=== PATIENT | male | born 1950 | race African-American/Black ===

== ENCOUNTER 2017-04-26 11:23 | Inpatient (IN) | payer MEDICARE, MEDICAID ==
[~2017-04-26] VITALS: Ht 180.3 cm; Wt 46.3 kg
[~2017-04-26 11:23] MED LIST: AMLO10TA80 PO; CINA60 PO; CLON0.1T PO; ESOM20SU PO; FOLI-43 PO; FOLI1TAB63 PO; HYDR-523 PO; LOSA100T14 PO; MEGE40TA2; OMEPRAZOLE; ONDA4TAB5 PO; PROSTAT; SIMV20TA6 PO; TEMA30CA5 PO; TRAM50TA3 PO
[2017-04-26] MEDS ORDERED: NITROGLYCERIN OINT 1GM/INCH UDPKT TD STA (12:12)
[2017-04-26] MEDS ORDERED: MORPHINE SULFATE 4 MG/ML CPJ (NOT FOR IM USE) IV STA (12:12)
[2017-04-26] MEDS ORDERED: CLOPIDOGREL 75MG TABLET PO ONE (12:15)
[2017-04-26 12:33] LABS: BASOPHILS % 0.3 % (0.0-2.0); HEMATOCRIT. 35.3 % (42.0-52.0); HEMOGLOBIN. 11.8 g/dL (14.0-18.0); LYMPHOCYTES % 15.9 % (20.0-50.0); MEAN CORPUSCULAR VOLUME 86.6 fL (80.0-94.0); MEAN PLATELET VOLUME 7.7 fl (7.4-10.4); MONOCYTES % 8.1 % (2.0-8.0); NEUTROPHILS % 74.7 % (40.0-76.0); PLATELET 217 x1000/uL (130-400); RED BLOOD CELL COUNT 4.07 mill/uL (4.7-6.1); RED CELL DISTRIBUTION WIDTH 16.8 % (11.6-14.6)
[2017-04-26 12:47] LABS: CARBON DIOXIDE 24 mEq/L (21-32); CHLORIDE 101 mEq/L (98-107); TROPONIN I 0.03 ng/mL (0.00-0.04)
[2017-04-26] MEDS ORDERED: LORAZEPAM 2MG/ML CPJ IV ONE (14:30)
[2017-04-26] MEDS ORDERED: MORPHINE SULFATE 2 MG/ML CPJ (NOT FOR IM USE) IV ONE (14:30)
[2017-04-26] MEDS ORDERED: IPRATROPIUM/ALBUTEROL 0.5-3(2.5)MG/3ML NEB INH PRN (15:00)
[2017-04-26] MEDS ORDERED: CLONIDINE 0.1MG TABLET PO PRN (15:00)
[2017-04-26] MEDS ORDERED: DOCUSATE SODIUM 100MG CAPSULE PO PRN (15:00)
[2017-04-26] MEDS ORDERED: GUAIFENESIN 200MG/10ML SUGAR FREE UDC PO PRN (15:00)
[2017-04-26] MEDS ORDERED: ONDANSETRON HCL 4MG/2ML VIAL IV PRN (15:00)
[2017-04-26] MEDS ORDERED: REGADENOSON 0.4 MG/5 ML IV NR (16:45)
[2017-04-26 17:33] VITALS: BP 197/95
[2017-04-26] MEDS: AMLODIPINE 10MG TABLET PO SCH (17:41)
[2017-04-26 17:52] VITALS: BP 197/95
[2017-04-26] MEDS: LOSARTAN POTASSIUM 100 MG TABLET PO SCH (18:56)
[2017-04-26 20:00] VITALS: BP 162/83
[2017-04-26] MEDS: METOPROLOL TARTRATE 25MG TABLET PO SCH (21:10)
[2017-04-26] MEDS: HYDROMORPHONE HCL/PF 2MG/ML CPJ IV PRN (21:10)
[2017-04-26 23:24] LABS: TROPONIN I 0.06 ng/mL (0.00-0.04)
[2017-04-26] MEDS: DIPHENHYDRAMINE 50MG/ML VIAL IV PRN (23:45)
[2017-04-27] VITALS: BP 115/73
[2017-04-27 04:00] VITALS: BP 164/96
[2017-04-27 07:54] LABS: BASOPHILS % 0.6 % (0.0-2.0); EOSINOPHILS % 5.3 % (0.0-5.0); HEMOGLOBIN. 12.3 g/dL (14.0-18.0); LYMPHOCYTES % 20.1 % (20.0-50.0); MEAN CORPUSCULAR VOLUME 84.6 fL (80.0-94.0); MEAN PLATELET VOLUME 7.7 fl (7.4-10.4); MONOCYTES % 9.5 % (2.0-8.0); NEUTROPHILS % 64.5 % (40.0-76.0); PLATELET 220 x1000/uL (130-400); RED BLOOD CELL COUNT 4.26 mill/uL (4.7-6.1); RED CELL DISTRIBUTION WIDTH 16.9 % (11.6-14.6)
[2017-04-27 08:00] VITALS: BP 176/73
[2017-04-27 08:05] LABS: CARBON DIOXIDE 27 mEq/L (21-32); CHLORIDE 99 mEq/L (98-107); CREATINE KINASE 104 IU/L (39-308); CREATINE KINASE MB FRACTION 2.3 ng/mL (0.5-3.6); LDL CHOLESTEROL 51 mg/dL (5-100); PHOSPHORUS 3.1 mg/dL (2.5-4.9); TROPONIN I 0.04 ng/mL (0.00-0.04)
[2017-04-27 08:06] LABS: HDL CHOLESTEROL 61 mg/dL (40-59)
[2017-04-27] MEDS: LOSARTAN POTASSIUM 100 MG TABLET PO SCH (09:00)
[2017-04-27] MEDS: METOPROLOL TARTRATE 25MG TABLET PO SCH ×2 (09:00→19:35)
[2017-04-27] MEDS: AMLODIPINE 10MG TABLET PO SCH (09:00)
[2017-04-27] MEDS: FOLIC ACID/VITAMIN B COMP W-C TABLET PO SCH (09:26)
[2017-04-27] MEDS: CINACALCET HCL 60MG TABLET PO SCH (09:26)
[2017-04-27] MEDS: ASPIRIN 81MG EC TABLET PO SCH (09:26)
[2017-04-27] MEDS: ACETAMINOPHEN 325MG TABLET PO PRN ×2 (09:30→17:51)
[2017-04-27] MEDS ORDERED: REGADENOSON 0.4 MG/5 ML IV ONE (11:55)
[2017-04-27 12:00] VITALS: BP 135/75
[2017-04-27 16:00] VITALS: BP 167/73
[2017-04-27] MEDS: HYDROMORPHONE HCL/PF 2MG/ML CPJ IV PRN (19:35)
[2017-04-27 20:00] VITALS: BP 167/76
[2017-04-28] VITALS: BP 187/90
[2017-04-28 04:00] VITALS: BP_SYST 153; BP_SYST 163; BP_DIAS 78
[2017-04-28 07:39] LABS: BASOPHILS % 0.7 % (0.0-2.0); EOSINOPHILS % 5.5 % (0.0-5.0); HEMATOCRIT. 27.2 % (42.0-52.0); HEMOGLOBIN. 9.5 g/dL (14.0-18.0); LYMPHOCYTES % 24.9 % (20.0-50.0); MEAN CORPUSCULAR HEMOGLOBIN 29.4 pg (28.0-32.0); MEAN CORPUSCULAR VOLUME 83.9 fL (80.0-94.0); MONOCYTES % 10.7 % (2.0-8.0); NEUTROPHILS % 58.2 % (40.0-76.0); PLATELET 194 x1000/uL (130-400); RED BLOOD CELL COUNT 3.24 mill/uL (4.7-6.1); RED CELL DISTRIBUTION WIDTH 16.7 % (11.6-14.6)
[2017-04-28 08:00] VITALS: BP 143/68
[2017-04-28 08:48] LABS: TROPONIN I 0.03 ng/mL (0.00-0.04)
[2017-04-28] MEDS: FOLIC ACID/VITAMIN B COMP W-C TABLET PO SCH (08:48)
[2017-04-28] MEDS: METOPROLOL TARTRATE 25MG TABLET PO SCH (08:48)
[2017-04-28] MEDS: CINACALCET HCL 60MG TABLET PO SCH (08:48)
[2017-04-28] MEDS: ASPIRIN 81MG EC TABLET PO SCH (08:48)
[2017-04-28] MEDS: LOSARTAN POTASSIUM 100 MG TABLET PO SCH (08:48)
[2017-04-28] MEDS: AMLODIPINE 10MG TABLET PO SCH (08:48)
[2017-04-28] MEDS: DIPHENHYDRAMINE 50MG/ML VIAL IV PRN (08:56)
[2017-04-28] MEDS: HYDROMORPHONE HCL/PF 2MG/ML CPJ IV PRN (08:57)
[2017-04-28 12:00] VITALS: BP 155/70
[2017-04-28 16:00] VITALS: BP 148/65
[2017-04-28 16:19] VITALS: BP 148/65
[2017-06-13] MEDS ORDERED: LOSA100T3 PO (23:29)
[2017-06-13] MEDS ORDERED: SIMV20TA6 PO (23:29)
[2017-06-13] MEDS ORDERED: HYDR-4134 PO (23:29)
[2017-06-13] MEDS ORDERED: CHOL100044 PO (23:29)
== END 2017-04-28 16:45 | DRG 194 ==
LOC: ER 11:46 → 7WST 13:13 → EDBEDREQ 13:47 → ENRESERV 15:36
PROVIDERS: ADMIT Hospitalist; ATTEND Hospitalist
PROC: 5A1D00Z (ICD-10-PCS; principal; 2017-04-27)
DX: I13.2 Hypertensive heart and chronic kidney disease with heart failure and with stage 5 chronic kidney disease, or end stage renal disease (principal); N18.6 End stage renal disease; I69.354 Hemiplegia and hemiparesis following cerebral infarction affecting left non-dominant side; R07.9 Chest pain, unspecified; I50.32 Chronic diastolic (congestive) heart failure; E87.5 Hyperkalemia; F14.10 Cocaine abuse, uncomplicated; E78.5 Hyperlipidemia, unspecified; D63.8 Anemia in other chronic diseases classified elsewhere; I44.7 Left bundle-branch block, unspecified; K40.90 Unilateral inguinal hernia, without obstruction or gangrene, not specified as recurrent; J44.9 Chronic obstructive pulmonary disease, unspecified; K21.9 Gastro-esophageal reflux disease without esophagitis; R47.01 Aphasia; Z74.01 Bed confinement status; Z87.01 Personal history of pneumonia (recurrent); Z87.891 Personal history of nicotine dependence; Z99.2 Dependence on renal dialysis; Z79.899 Other long term (current) drug therapy; Z79.1 Long term (current) use of non-steroidal anti-inflammatories (NSAID); Z88.6 Allergy status to analgesic agent
CPT/HCPCS: 36415; 71010; 78452; 80048; 80053; 80061; 82550; 82553; 82962; 83690; 84100; 84484; 85025; 93005; 93017; 93306; 93970; 96374; 96375; 96376; 99285; A9500; C1893; J1170; J1200; J2060; J2270; J2785

== ENCOUNTER 2018-03-27 13:52 | Inpatient (IN) | payer MEDICARE, MEDICAID ==
[~2018-03-27] VITALS: Ht 177.8 cm; Wt 63.5 kg
[~2018-03-27 13:52] MED LIST changes: +ACET-2853 PO; +CHOL100044 PO; -FOLI-43 PO; +HYDR-4134 PO; -LOSA100T14 PO; +LOSA100T3 PO; -MEGE40TA2; -OMEPRAZOLE; -PROSTAT
[2018-03-27 17:03] LABS: HEMATOCRIT. 35.7 % (42.0-52.0); HEMOGLOBIN. 12.3 g/dL (14.0-18.0); MEAN CORPUSCULAR HEMOGLOBIN 31.4 pg (28.0-32.0); MEAN CORPUSCULAR VOLUME 91.3 fL (80.0-94.0); MEAN PLATELET VOLUME 7.6 fl (7.4-10.4); PLATELET 253 x1000/uL (130-400); RED BLOOD CELL COUNT 3.91 mill/uL (4.7-6.1); RED CELL DISTRIBUTION WIDTH 16.1 % (11.6-14.6)
[2018-03-27 17:06] LABS: CHLORIDE 95 mEq/L (98-107)
[2018-03-27 17:08] LABS: INR 1.1; PROTHROMBIN TIME 10.6 sec (9.1-11.1)
[2018-03-27 17:41] LABS: PLATELET ESTIMATE NORMAL
[2018-03-28] VITALS (10 sets, daily range): BP systolic 93–123; BP diastolic 57–77
[2018-03-28] MEDS ORDERED: ONDANSETRON 4MG ODT PO PRN (09:15)
[2018-03-28] MEDS ORDERED: CLONIDINE 0.1MG TABLET PO PRN (09:15)
[2018-03-28] MEDS ORDERED: ONDANSETRON HCL 4MG/2ML VIAL IV PRN (09:15)
[2018-03-28] MEDS: AMLODIPINE 10MG TABLET PO SCH (11:11)
[2018-03-28] MEDS: PANTOPRAZOLE SODIUM 40 MG/VIAL IV SCH (11:11)
[2018-03-28] MEDS: FOLIC ACID/VITAMIN B COMP W-C TABLET PO SCH (11:12)
[2018-03-28] MEDS: CHOLECALCIFEROL (D3) 1000 UNIT TABLET PO SCH (11:12)
[2018-03-28] MEDS ORDERED: BISACODYL 10MG SUPP PR PRN (12:00)
[2018-03-28] MEDS ORDERED: BISACODYL 10MG SUPP PR NR (12:00)
[2018-03-28] MEDS ORDERED: DILTIAZEM HCL 5MG/ML 5ML VIAL IV PRN (16:00)
[2018-03-28] MEDS: CINACALCET HCL 60MG TABLET PO SCH (18:39)
[2018-03-28] MEDS: ENOXAPARIN 30MG/0.3ML SYR SUBCUT SCH (18:41)
[2018-03-28 20:27] LABS: AMMONIA 32 uMol/L (<32)
[2018-03-28] MEDS: ATORVASTATIN CALCIUM 20MG TABLET PO SCH (21:23)
[2018-03-28] MEDS: CARVEDILOL 3.125 MG TABLET PO SCH (21:23)
[2018-03-28] MEDS: ACETAMINOPHEN 325MG TABLET PO PRN (21:48)
[2018-03-29] VITALS (16 sets, daily range): BP systolic 86–155; BP diastolic 54–73
[2018-03-29 06:16] LABS: BASOPHILS % 0.2 % (0.0-2.0); HEMATOCRIT. 35.9 % (42.0-52.0); HEMOGLOBIN. 12.2 g/dL (14.0-18.0); MEAN CORPUSCULAR HEMOGLOBIN 31.4 pg (28.0-32.0); MEAN CORPUSCULAR VOLUME 92.6 fL (80.0-94.0); MEAN PLATELET VOLUME 8.6 fl (7.4-10.4); MONOCYTES % 6.1 % (2.0-8.0); NEUTROPHILS % 83.7 % (40.0-76.0); PLATELET 219 x1000/uL (130-400); RED BLOOD CELL COUNT 3.88 mill/uL (4.7-6.1); RED CELL DISTRIBUTION WIDTH 16.4 % (11.6-14.6)
[2018-03-29] MEDS ORDERED: LIDOCAINE HCL 1% 20ML VIAL (Pyxis) INJ ONE (07:26)
[2018-03-29] MEDS: CHOLECALCIFEROL (D3) 1000 UNIT TABLET PO SCH (09:00)
[2018-03-29] MEDS: AMLODIPINE 10MG TABLET PO SCH (09:00)
[2018-03-29] MEDS: CARVEDILOL 3.125 MG TABLET PO SCH ×2 (09:00→21:19)
[2018-03-29] MEDS ORDERED: METOPROLOL TARTRATE 25MG TABLET PO SCH (10:00)
[2018-03-29] MEDS: PANTOPRAZOLE SODIUM 40 MG/VIAL IV SCH (10:07)
[2018-03-29] MEDS: FOLIC ACID/VITAMIN B COMP W-C TABLET PO SCH (10:14)
[2018-03-29] MEDS ORDERED: DILTIAZEM HCL 5MG/ML 5ML VIAL IV PRN (14:15)
[2018-03-29] MEDS ORDERED: DILTIAZEM HCL 125 MG in DEXT 5% WATER 100 ML IV PRN (17:00)
[2018-03-29] MEDS: CINACALCET HCL 60MG TABLET PO SCH ×2 (17:00→19:03)
[2018-03-29] MEDS: DILTIAZEM HCL 125 MG in DEXT 5% WATER 100 ML IV SCH (17:18)
[2018-03-29] MEDS: ENOXAPARIN 30MG/0.3ML SYR SUBCUT SCH (18:11)
[2018-03-29] MEDS: ATORVASTATIN CALCIUM 20MG TABLET PO SCH (21:19)
[2018-03-30] VITALS (12 sets, daily range): BP systolic 107–124; BP diastolic 57–75
[2018-03-30] MEDS: DILTIAZEM HCL 125 MG in DEXT 5% WATER 100 ML IV SCH ×2 (00:21→05:45)
[2018-03-30 06:16] LABS: BASOPHILS % 0.1 % (0.0-2.0); HEMATOCRIT. 36.3 % (42.0-52.0); HEMOGLOBIN. 12.5 g/dL (14.0-18.0); LYMPHOCYTES % 7.9 % (20.0-50.0); MEAN CORPUSCULAR HEMOGLOBIN 31.8 pg (28.0-32.0); MEAN CORPUSCULAR VOLUME 92.6 fL (80.0-94.0); MEAN PLATELET VOLUME 8.7 fl (7.4-10.4); MONOCYTES % 5.9 % (2.0-8.0); NEUTROPHILS % 86.1 % (40.0-76.0); PLATELET 250 x1000/uL (130-400); RED BLOOD CELL COUNT 3.92 mill/uL (4.7-6.1); RED CELL DISTRIBUTION WIDTH 16.4 % (11.6-14.6)
[2018-03-30 07:46] LABS: BG BASE EXCESS 4.4 mmol/L (-2.0-2.0); BG CARBOXYHEMOGLOBIN 0.2 % (0.5-1.5); BG DEOXYHEMOGLOBIN 6.7 % (0.0-5.0); BG HCO3 ACT 28.8 mmol/L (22.0-26.0); BG METHEMOGLOBIN 0.3 % (0.0-1.5); BG OXYGEN SATURATION 93.3 % (92.0-98.5); BG OXYHEMOGLOBIN 92.8 % (94.0-97.0); BG PCO2 42.1 mmHg (35.0-45.0); BG PH 7.453 (7.350-7.450); BG PO2 65.6 mmHg (75.0-100.0); BG SAMPLE SITE LEFT RADIAL; BG TOTAL HEMOGLOBIN 12.4 g/dL (12.0-18.0); BG VENT MODE MASK - NRB
[2018-03-30] MEDS: FAMOTIDINE 20MG/2ML VIAL IV SCH (08:37)
[2018-03-30] MEDS: FOLIC ACID/VITAMIN B COMP W-C TABLET GT SCH (08:37)
[2018-03-30] MEDS: AMLODIPINE 10MG TABLET PO SCH (08:38)
[2018-03-30] MEDS: CHOLECALCIFEROL (D3) 1000 UNIT TABLET PO SCH (08:38)
[2018-03-30] MEDS: CARVEDILOL 3.125 MG TABLET PO SCH ×2 (08:39→21:04)
[2018-03-30 09:32] LABS: PHOSPHORUS 1.9 mg/dL (2.5-4.9)
[2018-03-30 09:36] LABS: T4 FREE 1.12 ng/dL (0.76-1.46)
[2018-03-30] MEDS: PIPERACILLIN/TAZ 2.25G PREMIX 50 ML IV SCH ×2 (12:28→17:21)
[2018-03-30] MEDS ORDERED: ALBUTEROL (0.083%) 2.5MG/3ML NEB HHN PRN (14:45)
[2018-03-30 15:11] LABS: BG BASE EXCESS 2.8 mmol/L (-2.0-2.0); BG CARBOXYHEMOGLOBIN 0.5 % (0.5-1.5); BG DEOXYHEMOGLOBIN 6.5 % (0.0-5.0); BG HCO3 ACT 26.6 mmol/L (22.0-26.0); BG METHEMOGLOBIN 0.2 % (0.0-1.5); BG OXYGEN SATURATION 93.5 % (92.0-98.5); BG OXYHEMOGLOBIN 92.8 % (94.0-97.0); BG PH 7.463 (7.350-7.450); BG PO2 65.6 mmHg (75.0-100.0); BG SAMPLE SITE LEFT RADIAL; BG TOTAL HEMOGLOBIN 12.8 g/dL (12.0-18.0); BG VENT MODE MASK - NRB
[2018-03-30] MEDS ORDERED: SODIUM PHOS,M-BASIC-D-BASIC 15 MM in DEXT 5% WATER 245 ML IV NR (16:30)
[2018-03-30] MEDS: ALBUTEROL (0.083%) 2.5MG/3ML NEB HHN SCH ×2 (16:45→21:00)
[2018-03-30] MEDS: ENOXAPARIN 30MG/0.3ML SYR SUBCUT SCH (18:51)
[2018-03-30] MEDS: ATORVASTATIN CALCIUM 20MG TABLET PO SCH (21:04)
[2018-03-31] VITALS (12 sets, daily range): BP systolic 95–113; BP diastolic 49–67
[2018-03-31] MEDS: PIPERACILLIN/TAZ 2.25G PREMIX 50 ML IV SCH ×3 (01:04→18:04)
[2018-03-31] MEDS: ALBUTEROL (0.083%) 2.5MG/3ML NEB HHN SCH ×7 (01:07→23:57)
[2018-03-31 06:17] LABS: HEMATOCRIT. 35.1 % (42.0-52.0); HEMOGLOBIN. 12.3 g/dL (14.0-18.0); MEAN CORPUSCULAR HEMOGLOBIN 32.9 pg (28.0-32.0); MEAN CORPUSCULAR VOLUME 93.7 fL (80.0-94.0); MEAN PLATELET VOLUME 8.9 fl (7.4-10.4); PLATELET 234 x1000/uL (130-400); RED BLOOD CELL COUNT 3.74 mill/uL (4.7-6.1); RED CELL DISTRIBUTION WIDTH 16.7 % (11.6-14.6)
[2018-03-31 08:04] LABS: BG BASE EXCESS 0.5 mmol/L (-2.0-2.0); BG CARBOXYHEMOGLOBIN 0.3 % (0.5-1.5); BG DEOXYHEMOGLOBIN 15.6 % (0.0-5.0); BG FRACTION INSPIRED OXYGEN 32; BG HCO3 ACT 24.7 mmol/L (22.0-26.0); BG METHEMOGLOBIN 0.3 % (0.0-1.5); BG OXYGEN SATURATION 84.3 % (92.0-98.5); BG OXYHEMOGLOBIN 83.8 % (94.0-97.0); BG PO2 47.1 mmHg (75.0-100.0); BG SAMPLE SITE LEFT RADIAL; BG TOTAL HEMOGLOBIN 11.9 g/dL (12.0-18.0); BG VENT MODE NASAL CANNULA
[2018-03-31] MEDS: CARVEDILOL 3.125 MG TABLET PO SCH ×2 (09:00→21:00)
[2018-03-31] MEDS: AMLODIPINE 10MG TABLET PO SCH (09:00)
[2018-03-31] MEDS: FOLIC ACID/VITAMIN B COMP W-C TABLET GT SCH (09:59)
[2018-03-31] MEDS: FAMOTIDINE 20MG/2ML VIAL IV SCH (09:59)
[2018-03-31] MEDS: CHOLECALCIFEROL (D3) 1000 UNIT TABLET PO SCH (09:59)
[2018-03-31 10:03] LABS: BG CARBOXYHEMOGLOBIN 0.4 % (0.5-1.5); BG DEOXYHEMOGLOBIN 4.7 % (0.0-5.0); BG FRACTION INSPIRED OXYGEN 99.8; BG HCO3 ACT 24.9 mmol/L (22.0-26.0); BG METHEMOGLOBIN 0.4 % (0.0-1.5); BG OXYGEN SATURATION 95.3 % (92.0-98.5); BG OXYHEMOGLOBIN 94.5 % (94.0-97.0); BG PH 7.445 (7.350-7.450); BG SAMPLE SITE LEFT RADIAL; BG TOTAL HEMOGLOBIN 11.7 g/dL (12.0-18.0); BG VENT MODE MASK - NRB
[2018-03-31] MEDS: DILTIAZEM HCL 125 MG in DEXT 5% WATER 100 ML IV SCH ×2 (10:03→21:28)
[2018-03-31] MEDS ORDERED: SODIUM CHLORIDE 0.9% 250ML IV SOLN IV SCH (10:30)
[2018-03-31 11:02] LABS: PHOSPHORUS 2.5 mg/dL (2.5-4.9)
[2018-03-31 13:37] LABS: PLATELET ESTIMATE NORMAL
[2018-03-31] MEDS: ENOXAPARIN 30MG/0.3ML SYR SUBCUT SCH (18:04)
[2018-03-31] MEDS: ATORVASTATIN CALCIUM 20MG TABLET PO SCH (21:28)
[2018-04-01] VITALS (19 sets, daily range): BP systolic 91–148; BP diastolic 41–110
[2018-04-01] MEDS: PIPERACILLIN/TAZ 2.25G PREMIX 50 ML IV SCH ×3 (01:50→17:34)
[2018-04-01] MEDS: ALBUTEROL (0.083%) 2.5MG/3ML NEB HHN SCH ×5 (04:07→20:49)
[2018-04-01 07:22] LABS: HEMATOCRIT. 30.6 % (42.0-52.0); HEMOGLOBIN. 10.2 g/dL (14.0-18.0); MEAN CORPUSCULAR HEMOGLOBIN 31.2 pg (28.0-32.0); MEAN CORPUSCULAR VOLUME 93.2 fL (80.0-94.0); MEAN PLATELET VOLUME 8.8 fl (7.4-10.4); PLATELET 244 x1000/uL (130-400); RED BLOOD CELL COUNT 3.28 mill/uL (4.7-6.1); RED CELL DISTRIBUTION WIDTH 16.4 % (11.6-14.6)
[2018-04-01] MEDS: DILTIAZEM HCL 125 MG in DEXT 5% WATER 100 ML IV SCH (08:56)
[2018-04-01] MEDS: ENOXAPARIN 60MG/0.6ML SYR SUBCUT SCH (08:57)
[2018-04-01] MEDS: FAMOTIDINE 20MG/2ML VIAL IV SCH (08:57)
[2018-04-01] MEDS: FOLIC ACID/VITAMIN B COMP W-C TABLET GT SCH (08:57)
[2018-04-01] MEDS: CHOLECALCIFEROL (D3) 1000 UNIT TABLET PO SCH (08:57)
[2018-04-01] MEDS: CARVEDILOL 3.125 MG TABLET PO SCH (08:59)
[2018-04-01] MEDS: AMLODIPINE 10MG TABLET PO SCH (08:59)
[2018-04-01 11:27] LABS: BG BASE EXCESS -1.7 mmol/L (-2.0-2.0); BG CARBOXYHEMOGLOBIN 0.3 % (0.5-1.5); BG DEOXYHEMOGLOBIN 3.3 % (0.0-5.0); BG FRACTION INSPIRED OXYGEN 100; BG METHEMOGLOBIN 0.3 % (0.0-1.5); BG OXYGEN SATURATION 96.7 % (92.0-98.5); BG OXYHEMOGLOBIN 96.1 % (94.0-97.0); BG PCO2 38.5 mmHg (35.0-45.0); BG PH 7.394 (7.350-7.450); BG PO2 92.7 mmHg (75.0-100.0); BG SAMPLE SITE LEFT RADIAL; BG TOTAL HEMOGLOBIN 10.8 g/dL (12.0-18.0); BG VENT MODE MASK - NRB
[2018-04-01 13:57] LABS: PLATELET ESTIMATE NORMAL
[2018-04-01] MEDS: METOPROLOL TARTRATE 25MG TABLET PO SCH ×2 (14:23→20:39)
[2018-04-01] MEDS: ACETYLCYSTEINE 100MG/ML 10% VIAL 4ML INH SCH (16:28)
[2018-04-01] MEDS: BUDESONIDE 0.5MG/2ML NEB HHN SCH ×2 (16:28→20:49)
[2018-04-01] MEDS: ATORVASTATIN CALCIUM 20MG TABLET PO SCH (20:39)
[2018-04-01] MEDS: MORPHINE SULFATE 4 MG/ML CPJ (NOT FOR IM USE) IV PRN (22:44)
[2018-04-02] VITALS (19 sets, daily range): BP systolic 94–151; BP diastolic 57–75
[2018-04-02] MEDS: ACETYLCYSTEINE 100MG/ML 10% VIAL 4ML INH SCH ×3 (00:25→15:43)
[2018-04-02] MEDS: ALBUTEROL (0.083%) 2.5MG/3ML NEB HHN SCH ×6 (00:26→20:51)
[2018-04-02] MEDS: PIPERACILLIN/TAZ 2.25G PREMIX 50 ML IV SCH ×3 (01:30→18:34)
[2018-04-02] MEDS: MORPHINE SULFATE 4 MG/ML CPJ (NOT FOR IM USE) IV PRN (06:42)
[2018-04-02 07:07] LABS: HEMATOCRIT. 32.1 % (42.0-52.0); MEAN CORPUSCULAR HEMOGLOBIN 31.4 pg (28.0-32.0); MEAN CORPUSCULAR VOLUME 91.7 fL (80.0-94.0); MEAN PLATELET VOLUME 8.9 fl (7.4-10.4); PLATELET 281 x1000/uL (130-400); RED CELL DISTRIBUTION WIDTH 16.6 % (11.6-14.6)
[2018-04-02] MEDS ORDERED: DILTIAZEM HCL 60MG TABLET PO SCH (08:00)
[2018-04-02] MEDS: BUDESONIDE 0.5MG/2ML NEB HHN SCH ×2 (08:31→20:51)
[2018-04-02] MEDS: FOLIC ACID/VITAMIN B COMP W-C TABLET GT SCH (08:47)
[2018-04-02] MEDS: FAMOTIDINE 20MG/2ML VIAL IV SCH (08:47)
[2018-04-02] MEDS: CHOLECALCIFEROL (D3) 1000 UNIT TABLET PO SCH (08:48)
[2018-04-02] MEDS: ENOXAPARIN 60MG/0.6ML SYR SUBCUT SCH (08:48)
[2018-04-02] MEDS: METOPROLOL TARTRATE 50MG TABLET PO SCH ×2 (09:03→21:14)
[2018-04-02 10:48] LABS: PLATELET ESTIMATE NORMAL
[2018-04-02] MEDS: DILTIAZEM HCL 90MG TABLET PO SCH ×2 (12:41→18:00)
[2018-04-02] MEDS: SODIUM CHLORIDE 0.45% 1,000 ML IV SCH (13:20)
[2018-04-02] MEDS: DILTIAZEM HCL 125 MG in DEXT 5% WATER 100 ML IV SCH ×2 (13:46→21:00)
[2018-04-02 14:58] LABS: INR 1.1; PROTHROMBIN TIME 10.9 sec (9.1-11.1)
[2018-04-02] MEDS ORDERED: VANCOMYCIN 1250MG in DEXTROSE 5% WATER 250ML IV NR (18:00)
[2018-04-02] MEDS: METOCLOPRAMIDE HCL 10MG/2ML VIAL IV SCH (18:45)
[2018-04-02] MEDS: ATORVASTATIN CALCIUM 20MG TABLET PO SCH (21:09)
[2018-04-02] MEDS ORDERED: HYDROCODONE/ACETAMINOPHEN 5/325MG TABLET PO PRN (21:30)
[2018-04-02] MEDS: TEMAZEPAM 15MG CAPSULE PO PRN (22:01)
[2018-04-03] VITALS (18 sets, daily range): BP systolic 82–161; BP diastolic 41–72
[2018-04-03] MEDS: ACETYLCYSTEINE 100MG/ML 10% VIAL 4ML INH SCH ×3 (00:48→16:36)
[2018-04-03] MEDS: ALBUTEROL (0.083%) 2.5MG/3ML NEB HHN SCH ×6 (00:48→20:12)
[2018-04-03] MEDS: PIPERACILLIN/TAZ 2.25G PREMIX 50 ML IV SCH ×3 (01:32→18:14)
[2018-04-03] MEDS: METOCLOPRAMIDE HCL 10MG/2ML VIAL IV SCH ×4 (01:32→23:48)
[2018-04-03] MEDS: DILTIAZEM HCL 90MG TABLET PO SCH ×4 (05:19→23:49)
[2018-04-03] MEDS: DILTIAZEM HCL 125 MG in DEXT 5% WATER 100 ML IV SCH ×3 (05:21→23:19)
[2018-04-03 07:28] LABS: HEMATOCRIT. 32.6 % (42.0-52.0); HEMOGLOBIN. 10.8 g/dL (14.0-18.0); MEAN CORPUSCULAR HEMOGLOBIN 30.9 pg (28.0-32.0); MEAN CORPUSCULAR VOLUME 93.6 fL (80.0-94.0); MEAN PLATELET VOLUME 8.7 fl (7.4-10.4); PLATELET 274 x1000/uL (130-400); RED BLOOD CELL COUNT 3.48 mill/uL (4.7-6.1); RED CELL DISTRIBUTION WIDTH 16.2 % (11.6-14.6)
[2018-04-03] MEDS: BUDESONIDE 0.5MG/2ML NEB HHN SCH (07:54)
[2018-04-03] MEDS: FAMOTIDINE 20MG/2ML VIAL IV SCH (09:55)
[2018-04-03] MEDS: CHOLECALCIFEROL (D3) 1000 UNIT TABLET PO SCH (09:55)
[2018-04-03] MEDS: FOLIC ACID/VITAMIN B COMP W-C TABLET GT SCH (09:55)
[2018-04-03] MEDS: METOPROLOL TARTRATE 50MG TABLET PO SCH ×2 (09:56→20:17)
[2018-04-03] MEDS: SODIUM CHLORIDE 0.45% 1,000 ML IV SCH (11:15)
[2018-04-03] MEDS ORDERED: BACITRACIN ZINC 15GM TUBE TOP ONE (12:24)
[2018-04-03] MEDS ORDERED: BUPIVACAINE HCL/PF 0.5% (5MG/ML) 10ML ONE ×2 (12:25→13:09)
[2018-04-03] MEDS ORDERED: THROMBIN (BOVINE) 5000 UNITS/VIAL TOP ONE (12:25)
[2018-04-03] MEDS ORDERED: HEPARIN SODIUM 1,000 UNIT/1ML VIAL IV ONE (12:25)
[2018-04-03] MEDS ORDERED: LIDOCAINE HCL/PF 1% 10 MG/ML 5ML VIAL ONE ×3 (12:26→13:09)
[2018-04-03] MEDS ORDERED: GELATIN SPONGE,COMPRESSED SZ 100 ONE (12:26)
[2018-04-03] MEDS ORDERED: BACITRACIN 50,000 UNITS/VIAL ONE (12:26)
[2018-04-03] MEDS ORDERED: NORMAL SALINE 0.9% 10 ML SYR ONE (12:27)
[2018-04-03] MEDS ORDERED: FENTANYL CITRATE/PF 50MCG/ML 2ML VIAL ONE (12:56)
[2018-04-03] MEDS ORDERED: PROPOFOL 200MG/20ML VIAL IV ONE (12:56)
[2018-04-03] MEDS ORDERED: GLYCOPYRROLATE 0.2 MG/ML 2ML VIAL ONE (12:57)
[2018-04-03] MEDS ORDERED: ONDANSETRON HCL 4MG/2ML VIAL ONE (12:57)
[2018-04-03] MEDS ORDERED: MIDAZOLAM HCL 2 MG/2 ML VIAL ONE ×2 (12:57→13:05)
[2018-04-03] MEDS ORDERED: METOCLOPRAMIDE HCL 10MG/2ML VIAL ONE (12:57)
[2018-04-03] MEDS ORDERED: HEPARIN 5000 UNITS/ML VIAL ONE (13:16)
[2018-04-03] MEDS ORDERED: SODIUM CHLORIDE 0.9% 1,000 ML IV NR (13:53)
[2018-04-03] MEDS ORDERED: SKIN ADHESIVE 0.7 GM EA TOP ONE (13:59)
[2018-04-03] MEDS ORDERED: ONDANSETRON HCL 4MG/2ML VIAL IV PRN (14:00)
[2018-04-03] MEDS: HYDROMORPHONE HCL/PF 2MG/ML CPJ IV PRN ×3 (15:08→15:35)
[2018-04-03 15:16] LABS: PLATELET ESTIMATE NORMAL
[2018-04-03 18:01] LABS: AMMONIA 27 uMol/L (<32)
[2018-04-03] MEDS: ATORVASTATIN CALCIUM 20MG TABLET PO SCH (20:17)
[2018-04-03] MEDS: TEMAZEPAM 15MG CAPSULE PO PRN (20:20)
[2018-04-04] VITALS (12 sets, daily range): BP systolic 112–174; BP diastolic 54–71
[2018-04-04] MEDS: ACETYLCYSTEINE 100MG/ML 10% VIAL 4ML INH SCH ×3 (00:21→14:00)
[2018-04-04] MEDS: ALBUTEROL (0.083%) 2.5MG/3ML NEB HHN SCH ×5 (00:22→21:11)
[2018-04-04] MEDS: BUDESONIDE 0.5MG/2ML NEB HHN SCH ×2 (00:33→13:04)
[2018-04-04] MEDS: PIPERACILLIN/TAZ 2.25G PREMIX 50 ML IV SCH ×3 (00:51→17:36)
[2018-04-04] MEDS: METOCLOPRAMIDE HCL 10MG/2ML VIAL IV SCH ×3 (05:22→17:37)
[2018-04-04] MEDS: DILTIAZEM HCL 90MG TABLET PO SCH ×3 (05:22→17:38)
[2018-04-04] MEDS: SODIUM CHLORIDE 0.45% 1,000 ML IV SCH (06:31)
[2018-04-04] MEDS: DILTIAZEM HCL 125 MG in DEXT 5% WATER 100 ML IV SCH (06:31)
[2018-04-04 07:25] LABS: HEMATOCRIT. 29.2 % (42.0-52.0); HEMOGLOBIN. 9.8 g/dL (14.0-18.0); MEAN CORPUSCULAR HEMOGLOBIN 30.8 pg (28.0-32.0); MEAN CORPUSCULAR VOLUME 92.2 fL (80.0-94.0); MEAN PLATELET VOLUME 8.5 fl (7.4-10.4); PLATELET 301 x1000/uL (130-400); RED BLOOD CELL COUNT 3.16 mill/uL (4.7-6.1); RED CELL DISTRIBUTION WIDTH 16.2 % (11.6-14.6)
[2018-04-04 07:57] LABS: CHLORIDE 106 mEq/L (98-107)
[2018-04-04 08:07] LABS: PHOSPHORUS 3.9 mg/dL (2.5-4.9)
[2018-04-04] MEDS: FOLIC ACID/VITAMIN B COMP W-C TABLET GT SCH (09:00)
[2018-04-04] MEDS: CHOLECALCIFEROL (D3) 1000 UNIT TABLET PO SCH (09:00)
[2018-04-04] MEDS: METOPROLOL TARTRATE 50MG TABLET PO SCH ×2 (09:00→20:11)
[2018-04-04] MEDS: FAMOTIDINE 20MG/2ML VIAL IV SCH (09:08)
[2018-04-04 12:09] LABS: PLATELET ESTIMATE NORMAL
[2018-04-04] MEDS ORDERED: EZ-HD SUSPENSION(BARIUM SULFATE 340GM) PO ONE (14:34)
[2018-04-04] MEDS ORDERED: BARIUM SULFATE 176 GM SUSP.RECON ONE (14:35)
[2018-04-04] MEDS ORDERED: VANCOMYCIN 1 G PREMIX 200 ML IV NR (15:00)
[2018-04-04] MEDS: TEMAZEPAM 15MG CAPSULE PO PRN (20:11)
[2018-04-04] MEDS: ATORVASTATIN CALCIUM 20MG TABLET PO SCH (20:11)
[2018-04-05] VITALS (11 sets, daily range): BP systolic 110–143; BP diastolic 55–97
[2018-04-05] MEDS: ALBUTEROL (0.083%) 2.5MG/3ML NEB HHN SCH ×6 (00:16→20:26)
[2018-04-05] MEDS: ACETYLCYSTEINE 100MG/ML 10% VIAL 4ML INH SCH (00:16)
[2018-04-05] MEDS: METOCLOPRAMIDE HCL 10MG/2ML VIAL IV SCH ×4 (00:18→17:21)
[2018-04-05] MEDS: DILTIAZEM HCL 90MG TABLET PO SCH ×4 (00:19→17:21)
[2018-04-05] MEDS: PIPERACILLIN/TAZ 2.25G PREMIX 50 ML IV SCH ×3 (01:02→17:21)
[2018-04-05] MEDS: SODIUM CHLORIDE 0.45% 1,000 ML IV SCH ×2 (02:08→20:54)
[2018-04-05] MEDS: FAMOTIDINE 20MG/2ML VIAL IV SCH (09:07)
[2018-04-05] MEDS: CHOLECALCIFEROL (D3) 1000 UNIT TABLET PO SCH (09:07)
[2018-04-05] MEDS: FOLIC ACID/VITAMIN B COMP W-C TABLET GT SCH (09:07)
[2018-04-05] MEDS: METOPROLOL TARTRATE 50MG TABLET PO SCH ×2 (09:08→20:53)
[2018-04-05] MEDS ORDERED: LOPERAMIDE 2 MG/10 ML UDC PO PRN (10:30)
[2018-04-05 10:53] LABS: HEMATOCRIT. 31.7 % (42.0-52.0); HEMOGLOBIN. 10.5 g/dL (14.0-18.0); MEAN CORPUSCULAR HEMOGLOBIN 31.3 pg (28.0-32.0); MEAN CORPUSCULAR VOLUME 94.4 fL (80.0-94.0); MEAN PLATELET VOLUME 8.7 fl (7.4-10.4); PLATELET 262 x1000/uL (130-400); RED BLOOD CELL COUNT 3.36 mill/uL (4.7-6.1); RED CELL DISTRIBUTION WIDTH 16.1 % (11.6-14.6)
[2018-04-05 16:01] LABS: PLATELET ESTIMATE NORMAL
[2018-04-05] MEDS: TEMAZEPAM 15MG CAPSULE PO PRN (20:53)
[2018-04-05] MEDS: ATORVASTATIN CALCIUM 20MG TABLET PO SCH (20:53)
[2018-04-06] VITALS (12 sets, daily range): BP systolic 100–164; BP diastolic 52–95
[2018-04-06] MEDS: METOCLOPRAMIDE HCL 10MG/2ML VIAL IV SCH ×5 (00:15→23:08)
[2018-04-06] MEDS: ALBUTEROL (0.083%) 2.5MG/3ML NEB HHN SCH ×6 (00:53→20:41)
[2018-04-06] MEDS: ACETYLCYSTEINE 100MG/ML 10% VIAL 4ML INH SCH ×2 (00:53→08:26)
[2018-04-06] MEDS: PIPERACILLIN/TAZ 2.25G PREMIX 50 ML IV SCH ×3 (01:35→17:49)
[2018-04-06] MEDS: DILTIAZEM HCL 90MG TABLET PO SCH ×5 (06:03→23:28)
[2018-04-06 07:42] LABS: HEMATOCRIT. 26.7 % (42.0-52.0); MEAN CORPUSCULAR HEMOGLOBIN 31.3 pg (28.0-32.0); MEAN CORPUSCULAR VOLUME 92.7 fL (80.0-94.0); MEAN PLATELET VOLUME 8.4 fl (7.4-10.4); PLATELET 334 x1000/uL (130-400); RED BLOOD CELL COUNT 2.88 mill/uL (4.7-6.1); RED CELL DISTRIBUTION WIDTH 15.5 % (11.6-14.6)
[2018-04-06] MEDS: METOPROLOL TARTRATE 50MG TABLET PO SCH ×2 (09:00→20:17)
[2018-04-06] MEDS: CHOLECALCIFEROL (D3) 1000 UNIT TABLET PO SCH (09:36)
[2018-04-06] MEDS: FOLIC ACID/VITAMIN B COMP W-C TABLET GT SCH (09:36)
[2018-04-06] MEDS: FAMOTIDINE 20MG/2ML VIAL IV SCH (09:36)
[2018-04-06] MEDS: ACETAMINOPHEN 325MG TABLET PO PRN (10:19)
[2018-04-06 10:22] LABS: PLATELET ESTIMATE NORMAL
[2018-04-06] MEDS: SODIUM CHLORIDE 0.45% 1,000 ML IV SCH (17:19)
[2018-04-06] MEDS: ATORVASTATIN CALCIUM 20MG TABLET PO SCH (20:17)
[2018-04-06] MEDS: TEMAZEPAM 15MG CAPSULE PO PRN (23:09)
[2018-04-07] VITALS (10 sets, daily range): BP systolic 108–154; BP diastolic 49–76
[2018-04-07] MEDS: ALBUTEROL (0.083%) 2.5MG/3ML NEB HHN SCH ×6 (00:26→20:19)
[2018-04-07] MEDS: METOCLOPRAMIDE HCL 10MG/2ML VIAL IV SCH ×3 (05:31→17:40)
[2018-04-07] MEDS: DILTIAZEM HCL 90MG TABLET PO SCH ×3 (05:32→17:40)
[2018-04-07] MEDS: METOPROLOL TARTRATE 50MG TABLET PO SCH ×2 (08:54→19:25)
[2018-04-07] MEDS: FOLIC ACID/VITAMIN B COMP W-C TABLET GT SCH (08:54)
[2018-04-07] MEDS: FAMOTIDINE 20MG/2ML VIAL IV SCH (08:55)
[2018-04-07] MEDS: CHOLECALCIFEROL (D3) 1000 UNIT TABLET PO SCH (08:55)
[2018-04-07 12:33] LABS: HEMOGLOBIN. 8.5 g/dL (14.0-18.0); MEAN CORPUSCULAR HEMOGLOBIN 31.6 pg (28.0-32.0); MEAN CORPUSCULAR VOLUME 92.8 fL (80.0-94.0); MEAN PLATELET VOLUME 7.9 fl (7.4-10.4); PLATELET 355 x1000/uL (130-400); RED BLOOD CELL COUNT 2.69 mill/uL (4.7-6.1); RED CELL DISTRIBUTION WIDTH 15.7 % (11.6-14.6)
[2018-04-07 14:33] LABS: PLATELET ESTIMATE NORMAL
[2018-04-07] MEDS: TEMAZEPAM 15MG CAPSULE PO PRN (19:24)
[2018-04-07] MEDS: ATORVASTATIN CALCIUM 20MG TABLET PO SCH (19:24)
[2018-04-08] VITALS (10 sets, daily range): BP systolic 134–170; BP diastolic 57–73
[2018-04-08] MEDS: ALBUTEROL (0.083%) 2.5MG/3ML NEB HHN SCH ×4 (00:18→13:08)
[2018-04-08] MEDS: METOCLOPRAMIDE HCL 10MG/2ML VIAL IV SCH ×2 (08:36→13:30)
[2018-04-08] MEDS: METOPROLOL TARTRATE 50MG TABLET PO SCH (08:36)
[2018-04-08] MEDS: FAMOTIDINE 20MG/2ML VIAL IV SCH (08:36)
[2018-04-08] MEDS: FOLIC ACID/VITAMIN B COMP W-C TABLET GT SCH (08:37)
[2018-04-08] MEDS: DILTIAZEM HCL 90MG TABLET PO SCH ×2 (08:37→13:32)
[2018-04-08] MEDS: CHOLECALCIFEROL (D3) 1000 UNIT TABLET PO SCH (08:38)
[2018-04-08] MEDS ORDERED: PIPERACILLIN/TAZ 2.25G PREMIX 50 ML IV SCH (17:00)
== END 2018-04-08 17:00 | DRG 710 ==
LOC: ER 13:52 → 6EST 22:37 → EDBEDREQ 22:39 → EDBEDREQTM 22:39 → ENRESERV 03-28 07:45 → 5EST 03-28 13:00
PROVIDERS: ADMIT Internal Medicine; ATTEND Internal Medicine
PROC: 5A1D70Z Performance of Urinary Filtration, Intermittent, Less than 6 Hours Per Day (ICD-10-PCS; 2018-03-29)
PROC: 02HV33Z Insertion of Infusion Device into Superior Vena Cava, Percutaneous Approach (ICD-10-PCS; 2018-03-29)
PROC: B548ZZA Ultrasonography of Superior Vena Cava, Guidance (ICD-10-PCS; 2018-03-29)
PROC: 5A1D70Z Performance of Urinary Filtration, Intermittent, Less than 6 Hours Per Day (ICD-10-PCS; 2018-04-01)
PROC: 5A1D70Z Performance of Urinary Filtration, Intermittent, Less than 6 Hours Per Day (ICD-10-PCS; 2018-04-02)
PROC: 03WY0JZ Revision of Synthetic Substitute in Upper Artery, Open Approach (ICD-10-PCS; principal; 2018-04-03 12:30)
PROC: 5A1D70Z Performance of Urinary Filtration, Intermittent, Less than 6 Hours Per Day (ICD-10-PCS; 2018-04-04)
PROC: 5A1D70Z Performance of Urinary Filtration, Intermittent, Less than 6 Hours Per Day (ICD-10-PCS; 2018-04-06)
DX: A41.9 Sepsis, unspecified organism (principal); J96.01 Acute respiratory failure with hypoxia; J69.0 Pneumonitis due to inhalation of food and vomit; E43 Unspecified severe protein-calorie malnutrition; G93.41 Metabolic encephalopathy; I50.23 Acute on chronic systolic (congestive) heart failure; J84.9 Interstitial pulmonary disease, unspecified; I31.3 Pericardial effusion (noninflammatory); N17.9 Acute kidney failure, unspecified; N18.6 End stage renal disease; I47.1 Supraventricular tachycardia; E87.8 Other disorders of electrolyte and fluid balance, not elsewhere classified; I13.2 Hypertensive heart and chronic kidney disease with heart failure and with stage 5 chronic kidney disease, or end stage renal disease; K59.00 Constipation, unspecified; D63.1 Anemia in chronic kidney disease; E05.90 Thyrotoxicosis, unspecified without thyrotoxic crisis or storm; E26.9 Hyperaldosteronism, unspecified; E78.5 Hyperlipidemia, unspecified; E83.39 Other disorders of phosphorus metabolism; I42.9 Cardiomyopathy, unspecified; I48.92 Unspecified atrial flutter; I69.354 Hemiplegia and hemiparesis following cerebral infarction affecting left non-dominant side; K31.84 Gastroparesis; K44.9 Diaphragmatic hernia without obstruction or gangrene; N25.81 Secondary hyperparathyroidism of renal origin; R13.10 Dysphagia, unspecified; T82.898A Other specified complication of vascular prosthetic devices, implants and grafts, initial encounter; Y83.2 Surgical operation with anastomosis, bypass or graft as the cause of abnormal reaction of the patient, or of later complication, without mention of misadventure at the time of the procedure; K21.9 Gastro-esophageal reflux disease without esophagitis; L30.8 Other specified dermatitis; J44.9 Chronic obstructive pulmonary disease, unspecified; F41.9 Anxiety disorder, unspecified; I69.391 Dysphagia following cerebral infarction; Z93.1 Gastrostomy status; Z87.01 Personal history of pneumonia (recurrent); Z87.891 Personal history of nicotine dependence; Z99.2 Dependence on renal dialysis; Z79.899 Other long term (current) drug therapy; Z88.6 Allergy status to analgesic agent; Y92.89 Other specified places as the place of occurrence of the external cause
CPT/HCPCS: 36415; 36569; 36600; 70450; 70551; 71045; 74018; 74176; 74220; 76937; 78582; 80048; 80053; 80202; 82140; 82375; 82805; 82962; 83605; 83690; 83735; 83880; 84100; 84134; 84145; 84439; 84443; 84481; 84484; 85025; 85379; 85610; 87015; 87040; 87045; 87070; 87427; 87449; 87493; 89055; 92610; 93005; 93306; 93970; 94640; 94667; 97162; 97166; 97530; 99285; A4216; A6261; A9558; C1725; C1768; C9113; J1170; J1644; J1650; J2250; J2270; J2405; J2543; J2704; J2765; J3010; J3370; J3490; J7030; J7050; J7060; J7608; J7611; J7626

== ENCOUNTER 2018-05-11 11:30 | Inpatient (IN) | payer MEDICARE, MEDICAID ==
[~2018-05-11] VITALS: Ht 179.1 cm; Wt 60.9 kg
[2018-05-11] MEDS ORDERED: SODIUM CHLORIDE 0.9% 500 ML IV ONE (11:54)
[2018-05-11 12:44] LABS: BASOPHILS % 0.2 % (0.0-2.0); EOSINOPHILS % 1.3 % (0.0-5.0); HEMATOCRIT. 39.7 % (42.0-52.0); LYMPHOCYTES % 9.9 % (20.0-50.0); MEAN CORPUSCULAR HEMOGLOBIN 30.8 pg (28.0-32.0); MEAN CORPUSCULAR VOLUME 93.7 fL (80.0-94.0); MEAN PLATELET VOLUME 8.6 fl (7.4-10.4); MONOCYTES % 7.1 % (2.0-8.0); NEUTROPHILS % 81.5 % (40.0-76.0); PLATELET 286 x1000/uL (130-400); RED BLOOD CELL COUNT 4.24 mill/uL (4.7-6.1); RED CELL DISTRIBUTION WIDTH 17.4 % (11.6-14.6)
[2018-05-11 12:50] LABS: CHLORIDE 97 mEq/L (98-107); PROTHROMBIN TIME 10.5 sec (9.1-11.1)
[2018-05-11] MEDS ORDERED: VANCOMYCIN 1 G PREMIX 200 ML IV ONE (16:00)
[2018-05-11] MEDS ORDERED: PIPERACILLIN/TAZ 3.375G PREMIX 50 ML IV ONE (16:00)
[2018-05-11] MEDS ORDERED: DIPHENHYDRAMINE 50MG/ML VIAL IV ONE (16:15)
[2018-05-11] MEDS ORDERED: OXYCODONE HCL/ACETAMINOPHEN 5/325MG TABLET PO ONE (17:00)
[2018-05-11 22:00] VITALS: BP 153/74
[2018-05-11] MEDS ORDERED: ONDANSETRON HCL 4MG/2ML INJ IV PRN (22:15)
[2018-05-11] MEDS ORDERED: IPRATROPIUM/ALBUTEROL 0.5-3(2.5)MG/3ML NEB INH PRN (22:15)
[2018-05-11] MEDS ORDERED: ACETAMINOPHEN 650MG/20.3ML UDC GT PRN (22:15)
[2018-05-11] MEDS ORDERED: MAGNESIUM/ALUMINUM HYDROXIDE/SIMETHICONE 30ML UDC PO PRN (22:15)
[2018-05-11] MEDS ORDERED: DEXT 5%/0.45% NACL 1000ML 500 ML IV SCH (22:30)
[2018-05-11] MEDS: TEMAZEPAM 15MG CAPSULE PO PRN (23:27)
[2018-05-11] MEDS: HYDROCODONE/ACETAMINOPHEN 5/325MG TABLET PO PRN (23:31)
[2018-05-12] VITALS: BP 149/77
[2018-05-12 04:00] VITALS: BP 144/71
[2018-05-12] MEDS: SODIUM CHLORIDE 0.9% INJ 3ML FLUSH IVF SCH ×3 (05:24→21:35)
[2018-05-12 06:46] LABS: HEMATOCRIT. 35.9 % (42.0-52.0); HEMOGLOBIN. 11.6 g/dL (14.0-18.0); MEAN CORPUSCULAR HEMOGLOBIN 30.9 pg (28.0-32.0); MEAN CORPUSCULAR VOLUME 96.1 fL (80.0-94.0); RED BLOOD CELL COUNT 3.74 mill/uL (4.7-6.1); RED CELL DISTRIBUTION WIDTH 18.1 % (11.6-14.6)
[2018-05-12 08:00] VITALS: BP 154/79
[2018-05-12 08:03] LABS: PLATELET ESTIMATE NORMAL
[2018-05-12 08:04] LABS: PLATELET 217 x1000/uL (130-400)
[2018-05-12] MEDS: LOSARTAN POTASSIUM 100 MG TABLET PO SCH (08:48)
[2018-05-12] MEDS: CARVEDILOL 6.25 MG TABLET PO SCH ×2 (08:48→21:34)
[2018-05-12] MEDS: FAMOTIDINE 20MG TABLET GT SCH (08:48)
[2018-05-12] MEDS: HYDROCODONE/ACETAMINOPHEN 5/325MG TABLET PO PRN ×2 (08:57→16:25)
[2018-05-12] MEDS: DIPHENHYDRAMINE 50MG/ML VIAL IV PRN ×3 (08:59→21:33)
[2018-05-12 12:00] VITALS: BP 117/60
[2018-05-12 16:28] VITALS: BP 130/69
[2018-05-12 20:00] VITALS: BP 146/72
[2018-05-12] MEDS: ATORVASTATIN CALCIUM 10MG TABLET PO SCH (21:33)
[2018-05-12] MEDS: TEMAZEPAM 15MG CAPSULE PO PRN (21:34)
[2018-05-13] VITALS: BP 138/80
[2018-05-13 04:00] VITALS: BP 138/60
[2018-05-13] MEDS: SODIUM CHLORIDE 0.9% INJ 3ML FLUSH IVF SCH ×3 (05:24→22:12)
[2018-05-13 07:13] LABS: BASOPHILS % 0.7 % (0.0-2.0); EOSINOPHILS % 4.3 % (0.0-5.0); HEMATOCRIT. 33.2 % (42.0-52.0); HEMOGLOBIN. 11.1 g/dL (14.0-18.0); LYMPHOCYTES % 21.4 % (20.0-50.0); MEAN CORPUSCULAR VOLUME 93.1 fL (80.0-94.0); MEAN PLATELET VOLUME 8.7 fl (7.4-10.4); NEUTROPHILS % 65.6 % (40.0-76.0); PLATELET 244 x1000/uL (130-400); RED BLOOD CELL COUNT 3.56 mill/uL (4.7-6.1)
[2018-05-13 07:21] LABS: CHLORIDE 99 mEq/L (98-107)
[2018-05-13 07:53] VITALS: BP 150/68
[2018-05-13] MEDS: CARVEDILOL 6.25 MG TABLET PO SCH ×2 (08:04→22:10)
[2018-05-13] MEDS: LOSARTAN POTASSIUM 100 MG TABLET PO SCH (08:05)
[2018-05-13] MEDS: DIPHENHYDRAMINE 50MG/ML VIAL IV PRN ×2 (08:06→16:46)
[2018-05-13] MEDS: FAMOTIDINE 20MG TABLET GT SCH (08:06)
[2018-05-13] MEDS: HYDROCODONE/ACETAMINOPHEN 5/325MG TABLET PO PRN (08:06)
[2018-05-13 12:00] VITALS: BP 150/70
[2018-05-13] MEDS: CINACALCET HCL 90MG TABLET PO SCH (19:00)
[2018-05-13 20:00] VITALS: BP 149/64
[2018-05-13] MEDS: TEMAZEPAM 15MG CAPSULE PO PRN (22:10)
[2018-05-13] MEDS: ATORVASTATIN CALCIUM 10MG TABLET PO SCH (22:10)
[2018-05-14] VITALS: BP 128/62
[2018-05-14 04:00] VITALS: BP 123/70
[2018-05-14] MEDS: DIPHENHYDRAMINE 50MG/ML VIAL IV PRN (04:29)
[2018-05-14] MEDS: SODIUM CHLORIDE 0.9% INJ 3ML FLUSH IVF SCH ×2 (06:00→09:21)
[2018-05-14 08:00] VITALS: BP 145/69
[2018-05-14] MEDS ORDERED: CHOLECALCIFEROL (D3) 1000 UNIT TABLET PO SCH (09:00)
[2018-05-14] MEDS ORDERED: FOLIC ACID/VITAMIN B COMP W-C TABLET GT SCH (09:00)
[2018-05-14] MEDS: LOSARTAN POTASSIUM 100 MG TABLET PO SCH (09:20)
[2018-05-14] MEDS: CINACALCET HCL 90MG TABLET PO SCH (09:20)
[2018-05-14] MEDS: FAMOTIDINE 20MG TABLET GT SCH (09:20)
[2018-05-14] MEDS: CARVEDILOL 6.25 MG TABLET PO SCH (09:20)
[2018-05-14 12:00] VITALS: BP 143/72
[2018-05-14] MEDS ORDERED: BARIUM SULFATE 176 GM SUSP.RECON ONE (13:44)
[2018-05-14 16:00] VITALS: BP 142/66
[2018-05-14 16:28] VITALS: BP_DIAS 142
== END 2018-05-14 20:00 | DRG 207 ==
LOC: ER 11:34 → EDBEDREQSVC 17:02 → EDBEDREQ 17:02 → EDBEDREQTM 17:02 → 8WST 19:53 → ENRESERV 19:55
PROVIDERS: ADMIT Internal Medicine; ATTEND Internal Medicine
PROC: 0D20XUZ Change Feeding Device in Upper Intestinal Tract, External Approach (ICD-10-PCS; principal; 2018-05-13)
PROC: 5A1D70Z Performance of Urinary Filtration, Intermittent, Less than 6 Hours Per Day (ICD-10-PCS; 2018-05-13)
DX: I95.89 Other hypotension (principal); I13.2 Hypertensive heart and chronic kidney disease with heart failure and with stage 5 chronic kidney disease, or end stage renal disease; E46 Unspecified protein-calorie malnutrition; I42.9 Cardiomyopathy, unspecified; N18.6 End stage renal disease; I48.92 Unspecified atrial flutter; K94.23 Gastrostomy malfunction; N25.81 Secondary hyperparathyroidism of renal origin; R13.10 Dysphagia, unspecified; J44.9 Chronic obstructive pulmonary disease, unspecified; I50.32 Chronic diastolic (congestive) heart failure; E78.5 Hyperlipidemia, unspecified; N39.0 Urinary tract infection, site not specified; G47.00 Insomnia, unspecified; K30 Functional dyspepsia; F41.9 Anxiety disorder, unspecified; R74.8 Abnormal levels of other serum enzymes; E86.9 Volume depletion, unspecified; Y83.8 Other surgical procedures as the cause of abnormal reaction of the patient, or of later complication, without mention of misadventure at the time of the procedure; Y82.8 Other medical devices associated with adverse incidents; D63.8 Anemia in other chronic diseases classified elsewhere; K21.9 Gastro-esophageal reflux disease without esophagitis; Z79.899 Other long term (current) drug therapy; Z86.73 Personal history of transient ischemic attack (TIA), and cerebral infarction without residual deficits; Z99.2 Dependence on renal dialysis; Z88.6 Allergy status to analgesic agent; Y92.89 Other specified places as the place of occurrence of the external cause; Z68.1 Body mass index [BMI] 19.9 or less, adult
CPT/HCPCS: 36415; 71045; 74220; 76705; 80048; 80053; 83605; 83690; 84484; 85025; 85610; 87040; 92610; 93005; 96361; 96365; 96366; 96368; 99285; J1200; J2405; J2543; J3370; J7030; J7040

== ENCOUNTER 2018-05-25 12:53 | Emergency (ER) | payer MEDICARE, MEDICAID ==
[~2018-05-25] VITALS: Ht 180.3 cm; Wt 55.0 kg
[2018-05-25 14:34] LABS: BASOPHILS % 0.6 % (0.0-2.0); EOSINOPHILS % 2.9 % (0.0-5.0); HEMATOCRIT. 49.2 % (42.0-52.0); MEAN CORPUSCULAR HEMOGLOBIN 30.4 pg (28.0-32.0); MEAN CORPUSCULAR VOLUME 93.4 fL (80.0-94.0); MEAN PLATELET VOLUME 9.6 fl (7.4-10.4); MONOCYTES % 8.5 % (2.0-8.0); PLATELET 250 x1000/uL (130-400); RED BLOOD CELL COUNT 5.27 mill/uL (4.7-6.1); RED CELL DISTRIBUTION WIDTH 17.4 % (11.6-14.6)
[2018-05-25 15:50] LABS: INR 1.1; PARTIAL THROMBOPLASTIN TIME 28.2 sec (23.4-31.0); PROTHROMBIN TIME 10.9 sec (9.1-11.1)
[2018-05-25 16:04] LABS: CHLORIDE 95 mEq/L (98-107)
[2018-05-25] MEDS ORDERED: DIPHENHYDRAMINE 50MG/ML VIAL IV ONE (16:45)
[2018-05-25 19:38] VITALS: BP 132/75
== END 2018-05-25 19:50 ==
LOC: ER 12:56
DX: T82.49XA Other complication of vascular dialysis catheter, initial encounter (principal); N18.6 End stage renal disease; R03.0 Elevated blood-pressure reading, without diagnosis of hypertension; Y82.8 Other medical devices associated with adverse incidents; Y92.89 Other specified places as the place of occurrence of the external cause; Z99.2 Dependence on renal dialysis
CPT/HCPCS: 36415; 71045; 80053; 83605; 83690; 83880; 84484; 85025; 85610; 85730; 93005; 96374; 99285; J1200

== ENCOUNTER 2018-06-15 10:51 | Emergency (ER) | payer MEDICARE, MEDICAID ==
[~2018-06-15] VITALS: Ht 167.6 cm; Wt 55.0 kg
[2018-06-15 12:11] LABS: BASOPHILS % 1.1 % (0.0-2.0); EOSINOPHILS % 4.9 % (0.0-5.0); HEMATOCRIT. 50.9 % (42.0-52.0); HEMOGLOBIN. 16.5 g/dL (14.0-18.0); LYMPHOCYTES % 17.1 % (20.0-50.0); MEAN CORPUSCULAR HEMOGLOBIN 29.3 pg (28.0-32.0); MEAN CORPUSCULAR VOLUME 90.2 fL (80.0-94.0); MEAN PLATELET VOLUME 8.5 fl (7.4-10.4); MONOCYTES % 7.6 % (2.0-8.0); NEUTROPHILS % 69.3 % (40.0-76.0); PLATELET 218 x1000/uL (130-400); RED BLOOD CELL COUNT 5.64 mill/uL (4.7-6.1); RED CELL DISTRIBUTION WIDTH 16.7 % (11.6-14.6)
[2018-06-15 12:15] LABS: CHLORIDE 93 mEq/L (98-107)
[2018-06-15 15:03] VITALS: BP 104/62
== END 2018-06-15 15:04 | disposition home or self-care (01) ==
LOC: ER 12:01
DX: T82.868A Thrombosis due to vascular prosthetic devices, implants and grafts, initial encounter (principal); Y82.8 Other medical devices associated with adverse incidents; Y92.89 Other specified places as the place of occurrence of the external cause; I12.0 Hypertensive chronic kidney disease with stage 5 chronic kidney disease or end stage renal disease; N18.6 End stage renal disease; Z99.2 Dependence on renal dialysis
CPT/HCPCS: 36415; 71045; 93005; 99285

== ENCOUNTER → 2018-08-09 | Day surgery (SDC) | payer MEDICARE, MEDICAID ==
[~2018-08-09] VITALS: Ht 154.9 cm; Wt 48.5 kg
[~2018-08-09] MED LIST changes: +SODIUM CHLORIDE 0.9% 500 ML IV ONE
== END | disposition home or self-care (01) ==
LOC: OR 08:36
PROVIDERS: ATTEND Surgery Vascular Surgery
DX: N18.6 End stage renal disease (principal); I44.7 Left bundle-branch block, unspecified; Z53.8 Procedure and treatment not carried out for other reasons
CPT/HCPCS: 93005

== ENCOUNTER 2018-08-16 05:16 | Day surgery (SDC) | payer MEDICARE, MEDICAID ==
[~2018-08-16] VITALS: Ht 154.9 cm; Wt 48.5 kg
[~2018-08-16 05:16] MED LIST changes: -SODIUM CHLORIDE 0.9% 500 ML IV ONE
[2018-08-16 06:53] LABS: BASOPHILS % 0.4 % (0.0-2.0); HEMATOCRIT. 48.5 % (42.0-52.0); HEMOGLOBIN. 15.9 g/dL (14.0-18.0); LYMPHOCYTES % 12.8 % (20.0-50.0); MEAN CORPUSCULAR HEMOGLOBIN 27.8 pg (28.0-32.0); MEAN CORPUSCULAR VOLUME 85.1 fL (80.0-94.0); MEAN PLATELET VOLUME 9.8 fl (7.4-10.4); MONOCYTES % 8.7 % (2.0-8.0); NEUTROPHILS % 74.1 % (40.0-76.0); PLATELET 180 x1000/uL (130-400); RED CELL DISTRIBUTION WIDTH 17.6 % (11.6-14.6)
[2018-08-16] MEDS ORDERED: HYDROMORPHONE HCL/PF 2MG/ML CPJ IV PRN (10:15)
[2018-08-16] MEDS ORDERED: SODIUM CHLORIDE 0.9% INJ 3ML FLUSH IVF ONE (10:15)
[2018-08-16] MEDS ORDERED: HYDROCODONE/ACETAMINOPHEN 5/325MG TABLET PO PRN ×2 (10:15)
[2018-08-16] MEDS ORDERED: ONDANSETRON HCL 4MG/2ML INJ IV PRN (10:15)
[2018-08-16] MEDS ORDERED: HYDRALAZINE 20MG/ML VIAL IV PRN (10:15)
[2018-08-16] MEDS ORDERED: HEPARIN SODIUM 1,000 UNIT/1ML VIAL IV ONE ×2 (10:15→12:22)
[2018-08-16 11:02] VITALS: BP 98/59
[2018-08-16] MEDS ORDERED: HEPARIN SODIUM 1,000 UNIT/1ML VIAL IV NR (11:08)
[2018-08-16] MEDS ORDERED: BACITRACIN 15GM TUBE TOP ONE (12:22)
[2018-08-16] MEDS ORDERED: THROMBIN (BOVINE) 5000 UNITS/VIAL TOP ONE (12:22)
[2018-08-16] MEDS ORDERED: LIDOCAINE HCL 1% 20ML VIAL (Pyxis) INJ ONE (12:22)
[2018-08-16] MEDS ORDERED: PROPOFOL 200MG/20ML VIAL IV ONE (12:22)
[2018-08-16] MEDS ORDERED: BUPIVACAINE HCL/PF 0.25% (2.5MG/ML) 10ML ONE (12:22)
[2018-08-16] MEDS ORDERED: HEPARIN 5000 UNITS/ML VIAL ONE (12:22)
[2018-08-16] MEDS ORDERED: NORMAL SALINE 0.9% 10 ML SYR ONE (12:22)
[2018-08-16] MEDS ORDERED: GELATIN SPONGE,ABSORBABLE 12-7MM SPONGE ONE (12:22)
[2018-08-16] MEDS ORDERED: BACITRACIN 50,000 UNITS/VIAL ONE (12:22)
[2018-08-16] MEDS ORDERED: FENTANYL CITRATE/PF 50MCG/ML 2ML VIAL ONE (12:22)
[2018-08-16] MEDS ORDERED: HYDROMORPHONE HCL/PF 2MG/ML CPJ ONE (13:34)
== END 2018-08-16 11:30 | disposition home or self-care (01) ==
LOC: OR 05:16
PROVIDERS: ATTEND Surgery Vascular Surgery
DX: I13.2 Hypertensive heart and chronic kidney disease with heart failure and with stage 5 chronic kidney disease, or end stage renal disease (principal); N18.6 End stage renal disease; I50.9 Heart failure, unspecified; Z99.2 Dependence on renal dialysis; D64.9 Anemia, unspecified; Z86.73 Personal history of transient ischemic attack (TIA), and cerebral infarction without residual deficits; Z98.890 Other specified postprocedural states; Z93.1 Gastrostomy status
CPT/HCPCS: 36415; 36825; 80048; 85025; A4216; C1768; J1170; J1644; J3010; J3490; J2704; J7040; J7042

== ENCOUNTER 2019-03-26 15:46 | Inpatient (IN) | payer MEDICARE, MEDICAID ==
[~2019-03-26] VITALS: Ht 177.8 cm; Wt 45.4 kg
[2019-03-26] MEDS ORDERED: ALBUTEROL (0.5%) 2.5MG/0.5ML NEB HHN ONE (16:15)
[2019-03-26] MEDS ORDERED: IPRATROPIUM BROMIDE (0.02%) 0.5MG/2.5ML NEB HHN ONE (16:15)
[2019-03-26] MEDS ORDERED: METHYLPREDNISOLONE SOD SUCC 125 MG/2 ML VIAL IV ONE (16:15)
[2019-03-26 16:33] LABS: BASOPHILS % 0.2 % (0.0-2.0); EOSINOPHILS % 0.4 % (0.0-5.0); HEMATOCRIT. 41.1 % (42.0-52.0); HEMOGLOBIN. 13.6 g/dL (14.0-18.0); LYMPHOCYTES % 12.8 % (20.0-50.0); MEAN CORPUSCULAR HEMOGLOBIN 28.8 pg (28.0-32.0); MEAN CORPUSCULAR VOLUME 87.3 fL (80.0-94.0); MEAN PLATELET VOLUME 10.2 fl (7.4-10.4); MONOCYTES % 8.2 % (2.0-8.0); NEUTROPHILS % 78.4 % (40.0-76.0); PLATELET 224 x1000/uL (130-400); RED BLOOD CELL COUNT 4.71 mill/uL (4.7-6.1); RED CELL DISTRIBUTION WIDTH 18.2 % (11.6-14.6)
[2019-03-26 16:38] LABS: CHLORIDE 96 mEq/L (98-107)
[2019-03-26 17:28] LABS: BG BASE EXCESS 4.7 mmol/L (-2.0-2.0); BG BILEVEL POS AIRWAY PRESSURE 15/5; BG CARBOXYHEMOGLOBIN 0.3 % (0.5-1.5); BG DEOXYHEMOGLOBIN 0.5 % (0.0-5.0); BG FRACTION INSPIRED OXYGEN 50; BG HCO3 ACT 28.2 mmol/L (22.0-26.0); BG METHEMOGLOBIN 0.2 % (0.0-1.5); BG OXYGEN SATURATION 99.5 % (92.0-98.5); BG PH 7.488 (7.350-7.450); BG PO2 262.7 mmHg (75.0-100.0); BG SAMPLE SITE LEFT BRACHIAL; BG TOTAL HEMOGLOBIN 13.4 g/dL (12.0-18.0); BG VENT MODE MASK - BIPAP; BG VENT RATE 14 set
[2019-03-26] MEDS ORDERED: MORPHINE SULFATE 4 MG/ML CPJ (NOT FOR IM USE) IV ONE (18:00)
[2019-03-26] MEDS ORDERED: CLONIDINE 0.1MG TABLET PO PRN (18:15)
[2019-03-26] MEDS ORDERED: NITROGLYCERIN 0.4MG TABLET SL SL PRN (18:15)
[2019-03-26] MEDS ORDERED: LEVOFLOXACIN 500MG PREMIX 100 ML IV SCH (18:15)
[2019-03-26] MEDS ORDERED: DOCUSATE SODIUM 100MG CAPSULE PO PRN (18:15)
[2019-03-26] MEDS ORDERED: DIPHENHYDRAMINE 50MG/ML VIAL IV PRN (18:15)
[2019-03-26] MEDS ORDERED: ACETAMINOPHEN 325MG TABLET PO PRN (18:15)
[2019-03-26] MEDS ORDERED: IPRATROPIUM/ALBUTEROL 0.5-3(2.5)MG/3ML NEB INH PRN (18:15)
[2019-03-26] MEDS ORDERED: GUAIFENESIN 200MG/10ML SUGAR FREE UDC PO PRN (18:15)
[2019-03-26] MEDS ORDERED: MAGNESIUM/ALUMINUM HYDROXIDE/SIMETHICONE 30ML UDC PO PRN (18:15)
[2019-03-26] MEDS ORDERED: LORAZEPAM 0.5MG TABLET PO PRN (18:15)
[2019-03-26] MEDS: TRAMADOL 50MG TABLET PO PRN (20:30)
[2019-03-26] MEDS ORDERED: IOHEXOL-350 100 ML BOTTLE ONE (22:03)
[2019-03-26 23:10] LABS: CREATINE KINASE 96 IU/L (39-308)
[2019-03-26 23:12] LABS: CREATINE KINASE MB FRACTION < 1.0 ng/mL (0.5-3.6)
[2019-03-26] MEDS ORDERED: LEVOFLOXACIN 500MG PREMIX 100 ML IV NR (23:15)
[2019-03-27] VITALS (12 sets, daily range): BP systolic 104–126; BP diastolic 58–72
[2019-03-27] MEDS: ZOLPIDEM TARTRATE 5MG TABLET PO PRN ×2 (01:46→21:38)
[2019-03-27] MEDS: TRAMADOL 50MG TABLET PO PRN ×2 (01:46→14:19)
[2019-03-27] MEDS: METHYLPREDNISOLONE SOD SUCC 125 MG/2 ML VIAL IV SCH ×3 (02:17→17:27)
[2019-03-27] MEDS: DILTIAZEM HCL 60MG TABLET PO SCH ×4 (02:18→20:08)
[2019-03-27] MEDS: IPRATROPIUM/ALBUTEROL 0.5-3(2.5)MG/3ML NEB HHN SCH ×5 (04:30→20:13)
[2019-03-27] MEDS: HYDRALAZINE HCL 50MG TABLET PO SCH ×3 (06:00→21:39)
[2019-03-27] MEDS: ENOXAPARIN 30MG/0.3ML SYR SUBCUT SCH (08:14)
[2019-03-27] MEDS: GUAIFENESIN/DM 600MG/30MG ER TAB 12HR PO SCH ×2 (08:15→20:08)
[2019-03-27] MEDS: FOLIC ACID/VITAMIN B COMP W-C TABLET PO SCH (08:15)
[2019-03-27] MEDS: FAMOTIDINE 20MG TABLET PO SCH (08:15)
[2019-03-27] MEDS: SEVELAMER CARBONATE 800 MG TABLET PO SCH ×2 (08:16→13:26)
[2019-03-27] MEDS ORDERED: ASPIRIN 325MG EC TABLET PO SCH (09:00)
[2019-03-27] MEDS: ONDANSETRON HCL 4MG/2ML INJ IV PRN (09:14)
[2019-03-27 09:57] LABS: HEMOGLOBIN. 13.4 g/dL (14.0-18.0); MEAN CORPUSCULAR HEMOGLOBIN 29.1 pg (28.0-32.0); MEAN CORPUSCULAR VOLUME 87.2 fL (80.0-94.0); PLATELET 160 x1000/uL (130-400); RED BLOOD CELL COUNT 4.59 mill/uL (4.7-6.1); RED CELL DISTRIBUTION WIDTH 17.4 % (11.6-14.6)
[2019-03-27 10:14] LABS: CHLORIDE 93 mEq/L (98-107)
[2019-03-27 10:19] LABS: PHOSPHORUS 2.8 mg/dL (2.5-4.9)
[2019-03-27 10:22] LABS: CREATINE KINASE 99 IU/L (39-308)
[2019-03-27 10:24] LABS: CREATINE KINASE MB FRACTION < 1.0 ng/mL (0.5-3.6)
[2019-03-27 10:40] LABS: PLATELET ESTIMATE NORMAL
[2019-03-27] MEDS: POLYVINYL ALCOHOL OPHTH DROPS 15ML BOTHEYE SCH ×2 (13:26→17:05)
[2019-03-27] MEDS ORDERED: TERBUTALINE SULFATE 1MG/ML VIAL SUBCUT NR (15:30)
[2019-03-28] VITALS (13 sets, daily range): BP systolic 87–116; BP diastolic 48–62
[2019-03-28] MEDS: IPRATROPIUM/ALBUTEROL 0.5-3(2.5)MG/3ML NEB HHN SCH ×5 (00:42→20:47)
[2019-03-28] MEDS: METHYLPREDNISOLONE SOD SUCC 125 MG/2 ML VIAL IV SCH ×2 (02:12→10:50)
[2019-03-28] MEDS: DILTIAZEM HCL 60MG TABLET PO SCH ×4 (02:13→20:59)
[2019-03-28] MEDS: HYDRALAZINE HCL 50MG TABLET PO SCH ×3 (06:00→21:06)
[2019-03-28] MEDS: FOLIC ACID/VITAMIN B COMP W-C TABLET PO SCH (09:18)
[2019-03-28] MEDS: ONDANSETRON HCL 4MG/2ML INJ IV PRN (09:18)
[2019-03-28] MEDS: FAMOTIDINE 20MG TABLET PO SCH (09:18)
[2019-03-28] MEDS: ENOXAPARIN 30MG/0.3ML SYR SUBCUT SCH (09:18)
[2019-03-28] MEDS: GUAIFENESIN/DM 600MG/30MG ER TAB 12HR PO SCH ×2 (09:18→20:58)
[2019-03-28] MEDS: POLYVINYL ALCOHOL OPHTH DROPS 15ML BOTHEYE SCH ×3 (10:53→17:33)
[2019-03-28] MEDS: TRAMADOL 50MG TABLET PO PRN ×2 (10:58→21:00)
[2019-03-28 12:30] LABS: HEMATOCRIT. 36.4 % (42.0-52.0); HEMOGLOBIN. 12.3 g/dL (14.0-18.0); MEAN CORPUSCULAR HEMOGLOBIN 29.1 pg (28.0-32.0); MEAN CORPUSCULAR VOLUME 86.3 fL (80.0-94.0); MEAN PLATELET VOLUME 8.9 fl (7.4-10.4); PLATELET 158 x1000/uL (130-400); RED BLOOD CELL COUNT 4.22 mill/uL (4.7-6.1); RED CELL DISTRIBUTION WIDTH 17.7 % (11.6-14.6)
[2019-03-28 13:19] LABS: PLATELET ESTIMATE NORMAL
[2019-03-28] MEDS ORDERED: LEVOFLOXACIN 250MG PREMIX 50 ML IV SCH ×2 (14:00→23:00)
[2019-03-28] MEDS: METHYLPREDNISOLONE SOD SUCC 40 MG/ML VIAL IV SCH (17:33)
[2019-03-28] MEDS: ZOLPIDEM TARTRATE 5MG TABLET PO PRN (21:34)
[2019-03-29] VITALS (13 sets, daily range): BP systolic 90–131; BP diastolic 44–66
[2019-03-29] MEDS: IPRATROPIUM/ALBUTEROL 0.5-3(2.5)MG/3ML NEB HHN SCH ×6 (00:41→20:49)
[2019-03-29] MEDS: METHYLPREDNISOLONE SOD SUCC 40 MG/ML VIAL IV SCH ×3 (02:50→17:39)
[2019-03-29] MEDS: DILTIAZEM HCL 60MG TABLET PO SCH ×4 (02:50→23:59)
[2019-03-29] MEDS: HYDRALAZINE HCL 50MG TABLET PO SCH ×3 (06:00→22:00)
[2019-03-29] MEDS: ONDANSETRON HCL 4MG/2ML INJ IV PRN ×2 (08:38→20:18)
[2019-03-29] MEDS: FOLIC ACID/VITAMIN B COMP W-C TABLET PO SCH (08:41)
[2019-03-29] MEDS: TRAMADOL 50MG TABLET PO PRN ×2 (08:41→15:59)
[2019-03-29] MEDS: FAMOTIDINE 20MG TABLET PO SCH (08:41)
[2019-03-29] MEDS: GUAIFENESIN/DM 600MG/30MG ER TAB 12HR PO SCH ×2 (08:41→20:18)
[2019-03-29] MEDS: ENOXAPARIN 30MG/0.3ML SYR SUBCUT SCH (08:42)
[2019-03-29] MEDS: POLYVINYL ALCOHOL OPHTH DROPS 15ML BOTHEYE SCH ×3 (08:43→17:39)
[2019-03-29] MEDS: METOCLOPRAMIDE HCL 10MG/2ML VIAL IV SCH ×3 (12:06→23:59)
[2019-03-29] MEDS: SUCRALFATE 1G TABLET GT SCH ×3 (12:07→20:18)
[2019-03-29] MEDS: ZOLPIDEM TARTRATE 5MG TABLET PO PRN (20:18)
[2019-03-30] VITALS (14 sets, daily range): BP systolic 97–133; BP diastolic 55–86
[2019-03-30] MEDS: IPRATROPIUM/ALBUTEROL 0.5-3(2.5)MG/3ML NEB HHN SCH ×5 (00:41→16:43)
[2019-03-30] MEDS: DILTIAZEM HCL 60MG TABLET PO SCH ×3 (02:06→15:39)
[2019-03-30] MEDS: METHYLPREDNISOLONE SOD SUCC 40 MG/ML VIAL IV SCH ×3 (02:06→16:57)
[2019-03-30] MEDS: HYDRALAZINE HCL 50MG TABLET PO SCH ×2 (05:27→13:56)
[2019-03-30] MEDS: METOCLOPRAMIDE HCL 10MG/2ML VIAL IV SCH ×3 (05:27→16:57)
[2019-03-30] MEDS: TRAMADOL 50MG TABLET PO PRN (07:49)
[2019-03-30] MEDS: FOLIC ACID/VITAMIN B COMP W-C TABLET PO SCH (08:42)
[2019-03-30] MEDS: SUCRALFATE 1G TABLET GT SCH ×3 (08:42→16:57)
[2019-03-30] MEDS: GUAIFENESIN/DM 600MG/30MG ER TAB 12HR PO SCH (08:42)
[2019-03-30] MEDS: FAMOTIDINE 20MG TABLET PO SCH (08:42)
[2019-03-30] MEDS: ENOXAPARIN 30MG/0.3ML SYR SUBCUT SCH (08:43)
[2019-03-30] MEDS: POLYVINYL ALCOHOL OPHTH DROPS 15ML BOTHEYE SCH ×3 (08:46→16:57)
[2019-03-30] MEDS: ONDANSETRON HCL 4MG/2ML INJ IV PRN (13:18)
[2019-03-30] MEDS ORDERED: LEVOFLOXACIN 250MG TABLET PO SCH (14:00)
== END 2019-03-30 17:42 | DRG 133 ==
LOC: ER 15:46 → 5EST 17:44 → EDBEDREQ 17:54 → EDBEDREQTM 17:54 → ENRESERV 20:30 → CANRESERV 20:30 → EDBEDREQSVC 20:49 → ENRESERV 23:38
PROVIDERS: ADMIT Internal Medicine; ATTEND Internal Medicine
PROC: 5A09457 Assistance with Respiratory Ventilation, 24-96 Consecutive Hours, Continuous Positive Airway Pressure (ICD-10-PCS; 2019-03-26)
PROC: 5A1D70Z Performance of Urinary Filtration, Intermittent, Less than 6 Hours Per Day (ICD-10-PCS; principal; 2019-03-27)
PROC: 5A1D70Z Performance of Urinary Filtration, Intermittent, Less than 6 Hours Per Day (ICD-10-PCS; 2019-03-28)
PROC: 0DH63UZ Insertion of Feeding Device into Stomach, Percutaneous Approach (ICD-10-PCS; 2019-03-29)
PROC: 0DP6XUZ Removal of Feeding Device from Stomach, External Approach (ICD-10-PCS; 2019-03-29)
DX: J96.21 Acute and chronic respiratory failure with hypoxia (principal); I13.2 Hypertensive heart and chronic kidney disease with heart failure and with stage 5 chronic kidney disease, or end stage renal disease; E11.22 Type 2 diabetes mellitus with diabetic chronic kidney disease; I31.3 Pericardial effusion (noninflammatory); I69.354 Hemiplegia and hemiparesis following cerebral infarction affecting left non-dominant side; R13.10 Dysphagia, unspecified; E87.1 Hypo-osmolality and hyponatremia; I42.9 Cardiomyopathy, unspecified; K94.23 Gastrostomy malfunction; J44.1 Chronic obstructive pulmonary disease with (acute) exacerbation; N18.6 End stage renal disease; I50.42 Chronic combined systolic (congestive) and diastolic (congestive) heart failure; D63.8 Anemia in other chronic diseases classified elsewhere; E78.5 Hyperlipidemia, unspecified; K21.9 Gastro-esophageal reflux disease without esophagitis; F14.10 Cocaine abuse, uncomplicated; M85.80 Other specified disorders of bone density and structure, unspecified site; N25.81 Secondary hyperparathyroidism of renal origin; Z87.01 Personal history of pneumonia (recurrent); Z99.2 Dependence on renal dialysis; Z88.6 Allergy status to analgesic agent; Z79.899 Other long term (current) drug therapy; Z79.82 Long term (current) use of aspirin; Z87.81 Personal history of (healed) traumatic fracture
CPT/HCPCS: 36415; 36600; 70490; 71045; 71275; 80048; 80061; 82375; 82550; 82553; 82805; 82962; 83036; 83880; 84100; 84484; 93005; 93306; 93970; 94640; 94660; 96365; 96372; 96375; 99291; J1650; J1956; J2270; J2405; J2765; J2920; J2930; J3105; J7611; J7620; Q9967

== ENCOUNTER 2019-04-07 07:42 | Emergency (ER) | payer MEDICARE, MEDICAID ==
[~2019-04-07] VITALS: Ht 177.8 cm; Wt 59.0 kg
[2019-04-07] MEDS ORDERED: TRANEXAMIC ACID 1,000 MG/10 ML IV ONE (09:00)
[2019-04-07 09:42] LABS: HEMATOCRIT. 32.3 % (42.0-52.0); HEMOGLOBIN. 10.8 g/dL (14.0-18.0); MEAN CORPUSCULAR HEMOGLOBIN 28.4 pg (28.0-32.0); MEAN CORPUSCULAR VOLUME 85.2 fL (80.0-94.0); MEAN PLATELET VOLUME 8.8 fl (7.4-10.4); PLATELET 147 x1000/uL (130-400); RED BLOOD CELL COUNT 3.79 mill/uL (4.7-6.1); RED CELL DISTRIBUTION WIDTH 17.3 % (11.6-14.6)
[2019-04-07 09:44] LABS: CHLORIDE 101 mEq/L (98-107)
[2019-04-07 09:45] LABS: PROTHROMBIN TIME 10.7 sec (9.6-11.0)
[2019-04-07 10:41] LABS: PLATELET ESTIMATE NORMAL
[2019-04-07] MEDS ORDERED: HYDROCODONE/ACETAMINOPHEN 5/325MG TABLET PO ONE (12:00)
[2019-04-07 14:57] VITALS: BP 114/59
== END 2019-04-07 15:03 | disposition home or self-care (01) ==
LOC: ER 07:42
DX: T82.838A Hemorrhage due to vascular prosthetic devices, implants and grafts, initial encounter (principal); I13.11 Hypertensive heart and chronic kidney disease without heart failure, with stage 5 chronic kidney disease, or end stage renal disease; E11.22 Type 2 diabetes mellitus with diabetic chronic kidney disease; N18.6 End stage renal disease; I25.10 Atherosclerotic heart disease of native coronary artery without angina pectoris; I50.9 Heart failure, unspecified; K21.9 Gastro-esophageal reflux disease without esophagitis; E78.00 Pure hypercholesterolemia, unspecified; Z93.1 Gastrostomy status; Z98.890 Other specified postprocedural states; F03.90 Unspecified dementia, unspecified severity, without behavioral disturbance, psychotic disturbance, mood disturbance, and anxiety; Z99.2 Dependence on renal dialysis; Z88.6 Allergy status to analgesic agent; Z79.899 Other long term (current) drug therapy; Y82.8 Other medical devices associated with adverse incidents; Y92.89 Other specified places as the place of occurrence of the external cause
CPT/HCPCS: 36415; 71045; 96374; 99284

== ENCOUNTER 2019-04-12 10:02 | Emergency (ER) | payer MEDICARE, MEDICAID ==
[~2019-04-12] VITALS: Ht 180.3 cm; Wt 48.0 kg
[2019-04-12] MEDS ORDERED: ACETAMINOPHEN 650MG/20.3ML UDC GT ONE (11:00)
[2019-04-12 13:00] VITALS: BP 122/68
== END 2019-04-12 13:08 | disposition home or self-care (01) ==
LOC: ER 10:09
DX: T82.838A Hemorrhage due to vascular prosthetic devices, implants and grafts, initial encounter (principal); Y82.8 Other medical devices associated with adverse incidents; Y92.89 Other specified places as the place of occurrence of the external cause; I13.2 Hypertensive heart and chronic kidney disease with heart failure and with stage 5 chronic kidney disease, or end stage renal disease; E11.22 Type 2 diabetes mellitus with diabetic chronic kidney disease; N18.6 End stage renal disease; I50.9 Heart failure, unspecified; Z99.2 Dependence on renal dialysis; Z79.4 Long term (current) use of insulin; Z79.84 Long term (current) use of oral hypoglycemic drugs
CPT/HCPCS: 99283

== ENCOUNTER 2019-05-08 10:40 | Emergency (ER) | payer MEDICARE, MEDICAID ==
[~2019-05-08] VITALS: Ht 172.7 cm; Wt 61.0 kg
[2019-05-08] MEDS ORDERED: MORPHINE SULFATE 4 MG/ML CPJ (NOT FOR IM USE) IV ONE (11:30)
[2019-05-08 12:04] LABS: HEMATOCRIT. 26.1 % (42.0-52.0); HEMOGLOBIN. 8.5 g/dL (14.0-18.0); MEAN CORPUSCULAR HEMOGLOBIN 26.9 pg (28.0-32.0); MEAN CORPUSCULAR VOLUME 82.5 fL (80.0-94.0); MEAN PLATELET VOLUME 8.2 fl (7.4-10.4); PLATELET 467 x1000/uL (130-400); RED BLOOD CELL COUNT 3.17 mill/uL (4.7-6.1); RED CELL DISTRIBUTION WIDTH 16.2 % (11.6-14.6)
[2019-05-08 12:11] LABS: CHLORIDE 96 mEq/L (98-107)
[2019-05-08 12:49] LABS: PLATELET ESTIMATE INCREASED
[2019-05-08] MEDS ORDERED: ACETAMINOPHEN WITH CODEINE 300/30MG TABLET PO ONE ×2 (13:30→20:00)
[2019-05-08] MEDS ORDERED: ACETAMINOPHEN WITH CODEINE 120-12MG/5ML UDC GT ONE (20:15)
[2019-05-08 20:45] VITALS: BP 140/74
== END 2019-05-08 20:53 | disposition home or self-care (01) ==
LOC: ER 10:40
DX: M25.512 Pain in left shoulder (principal); M25.511 Pain in right shoulder; I12.0 Hypertensive chronic kidney disease with stage 5 chronic kidney disease or end stage renal disease; N18.6 End stage renal disease; Z99.2 Dependence on renal dialysis
CPT/HCPCS: 36415; 71045; 80053; 85025; 96374; 99284; J2270

== ENCOUNTER 2019-05-20 10:17 | Inpatient (IN) | payer MEDICARE, MEDICAID ==
[~2019-05-20] VITALS: Ht 180.3 cm; Wt 60.3 kg
[2019-05-20 11:34] LABS: HEMATOCRIT. 23.8 % (42.0-52.0); HEMOGLOBIN. 7.7 g/dL (14.0-18.0); MEAN CORPUSCULAR VOLUME 83.3 fL (80.0-94.0); MEAN PLATELET VOLUME 8.5 fl (7.4-10.4); PLATELET 380 x1000/uL (130-400); RED BLOOD CELL COUNT 2.85 mill/uL (4.7-6.1); RED CELL DISTRIBUTION WIDTH 18.2 % (11.6-14.6)
[2019-05-20 11:43] LABS: INR 1.1; PROTHROMBIN TIME 11.2 sec (9.6-11.0)
[2019-05-20 11:44] LABS: CHLORIDE 94 mEq/L (98-107)
[2019-05-20 12:13] LABS: PLATELET ESTIMATE NORMAL
[2019-05-20] MEDS ORDERED: CLINDAMYCIN 600 MG in DEXTROSE 5% WATER 50 ML IV ONE (13:00)
[2019-05-20] MEDS ORDERED: CLINDAMYCIN 600MG PREMIX 50 ML IV NR (13:15)
[2019-05-20 16:00] VITALS: BP 129/59
[2019-05-20] MEDS ORDERED: DOCUSATE SODIUM 100MG CAPSULE PO PRN (16:30)
[2019-05-20] MEDS ORDERED: MAGNESIUM/ALUMINUM HYDROXIDE/SIMETHICONE 30ML UDC PO PRN (16:30)
[2019-05-20] MEDS ORDERED: CLONIDINE 0.1MG TABLET PO PRN (16:30)
[2019-05-20] MEDS ORDERED: IPRATROPIUM/ALBUTEROL 0.5-3(2.5)MG/3ML NEB NEB PRN (16:30)
[2019-05-20] MEDS ORDERED: GUAIFENESIN 200MG/10ML SUGAR FREE UDC PO PRN (16:30)
[2019-05-20] MEDS ORDERED: ONDANSETRON HCL 4MG/2ML INJ IV PRN (16:30)
[2019-05-20] MEDS: AMLODIPINE 10MG TABLET PO SCH (17:30)
[2019-05-20 20:00] VITALS: BP 135/66
[2019-05-20] MEDS: EPOETIN ALFA 10000UNITS/ML VIAL SUBCUT SCH (22:15)
[2019-05-21] VITALS (12 sets, daily range): BP systolic 104–130; BP diastolic 53–70
[2019-05-21 07:30] LABS: CHLORIDE 107 mEq/L (98-107)
[2019-05-21 08:58] LABS: MEAN CORPUSCULAR HEMOGLOBIN 27.1 pg (28.0-32.0); MEAN CORPUSCULAR VOLUME 84.6 fL (80.0-94.0); MEAN PLATELET VOLUME 8.4 fl (7.4-10.4); PLATELET 282 x1000/uL (130-400); RED CELL DISTRIBUTION WIDTH 18.6 % (11.6-14.6)
[2019-05-21] MEDS: AMLODIPINE 10MG TABLET PO SCH (09:17)
[2019-05-21] MEDS: ACETAMINOPHEN 325MG TABLET PO PRN (09:18)
[2019-05-21 09:21] LABS: HEMATOCRIT. 20.3 % (42.0-52.0); HEMOGLOBIN. 6.5 g/dL (14.0-18.0)
[2019-05-21 12:41] LABS: PLATELET ESTIMATE NORMAL
[2019-05-21] MEDS: MORPHINE SULFATE 2 MG/ML CPJ (NOT FOR IM USE) IV PRN (20:43)
[2019-05-21] MEDS: DIPHENHYDRAMINE 50MG/ML VIAL IV PRN (20:56)
[2019-05-22] VITALS (10 sets, daily range): BP systolic 63–135; BP diastolic 52–74
[2019-05-22] MEDS: DIPHENHYDRAMINE 50MG/ML VIAL IV PRN ×2 (00:38→21:52)
[2019-05-22 06:26] LABS: HEMATOCRIT. 26.5 % (42.0-52.0); HEMOGLOBIN. 8.6 g/dL (14.0-18.0); MEAN CORPUSCULAR HEMOGLOBIN 27.1 pg (28.0-32.0); MEAN CORPUSCULAR VOLUME 83.2 fL (80.0-94.0); MEAN PLATELET VOLUME 8.3 fl (7.4-10.4); PLATELET 308 x1000/uL (130-400); RED BLOOD CELL COUNT 3.18 mill/uL (4.7-6.1); RED CELL DISTRIBUTION WIDTH 18.6 % (11.6-14.6)
[2019-05-22 06:32] LABS: CHLORIDE 109 mEq/L (98-107)
[2019-05-22] MEDS: AMLODIPINE 10MG TABLET PO SCH (09:00)
[2019-05-22 09:11] LABS: HEMATOCRIT. 21.7 % (42.0-52.0); HEMOGLOBIN. 7.1 g/dL (14.0-18.0); MEAN CORPUSCULAR HEMOGLOBIN 27.1 pg (28.0-32.0); MEAN CORPUSCULAR VOLUME 82.9 fL (80.0-94.0); MEAN PLATELET VOLUME 8.2 fl (7.4-10.4); PLATELET 273 x1000/uL (130-400); RED BLOOD CELL COUNT 2.62 mill/uL (4.7-6.1); RED CELL DISTRIBUTION WIDTH 18.4 % (11.6-14.6)
[2019-05-22 12:24] LABS: PLATELET ESTIMATE NORMAL
[2019-05-22 13:01] LABS: PLATELET ESTIMATE NORMAL
[2019-05-22 15:09] LABS: INR 1.2; PARTIAL THROMBOPLASTIN TIME 29.7 sec (23.4-31.0); PROTHROMBIN TIME 12.2 sec (9.6-11.0)
[2019-05-22] MEDS: EPOETIN ALFA 10000UNITS/ML VIAL SUBCUT SCH (21:44)
[2019-05-23] VITALS (25 sets, daily range): BP systolic 75–152; BP diastolic 51–97
[2019-05-23 06:32] LABS: BASOPHILS % 0.3 % (0.0-2.0); EOSINOPHILS % 0.6 % (0.0-5.0); HEMATOCRIT. 22.9 % (42.0-52.0); HEMOGLOBIN. 7.5 g/dL (14.0-18.0); LYMPHOCYTES % 7.3 % (20.0-50.0); MEAN CORPUSCULAR VOLUME 82.5 fL (80.0-94.0); MEAN PLATELET VOLUME 8.3 fl (7.4-10.4); MONOCYTES % 12.2 % (2.0-8.0); NEUTROPHILS % 79.6 % (40.0-76.0); PLATELET 233 x1000/uL (130-400); RED BLOOD CELL COUNT 2.77 mill/uL (4.7-6.1); RED CELL DISTRIBUTION WIDTH 17.6 % (11.6-14.6)
[2019-05-23 07:05] LABS: CHLORIDE 111 mEq/L (98-107)
[2019-05-23] MEDS: AMLODIPINE 10MG TABLET PO SCH (09:11)
[2019-05-23] MEDS ORDERED: SODIUM CHLORIDE 0.9% 500 ML IV ONE ×2 (12:20→12:30)
[2019-05-23] MEDS ORDERED: HEPARIN SODIUM 1,000 UNIT/1ML VIAL IV ONE (14:59)
[2019-05-23] MEDS ORDERED: LIDOCAINE HCL 1% 20ML VIAL (Pyxis) INJ ONE (14:59)
[2019-05-23] MEDS ORDERED: BUPIVACAINE HCL/PF 0.5% (5MG/ML) 10ML ONE (14:59)
[2019-05-23] MEDS ORDERED: BACITRACIN 50,000 UNITS/VIAL ONE (15:00)
[2019-05-23] MEDS ORDERED: NORMAL SALINE 0.9% 10 ML SYR ONE (15:00)
[2019-05-23] MEDS ORDERED: THROMBIN (BOVINE) 5000 UNITS/VIAL TOP ONE (15:00)
[2019-05-23] MEDS ORDERED: PROPOFOL 200MG/20ML VIAL IV ONE (15:36)
[2019-05-23] MEDS ORDERED: ROCURONIUM BROMIDE 10MG/ML VIAL 5ML IV ONE (15:36)
[2019-05-23] MEDS ORDERED: FENTANYL CITRATE/PF 50MCG/ML 2ML VIAL ONE (15:36)
[2019-05-23] MEDS ORDERED: NEOSTIGMINE METHYLSULFATE 1MG/ML 10 ML VIAL ONE (15:36)
[2019-05-23] MEDS ORDERED: PHENYLEPHRINE HCL 10 MG/ML 1ML (IV VIAL) IV ONE (15:37)
[2019-05-23] MEDS ORDERED: GLYCOPYRROLATE 0.2 MG/ML 2ML VIAL ONE (15:37)
[2019-05-23] MEDS ORDERED: MIDAZOLAM HCL 2 MG/2 ML VIAL ONE ×2 (15:37→15:41)
[2019-05-23] MEDS ORDERED: CEFAZOLIN SODIUM 1000MG/VIAL ONE (15:37)
[2019-05-23] MEDS ORDERED: SODIUM CHLORIDE 0.9% 10ML VIAL ONE (15:37)
[2019-05-23] MEDS ORDERED: SUCCINYLCHOLINE CHLORIDE 200MG/10ML IV ONE (15:37)
[2019-05-23] MEDS ORDERED: ONDANSETRON HCL 4MG/2ML INJ ONE (15:37)
[2019-05-23] MEDS ORDERED: EPHEDRINE SULFATE 50MG/ML VIAL ONE (15:37)
[2019-05-23] MEDS ORDERED: LIDOCAINE HCL/PF 1% 10 MG/ML 5ML VIAL ONE (15:37)
[2019-05-23] MEDS ORDERED: METOCLOPRAMIDE HCL 10MG/2ML VIAL ONE (15:37)
[2019-05-23] MEDS ORDERED: ETOMIDATE 2MG/ML 10ML VIAL IV ONE (15:42)
[2019-05-23] MEDS ORDERED: HYDROMORPHONE HCL/PF 2MG/ML CPJ IV PRN (17:00)
[2019-05-23] MEDS ORDERED: MORPHINE SULFATE 2 MG/ML CPJ (NOT FOR IM USE) IV PRN (17:00)
[2019-05-23] MEDS ORDERED: MEPERIDINE HCL/PF 25MG/ML CPJ IV PRN (17:00)
[2019-05-23] MEDS ORDERED: SODIUM CHLORIDE 0.9% 1,000 ML IV ONE (17:00)
[2019-05-23] MEDS ORDERED: ONDANSETRON HCL 4MG/2ML INJ IV PRN (17:00)
[2019-05-23 18:08] LABS: BG BASE EXCESS 3.8 mmol/L (-2.0-2.0); BG DEOXYHEMOGLOBIN 0.9 % (0.0-5.0); BG FRACTION INSPIRED OXYGEN 50; BG METHEMOGLOBIN 0.2 % (0.0-1.5); BG OXYGEN SATURATION 99.1 % (92.0-98.5); BG OXYHEMOGLOBIN 98.9 % (94.0-97.0); BG PCO2 27.2 mmHg (35.0-45.0); BG PH 7.582 (7.350-7.450); BG PO2 227.1 mmHg (75.0-100.0); BG SAMPLE SITE RIGHT FEMORAL; BG TIDAL VOLUME(mL) 500 mL; BG VENT MODE VENT - A/C; BG VENT RATE 12 set
[2019-05-23] MEDS ORDERED: IPRATROPIUM/ALBUTEROL 0.5-3(2.5)MG/3ML NEB HHN PRN (19:00)
[2019-05-23] MEDS ORDERED: DILTIAZEM HCL 5MG/ML 5ML VIAL IV PRN (19:00)
[2019-05-23] MEDS: PROPOFOL 10MG/ML 100ML 100 ML IV PRN (19:23)
[2019-05-23] MEDS: DEXTROSE 5% WATER 1,000 ML IV SCH (19:26)
[2019-05-23 21:39] LABS: HEMATOCRIT. 31.4 % (42.0-52.0); HEMOGLOBIN. 10.3 g/dL (14.0-18.0); MEAN CORPUSCULAR HEMOGLOBIN 28.9 pg (28.0-32.0); MEAN CORPUSCULAR VOLUME 88.1 fL (80.0-94.0); MEAN PLATELET VOLUME 8.8 fl (7.4-10.4); PLATELET 98 x1000/uL (130-400); RED BLOOD CELL COUNT 3.57 mill/uL (4.7-6.1); RED CELL DISTRIBUTION WIDTH 16.1 % (11.6-14.6)
[2019-05-23 21:43] LABS: CHLORIDE 110 mEq/L (98-107)
[2019-05-23 22:26] LABS: PLATELET ESTIMATE DECREASED
[2019-05-23] MEDS: MORPHINE SULFATE 2 MG/ML CPJ (NOT FOR IM USE) IV PRN (23:41)
[2019-05-24] VITALS (89 sets, daily range): BP systolic 78–219; BP diastolic 44–172
[2019-05-24] MEDS: IPRATROPIUM/ALBUTEROL 0.5-3(2.5)MG/3ML NEB HHN SCH ×4 (02:00→20:13)
[2019-05-24] MEDS: PROPOFOL 10MG/ML 100ML 100 ML IV PRN (05:44)
[2019-05-24 08:01] LABS: BG BASE EXCESS 1.6 mmol/L (-2.0-2.0); BG CARBOXYHEMOGLOBIN 0.7 % (0.5-1.5); BG HCO3 ACT 23.3 mmol/L (22.0-26.0); BG METHEMOGLOBIN 0.3 % (0.0-1.5); BG PCO2 26.8 mmHg (35.0-45.0); BG PH 7.558 (7.350-7.450); BG PO2 160.7 mmHg (75.0-100.0); BG SAMPLE SITE LEFT BRACHIAL; BG TIDAL VOLUME(mL) 500 mL; BG TOTAL HEMOGLOBIN 9.3 g/dL (12.0-18.0); BG VENT MODE VENT - A/C; BG VENT RATE 12 set
[2019-05-24] MEDS: AMLODIPINE 10MG TABLET PO SCH (09:04)
[2019-05-24] MEDS: MORPHINE SULFATE 2 MG/ML CPJ (NOT FOR IM USE) IV PRN ×2 (09:05→20:49)
[2019-05-24] MEDS ORDERED: DEXTROSE 50% WATER 50ML SYRINGE IV NR ×2 (10:30)
[2019-05-24] MEDS ORDERED: DEXTROSE 50% WATER 50ML SYRINGE IV ONE (10:38)
[2019-05-24] MEDS ORDERED: DEXTROSE 50% WATER 50ML SYRINGE IV PRN ×2 (10:45)
[2019-05-24] MEDS ORDERED: LIDOCAINE HCL 1% 20ML VIAL (Pyxis) INJ ONE (11:15)
[2019-05-24] MEDS: BLOOD SUGAR DIAGNOSTIC STRIP TEST SCH ×2 (11:18→18:00)
[2019-05-24] MEDS: DEXTROSE 5% WATER 1,000 ML IV SCH (15:59)
[2019-05-25] VITALS (58 sets, daily range): BP systolic 99–148; BP diastolic 46–86
[2019-05-25] MEDS: DIPHENHYDRAMINE 50MG/ML VIAL IV PRN ×2 (00:27→22:17)
[2019-05-25] MEDS: BLOOD SUGAR DIAGNOSTIC STRIP TEST SCH ×4 (00:40→17:22)
[2019-05-25] MEDS: IPRATROPIUM/ALBUTEROL 0.5-3(2.5)MG/3ML NEB HHN SCH ×4 (02:01→20:27)
[2019-05-25] MEDS: DEXTROSE 5% WATER 1,000 ML IV SCH (08:23)
[2019-05-25] MEDS: AMLODIPINE 10MG TABLET PO SCH (08:23)
[2019-05-25] MEDS: ACETYLCYSTEINE 100MG/ML 10% VIAL 4ML INH SCH (13:29)
[2019-05-25 14:51] LABS: BASOPHILS % 0.3 % (0.0-2.0); EOSINOPHILS % 0.7 % (0.0-5.0); HEMATOCRIT. 22.7 % (42.0-52.0); HEMOGLOBIN. 7.6 g/dL (14.0-18.0); LYMPHOCYTES % 8.8 % (20.0-50.0); MEAN CORPUSCULAR HEMOGLOBIN 28.7 pg (28.0-32.0); MEAN PLATELET VOLUME 8.4 fl (7.4-10.4); MONOCYTES % 8.1 % (2.0-8.0); NEUTROPHILS % 82.1 % (40.0-76.0); PLATELET 156 x1000/uL (130-400); RED BLOOD CELL COUNT 2.64 mill/uL (4.7-6.1); RED CELL DISTRIBUTION WIDTH 16.7 % (11.6-14.6)
[2019-05-25] MEDS: MORPHINE SULFATE 2 MG/ML CPJ (NOT FOR IM USE) IV PRN (20:21)
[2019-05-25] MEDS: ACETAMINOPHEN 325MG TABLET PO PRN (20:23)
[2019-05-26] VITALS: BP 124/32
[2019-05-26] MEDS: BLOOD SUGAR DIAGNOSTIC STRIP TEST SCH ×3 (00:51→12:51)
[2019-05-26] MEDS: IPRATROPIUM/ALBUTEROL 0.5-3(2.5)MG/3ML NEB HHN SCH ×2 (00:59→07:28)
[2019-05-26] MEDS: ACETYLCYSTEINE 100MG/ML 10% VIAL 4ML INH SCH ×2 (00:59→07:27)
[2019-05-26 04:00] VITALS: BP 103/56
[2019-05-26] MEDS: DEXTROSE 5% WATER 1,000 ML IV SCH (06:11)
[2019-05-26 07:12] LABS: HEMATOCRIT. 26.1 % (42.0-52.0); HEMOGLOBIN. 8.7 g/dL (14.0-18.0); MEAN CORPUSCULAR HEMOGLOBIN 29.1 pg (28.0-32.0); MEAN CORPUSCULAR VOLUME 87.3 fL (80.0-94.0); PLATELET 166 x1000/uL (130-400); RED BLOOD CELL COUNT 2.99 mill/uL (4.7-6.1); RED CELL DISTRIBUTION WIDTH 17.3 % (11.6-14.6)
[2019-05-26 07:54] LABS: PHOSPHORUS 2.7 mg/dL (2.5-4.9)
[2019-05-26 08:00] VITALS: BP 119/54
[2019-05-26] MEDS: AMLODIPINE 10MG TABLET PO SCH (10:12)
[2019-05-26 11:19] VITALS: BP 119/54
[2019-05-26 12:00] VITALS: BP 128/61
[2019-05-26 13:17] LABS: PLATELET ESTIMATE NORMAL
== END 2019-05-26 13:31 | DRG 182 ==
LOC: ER 10:17 → 7WST 12:49 → ENRESERV 15:47 → 7WST 05-23 08:23 → 5EST 05-23 13:44 → MICUSO 05-23 18:20 → 7WST 05-25 15:53
PROVIDERS: ADMIT Hospitalist; ATTEND Hospitalist
PROC: 5A1D70Z Performance of Urinary Filtration, Intermittent, Less than 6 Hours Per Day (ICD-10-PCS; 2019-05-20)
PROC: 5A1D70Z Performance of Urinary Filtration, Intermittent, Less than 6 Hours Per Day (ICD-10-PCS; 2019-05-21)
PROC: 30233N1 Transfusion of Nonautologous Red Blood Cells into Peripheral Vein, Percutaneous Approach (ICD-10-PCS; 2019-05-21)
PROC: 05LY0ZZ Occlusion of Upper Vein, Open Approach (ICD-10-PCS; principal; 2019-05-23)
PROC: 5A1935Z Respiratory Ventilation, Less than 24 Consecutive Hours (ICD-10-PCS; 2019-05-23)
PROC: 05PY0DZ Removal of Intraluminal Device from Upper Vein, Open Approach (ICD-10-PCS; 2019-05-23)
PROC: 0BH17EZ Insertion of Endotracheal Airway into Trachea, Via Natural or Artificial Opening (ICD-10-PCS; 2019-05-23)
PROC: 06HM33Z Insertion of Infusion Device into Right Femoral Vein, Percutaneous Approach (ICD-10-PCS; 2019-05-24)
PROC: B54BZZA Ultrasonography of Right Lower Extremity Veins, Guidance (ICD-10-PCS; 2019-05-24)
PROC: 5A1D70Z Performance of Urinary Filtration, Intermittent, Less than 6 Hours Per Day (ICD-10-PCS; 2019-05-24)
DX: T82.838A Hemorrhage due to vascular prosthetic devices, implants and grafts, initial encounter (principal); J95.821 Acute postprocedural respiratory failure; I13.2 Hypertensive heart and chronic kidney disease with heart failure and with stage 5 chronic kidney disease, or end stage renal disease; L89.153 Pressure ulcer of sacral region, stage 3; E46 Unspecified protein-calorie malnutrition; I48.92 Unspecified atrial flutter; I69.351 Hemiplegia and hemiparesis following cerebral infarction affecting right dominant side; D62 Acute posthemorrhagic anemia; N18.6 End stage renal disease; I50.9 Heart failure, unspecified; R13.10 Dysphagia, unspecified; J44.9 Chronic obstructive pulmonary disease, unspecified; B19.20 Unspecified viral hepatitis C without hepatic coma; R47.1 Dysarthria and anarthria; K31.89 Other diseases of stomach and duodenum; Y84.1 Kidney dialysis as the cause of abnormal reaction of the patient, or of later complication, without mention of misadventure at the time of the procedure; E16.2 Hypoglycemia, unspecified; R91.8 Other nonspecific abnormal finding of lung field; E78.5 Hyperlipidemia, unspecified; G89.4 Chronic pain syndrome; Z87.81 Personal history of (healed) traumatic fracture; Z99.2 Dependence on renal dialysis; Z68.1 Body mass index [BMI] 19.9 or less, adult; Z93.1 Gastrostomy status; Z99.3 Dependence on wheelchair; Z79.899 Other long term (current) drug therapy; Z88.6 Allergy status to analgesic agent; Z82.49 Family history of ischemic heart disease and other diseases of the circulatory system; Z78.1 Physical restraint status; Y92.89 Other specified places as the place of occurrence of the external cause
CPT/HCPCS: 36415; 36556; 36600; 71045; 76937; 80048; 82375; 82805; 82962; 83735; 84100; 84134; 84478; 86850; 86900; 86920; 88300; 93005; 94002; 94640; 99285; C1752; J0330; J0690; J0885; J1200; J1644; J2250; J2270; J2370; J2405; J2704; J2710; J2765; J3010; J3490; J7040; J7042; J7060; J7070; J7608; J7620; P9016; P9021

== ENCOUNTER 2021-01-18 12:42 | Inpatient (IN) | payer MEDICARE, MEDICAID ==
[~2021-01-18] VITALS: Ht 180.3 cm; Wt 80.3 kg
[~2021-01-18 12:42] MED LIST changes: -ACET-2853 PO; +ACET650T37 PO; +SIMV-43 PO; -SIMV20TA6 PO
[2021-01-18] MEDS ORDERED: ONDANSETRON HCL 4MG/2ML INJ IV STA (14:16)
[2021-01-18] MEDS ORDERED: MORPHINE SULFATE 4 MG/ML CPJ (NOT FOR IM USE) IV STA (14:16)
[2021-01-18 15:16] LABS: BASOPHILS % 0.6 % (0.0-2.0); EOSINOPHILS % 1.6 % (0.0-5.0); HEMATOCRIT. 43.6 % (42.0-52.0); HEMOGLOBIN. 14.7 g/dL (14.0-18.0); LYMPHOCYTES % 12.6 % (20.0-50.0); MEAN PLATELET VOLUME 8.4 fl (7.4-10.4); MONOCYTES % 10.9 % (2.0-8.0); NEUTROPHILS % 74.3 % (40.0-76.0); PLATELET 217 x1000/uL (130-400); RED BLOOD CELL COUNT 5.07 mill/uL (4.7-6.1); RED CELL DISTRIBUTION WIDTH 16.7 % (11.6-14.6)
[2021-01-18 15:21] LABS: CHLORIDE 94 mEq/L (98-107)
[2021-01-18 15:26] LABS: PROTHROMBIN TIME 11.2 sec (9.6-11.0)
[2021-01-18] MEDS ORDERED: GUAIFENESIN 200MG/10ML SUGAR FREE UDC PO PRN (17:15)
[2021-01-18] MEDS ORDERED: IPRATROPIUM/ALBUTEROL 0.5-3(2.5)MG/3ML NEB NEB PRN (17:15)
[2021-01-18] MEDS ORDERED: DIPHENHYDRAMINE 50MG/ML VIAL IV PRN (17:15)
[2021-01-18] MEDS ORDERED: NITROGLYCERIN 0.4MG TABLET SL SL PRN (17:15)
[2021-01-18] MEDS ORDERED: CLONIDINE 0.1MG TABLET PO PRN (17:15)
[2021-01-18] MEDS ORDERED: ACETAMINOPHEN 325MG TABLET PO PRN ×2 (17:15)
[2021-01-18] MEDS ORDERED: DOCUSATE SODIUM 100MG CAPSULE PO PRN (17:15)
[2021-01-18] MEDS ORDERED: MAGNESIUM/ALUMINUM HYDROXIDE/SIMETHICONE 30ML UDC PO PRN (17:15)
[2021-01-18] MEDS ORDERED: POTASSIUM CHLORIDE 20MEQ TABLET SR PO NR (17:30)
[2021-01-18] MEDS: ENOXAPARIN 30MG/0.3ML SYR SUBCUT SCH (18:55)
[2021-01-18 20:42] VITALS: BP 137/79
[2021-01-18 21:00] VITALS: BP 137/79
[2021-01-18] MEDS: LACTULOSE 20G/30ML UDC PO SCH (21:48)
[2021-01-18] MEDS: ASCORBIC ACID 500 MG TABLET PO SCH (21:48)
[2021-01-18] MEDS: FAMOTIDINE 20MG TABLET PO SCH (21:48)
[2021-01-18] MEDS: TRAMADOL 50MG TABLET PO PRN (21:49)
[2021-01-19 00:51] VITALS: BP 110/79
[2021-01-19] MEDS: ONDANSETRON HCL 4MG/2ML INJ IV PRN ×2 (01:34→07:32)
[2021-01-19 02:56] LABS: HEPATITIS B SURFACE ANTIGEN NEGATIVE
[2021-01-19 03:24] LABS: HEPATITIS A AB IGM NEGATIVE (NEGATIVE)
[2021-01-19 05:17] VITALS: BP 120/73
[2021-01-19] MEDS: LACTULOSE 20G/30ML UDC PO SCH ×4 (05:34→21:36)
[2021-01-19 08:00] VITALS: BP 121/75
[2021-01-19] MEDS: ASCORBIC ACID 500 MG TABLET PO SCH ×2 (09:01→21:16)
[2021-01-19] MEDS: CHOLECALCIFEROL (D3) 1000 UNIT TABLET PO SCH (09:02)
[2021-01-19] MEDS: AMLODIPINE 10MG TABLET PO SCH (09:02)
[2021-01-19] MEDS: FAMOTIDINE 20MG TABLET PO SCH ×2 (09:02→21:16)
[2021-01-19] MEDS: ZINC SULFATE 220 MG ( 50 ) CAPSULE PO SCH (09:02)
[2021-01-19 12:00] VITALS: BP 109/53
[2021-01-19 16:00] VITALS: BP 105/59
[2021-01-19] MEDS ORDERED: HEPARIN SODIUM 1,000 UNIT/1ML VIAL IV NR (16:43)
[2021-01-19] MEDS: ENOXAPARIN 30MG/0.3ML SYR SUBCUT SCH (18:39)
[2021-01-19 20:00] VITALS: BP 133/72
[2021-01-19] MEDS: ZOLPIDEM TARTRATE 5MG TABLET PO PRN (21:16)
[2021-01-19] MEDS: TRAMADOL 50MG TABLET PO PRN (21:29)
[2021-01-20] VITALS: BP 88/50
[2021-01-20 04:00] VITALS: BP 90/47
[2021-01-20 06:21] LABS: HEMATOCRIT. 41.6 % (42.0-52.0); HEMOGLOBIN. 13.9 g/dL (14.0-18.0); MEAN CORPUSCULAR HEMOGLOBIN 29.1 pg (28.0-32.0); MEAN PLATELET VOLUME 8.6 fl (7.4-10.4); PLATELET 203 x1000/uL (130-400); RED BLOOD CELL COUNT 4.78 mill/uL (4.7-6.1)
[2021-01-20 06:24] LABS: CHLORIDE 102 mEq/L (98-107)
[2021-01-20 06:31] LABS: AMYLASE 135 IU/L (25-115)
[2021-01-20 06:34] LABS: PHOSPHORUS 4.2 mg/dL (2.5-4.9)
[2021-01-20 08:00] VITALS: BP 109/59
[2021-01-20] MEDS: CHOLECALCIFEROL (D3) 1000 UNIT TABLET PO SCH (08:58)
[2021-01-20] MEDS: FAMOTIDINE 20MG TABLET PO SCH ×2 (08:58→20:31)
[2021-01-20] MEDS: ZINC SULFATE 220 MG ( 50 ) CAPSULE PO SCH (08:58)
[2021-01-20] MEDS: TRAMADOL 50MG TABLET PO PRN ×3 (08:59→20:31)
[2021-01-20] MEDS: ASCORBIC ACID 500 MG TABLET PO SCH ×2 (08:59→20:31)
[2021-01-20] MEDS: AMLODIPINE 10MG TABLET PO SCH (09:00)
[2021-01-20 12:00] VITALS: BP 113/60
[2021-01-20 12:03] LABS: PLATELET ESTIMATE NORMAL
[2021-01-20] MEDS: LACTULOSE 20G/30ML UDC PO SCH ×2 (13:59→20:32)
[2021-01-20 16:00] VITALS: BP 133/73
[2021-01-20] MEDS: ENOXAPARIN 30MG/0.3ML SYR SUBCUT SCH (17:21)
[2021-01-20 20:00] VITALS: BP 131/75
[2021-01-20] MEDS: ZOLPIDEM TARTRATE 5MG TABLET PO PRN (20:31)
[2021-01-21] VITALS: BP 133/74
[2021-01-21 04:00] VITALS: BP 105/66
[2021-01-21] MEDS: LACTULOSE 20G/30ML UDC PO SCH ×3 (06:00→21:11)
[2021-01-21 08:00] VITALS: BP 128/79
[2021-01-21] MEDS ORDERED: METOCLOPRAMIDE 10MG/10 ML UDC PO PRN (09:45)
[2021-01-21] MEDS: FAMOTIDINE 20MG TABLET PO SCH ×2 (10:11→20:26)
[2021-01-21] MEDS: ASCORBIC ACID 500 MG TABLET PO SCH ×2 (10:11→20:26)
[2021-01-21] MEDS: ZINC SULFATE 220 MG ( 50 ) CAPSULE PO SCH (10:12)
[2021-01-21] MEDS: AMLODIPINE 10MG TABLET PO SCH (10:12)
[2021-01-21] MEDS: CHOLECALCIFEROL (D3) 1000 UNIT TABLET PO SCH (10:14)
[2021-01-21] MEDS: TRAMADOL 50MG TABLET PO PRN ×2 (11:22→20:29)
[2021-01-21 12:00] VITALS: BP 116/68
[2021-01-21 16:00] VITALS: BP 125/69
[2021-01-21] MEDS: ENOXAPARIN 30MG/0.3ML SYR SUBCUT SCH (18:08)
[2021-01-21 20:00] VITALS: BP 117/66
[2021-01-21] MEDS: ZOLPIDEM TARTRATE 5MG TABLET PO PRN (20:29)
[2021-01-22] VITALS: BP 120/71
[2021-01-22] MEDS: ONDANSETRON HCL 4MG/2ML INJ IV PRN ×2 (00:14→08:26)
[2021-01-22 04:00] VITALS: BP 136/82
[2021-01-22] MEDS: LACTULOSE 20G/30ML UDC PO SCH ×3 (06:00→21:57)
[2021-01-22 08:00] VITALS: BP 130/72
[2021-01-22] MEDS: ZINC SULFATE 220 MG ( 50 ) CAPSULE PO SCH (08:25)
[2021-01-22] MEDS: CHOLECALCIFEROL (D3) 1000 UNIT TABLET PO SCH (08:26)
[2021-01-22] MEDS: AMLODIPINE 10MG TABLET PO SCH (08:26)
[2021-01-22] MEDS: FAMOTIDINE 20MG TABLET PO SCH ×2 (08:26→21:05)
[2021-01-22] MEDS: ASCORBIC ACID 500 MG TABLET PO SCH ×2 (08:26→21:05)
[2021-01-22 12:00] VITALS: BP 109/68
[2021-01-22] MEDS: TRAMADOL 50MG TABLET PO PRN (15:02)
[2021-01-22 16:00] VITALS: BP 125/68
[2021-01-22] MEDS: ENOXAPARIN 30MG/0.3ML SYR SUBCUT SCH (18:09)
[2021-01-22 19:03] LABS: HEPATITIS B SURFACE ANTIGEN NEGATIVE
[2021-01-22 19:33] LABS: HEPATITIS A AB IGM NEGATIVE (NEGATIVE)
[2021-01-22 20:00] VITALS: BP 142/79
[2021-01-22] MEDS: ZOLPIDEM TARTRATE 5MG TABLET PO PRN (21:05)
[2021-01-23] VITALS: BP 115/62
[2021-01-23 04:00] VITALS: BP 126/73
[2021-01-23] MEDS: LACTULOSE 20G/30ML UDC PO SCH ×2 (06:07→18:13)
[2021-01-23] MEDS: ONDANSETRON HCL 4MG/2ML INJ IV PRN (06:59)
[2021-01-23 08:00] VITALS: BP_SYST 122; BP_SYST 132; BP_DIAS 69; BP_DIAS 75
[2021-01-23] MEDS: FAMOTIDINE 20MG TABLET PO SCH (09:10)
[2021-01-23] MEDS: AMLODIPINE 10MG TABLET PO SCH (09:10)
[2021-01-23] MEDS: ASCORBIC ACID 500 MG TABLET PO SCH (09:10)
[2021-01-23] MEDS: CHOLECALCIFEROL (D3) 1000 UNIT TABLET PO SCH (09:11)
[2021-01-23] MEDS: ZINC SULFATE 220 MG ( 50 ) CAPSULE PO SCH (09:11)
[2021-01-23] MEDS: TRAMADOL 50MG TABLET PO PRN (09:17)
[2021-01-23 12:00] VITALS: BP 129/78
[2021-01-23 15:42] VITALS: BP 111/62
[2021-01-23 17:16] VITALS: BP 116/64
[2021-01-23] MEDS: ENOXAPARIN 30MG/0.3ML SYR SUBCUT SCH (18:13)
== END 2021-01-23 19:52 | DRG 282 ==
LOC: ER 12:50 → 8WST 16:57 → ENRESERV 19:51
PROVIDERS: ADMIT Internal Medicine; ATTEND Internal Medicine
PROC: 5A1D70Z Performance of Urinary Filtration, Intermittent, Less than 6 Hours Per Day (ICD-10-PCS; principal; 2021-01-19)
PROC: 5A1D70Z Performance of Urinary Filtration, Intermittent, Less than 6 Hours Per Day (ICD-10-PCS; 2021-01-23)
DX: K85.90 Acute pancreatitis without necrosis or infection, unspecified (principal); E46 Unspecified protein-calorie malnutrition; I12.0 Hypertensive chronic kidney disease with stage 5 chronic kidney disease or end stage renal disease; N18.6 End stage renal disease; I48.92 Unspecified atrial flutter; Z93.1 Gastrostomy status; D64.9 Anemia, unspecified; F03.90 Unspecified dementia, unspecified severity, without behavioral disturbance, psychotic disturbance, mood disturbance, and anxiety; E87.1 Hypo-osmolality and hyponatremia; E87.6 Hypokalemia; B19.20 Unspecified viral hepatitis C without hepatic coma; K21.9 Gastro-esophageal reflux disease without esophagitis; F10.139 Alcohol abuse with withdrawal, unspecified; Y90.9 Presence of alcohol in blood, level not specified; J44.9 Chronic obstructive pulmonary disease, unspecified; E78.5 Hyperlipidemia, unspecified; G89.4 Chronic pain syndrome; Z86.73 Personal history of transient ischemic attack (TIA), and cerebral infarction without residual deficits; Z99.2 Dependence on renal dialysis; Z88.6 Allergy status to analgesic agent; Z79.1 Long term (current) use of non-steroidal anti-inflammatories (NSAID); Z79.891 Long term (current) use of opiate analgesic; Z79.899 Other long term (current) drug therapy; Z68.24 Body mass index [BMI] 24.0-24.9, adult
CPT/HCPCS: 36415; 71045; 74176; 76705; 80053; 80061; 82150; 83036; 83735; 84100; 84484; 85025; 86705; 86709; 86803; 87340; 93005; 93970; 99285; C1893; J1200; J1644; J1650; J2270; J2405; J8597

== ENCOUNTER 2021-05-07 12:34 | Emergency (ER) | payer MEDICARE, MEDICAID ==
[~2021-05-07] VITALS: Ht 172.7 cm; Wt 73.0 kg
[2021-05-07] MEDS ORDERED: SODIUM CHLORIDE 0.9% 500 ML IV ONE (13:30)
[2021-05-07] MEDS ORDERED: MORPHINE SULFATE 2 MG/ML CPJ (NOT FOR IM USE) IV ONE ×2 (14:00→19:45)
[2021-05-07 14:46] LABS: BASOPHILS % 0.4 % (0.0-2.0); EOSINOPHILS % 2.4 % (0.0-5.0); HEMATOCRIT. 43.8 % (42.0-52.0); HEMOGLOBIN. 14.5 g/dL (14.0-18.0); LYMPHOCYTES % 7.7 % (20.0-50.0); MEAN CORPUSCULAR HEMOGLOBIN 30.8 pg (28.0-32.0); MEAN CORPUSCULAR VOLUME 93.3 fL (80.0-94.0); NEUTROPHILS % 81.5 % (40.0-76.0); PLATELET 227 x1000/uL (130-400); RED CELL DISTRIBUTION WIDTH 17.3 % (11.6-14.6)
[2021-05-07 15:56] LABS: CHLORIDE 107 mEq/L (98-107)
[2021-05-07] MEDS ORDERED: SIMETHICONE 80MG TABLET CHEW PO NR (17:00)
[2021-05-07] MEDS ORDERED: DIPHENHYDRAMINE 25MG CAPSULE PO ONE (17:45)
[2021-05-07 19:35] VITALS: BP 151/61
== END 2021-05-07 20:30 | disposition home or self-care (01) ==
LOC: ER 12:34
DX: R10.32 Left lower quadrant pain (principal); I13.2 Hypertensive heart and chronic kidney disease with heart failure and with stage 5 chronic kidney disease, or end stage renal disease; I50.9 Heart failure, unspecified; E78.00 Pure hypercholesterolemia, unspecified; N18.6 End stage renal disease; J44.9 Chronic obstructive pulmonary disease, unspecified; Z99.2 Dependence on renal dialysis; Z86.73 Personal history of transient ischemic attack (TIA), and cerebral infarction without residual deficits; Z86.19 Personal history of other infectious and parasitic diseases
CPT/HCPCS: 36415; 74176; 80053; 83690; 84484; 85025; 93005; 96374; 96376; 99285; J2270; J7030; Q0163

== ENCOUNTER 2021-06-25 11:43 | Inpatient (IN) | payer MEDICARE, MEDICAID ==
[~2021-06-25] VITALS: Ht 167.6 cm; Wt 64.4 kg
[2021-06-25 13:11] LABS: BASOPHILS % 0.4 % (0.0-2.0); EOSINOPHILS % 2.1 % (0.0-5.0); HEMATOCRIT. 42.6 % (42.0-52.0); HEMOGLOBIN. 13.9 g/dL (14.0-18.0); LYMPHOCYTES % 9.5 % (20.0-50.0); MEAN CORPUSCULAR HEMOGLOBIN 30.9 pg (28.0-32.0); MEAN CORPUSCULAR VOLUME 94.6 fL (80.0-94.0); MEAN PLATELET VOLUME 9.1 fl (7.4-10.4); MONOCYTES % 11.8 % (2.0-8.0); NEUTROPHILS % 76.2 % (40.0-76.0); PLATELET 276 x1000/uL (130-400); RED CELL DISTRIBUTION WIDTH 17.2 % (11.6-14.6)
[2021-06-25 13:18] LABS: CHLORIDE 96 mEq/L (98-107)
[2021-06-25] MEDS ORDERED: DEXTROSE 50% WATER 50ML SYRINGE IV ONE (15:15)
[2021-06-25] MEDS ORDERED: IPRATROPIUM/ALBUTEROL 0.5-3(2.5)MG/3ML NEB NEB PRN (18:00)
[2021-06-25] MEDS ORDERED: DOCUSATE SODIUM 100MG CAPSULE PO PRN (18:00)
[2021-06-25] MEDS ORDERED: ONDANSETRON HCL 4MG/2ML INJ IV PRN (18:00)
[2021-06-25] MEDS ORDERED: GUAIFENESIN 200MG/10ML SUGAR FREE UDC PO PRN (18:00)
[2021-06-25] MEDS ORDERED: CLONIDINE 0.1MG TABLET PO PRN (18:00)
[2021-06-25] MEDS ORDERED: NALOXONE HCL 0.4MG/ML VIAL IV PRN (18:15)
[2021-06-25] MEDS: MORPHINE SULFATE 2 MG/ML CPJ (NOT FOR IM USE) IV PRN (18:28)
[2021-06-25] MEDS: HEPARIN 5000 UNITS/ML VIAL SUBCUT SCH (21:00)
[2021-06-26] VITALS (9 sets, daily range): BP systolic 82–149; BP diastolic 46–89
[2021-06-26 00:33] LABS: CREATINE KINASE MB FRACTION 4.9 ng/mL (0.5-3.6)
[2021-06-26 07:44] LABS: HEMATOCRIT. 38.9 % (42.0-52.0); HEMOGLOBIN. 13.1 g/dL (14.0-18.0); MEAN CORPUSCULAR HEMOGLOBIN 31.5 pg (28.0-32.0); MEAN CORPUSCULAR VOLUME 93.4 fL (80.0-94.0); MEAN PLATELET VOLUME 8.8 fl (7.4-10.4); PLATELET 273 x1000/uL (130-400); RED BLOOD CELL COUNT 4.17 mill/uL (4.7-6.1); RED CELL DISTRIBUTION WIDTH 16.8 % (11.6-14.6)
[2021-06-26 08:14] LABS: CREATINE KINASE MB FRACTION 4.1 ng/mL (0.5-3.6)
[2021-06-26] MEDS ORDERED: SODIUM CHLORIDE 0.9% 1000ML BAG (SEPSIS BOLUS) IV ONE (08:15)
[2021-06-26] MEDS ORDERED: SODIUM CHLORIDE 0.9% 250 ML IV NR (09:00)
[2021-06-26] MEDS ORDERED: SODIUM CHLORIDE 0.9% 1000ML BAG (SEPSIS BOLUS) IV NR (09:00)
[2021-06-26] MEDS ORDERED: BISACODYL 10MG SUPP PR PRN (13:15)
[2021-06-26 13:26] LABS: PLATELET ESTIMATE NORMAL
[2021-06-26] MEDS ORDERED: IOHEXOL-350 100 ML BOTTLE ONE (15:22)
[2021-06-26] MEDS: HEPARIN 5000 UNITS/ML VIAL SUBCUT SCH ×2 (16:12→22:06)
[2021-06-26] MEDS: HYDROCODONE/ACETAMINOPHEN 5/325MG TABLET PO PRN (16:14)
[2021-06-26] MEDS: ATORVASTATIN CALCIUM 20MG TABLET PO SCH (22:06)
[2021-06-27] VITALS: BP 101/66
[2021-06-27 04:00] VITALS: BP 103/59
[2021-06-27 06:22] LABS: BASOPHILS % 0.3 % (0.0-2.0); EOSINOPHILS % 2.8 % (0.0-5.0); HEMATOCRIT. 35.4 % (42.0-52.0); HEMOGLOBIN. 11.4 g/dL (14.0-18.0); LYMPHOCYTES % 8.7 % (20.0-50.0); MEAN CORPUSCULAR HEMOGLOBIN 30.1 pg (28.0-32.0); MEAN CORPUSCULAR VOLUME 93.2 fL (80.0-94.0); MEAN PLATELET VOLUME 9.1 fl (7.4-10.4); MONOCYTES % 9.6 % (2.0-8.0); NEUTROPHILS % 78.6 % (40.0-76.0); PLATELET 257 x1000/uL (130-400); RED CELL DISTRIBUTION WIDTH 17.4 % (11.6-14.6)
[2021-06-27 08:00] VITALS: BP 105/48
[2021-06-27] MEDS: FOLIC ACID/VITAMIN B COMP W-C TABLET PO SCH (09:18)
[2021-06-27] MEDS: CHOLECALCIFEROL (D3) 1000 UNIT TABLET PO SCH (09:18)
[2021-06-27] MEDS: CINACALCET HCL 60MG TABLET PO SCH (09:18)
[2021-06-27] MEDS: HEPARIN 5000 UNITS/ML VIAL SUBCUT SCH ×2 (09:19→22:02)
[2021-06-27] MEDS: HYDROCODONE/ACETAMINOPHEN 5/325MG TABLET PO PRN ×2 (09:34→18:18)
[2021-06-27 12:00] VITALS: BP 117/68
[2021-06-27 16:00] VITALS: BP 114/57
[2021-06-27] MEDS: ONDANSETRON HCL 4MG/2ML INJ IV PRN (18:18)
[2021-06-27 19:41] LABS: HEPATITIS B SURFACE ANTIGEN NEGATIVE
[2021-06-27 20:00] VITALS: BP 111/66
[2021-06-27] MEDS: CARVEDILOL 3.125 MG TABLET PO SCH (21:00)
[2021-06-27] MEDS: ATORVASTATIN CALCIUM 20MG TABLET PO SCH (22:01)
[2021-06-27] MEDS: MORPHINE SULFATE 2 MG/ML CPJ (NOT FOR IM USE) IV PRN (22:23)
[2021-06-28] VITALS: BP 94/50
[2021-06-28 04:00] VITALS: BP 101/65
[2021-06-28 07:51] LABS: BASOPHILS % 0.3 % (0.0-2.0); EOSINOPHILS % 3.5 % (0.0-5.0); HEMATOCRIT. 35.5 % (42.0-52.0); HEMOGLOBIN. 11.6 g/dL (14.0-18.0); LYMPHOCYTES % 10.1 % (20.0-50.0); MEAN CORPUSCULAR HEMOGLOBIN 30.7 pg (28.0-32.0); MEAN CORPUSCULAR VOLUME 93.7 fL (80.0-94.0); MEAN PLATELET VOLUME 8.6 fl (7.4-10.4); MONOCYTES % 9.1 % (2.0-8.0); PLATELET 262 x1000/uL (130-400); RED BLOOD CELL COUNT 3.79 mill/uL (4.7-6.1); RED CELL DISTRIBUTION WIDTH 17.5 % (11.6-14.6)
[2021-06-28 08:00] VITALS: BP 90/52
[2021-06-28] MEDS: CARVEDILOL 3.125 MG TABLET PO SCH ×2 (09:00→21:00)
[2021-06-28] MEDS: FOLIC ACID/VITAMIN B COMP W-C TABLET PO SCH (09:20)
[2021-06-28] MEDS: ACETAMINOPHEN 325MG TABLET PO PRN (09:20)
[2021-06-28] MEDS: CHOLECALCIFEROL (D3) 1000 UNIT TABLET PO SCH (09:21)
[2021-06-28] MEDS: CINACALCET HCL 60MG TABLET PO SCH (09:21)
[2021-06-28] MEDS: HEPARIN 5000 UNITS/ML VIAL SUBCUT SCH ×2 (09:24→21:18)
[2021-06-28 12:00] VITALS: BP 117/65
[2021-06-28] MEDS: POLYETHYLENE GLYCOL 3350 (17GM) 1 DOSE PACK GT SCH (12:42)
[2021-06-28] MEDS: DOCUSATE SODIUM SUGAR FREE 100MG/10ML UDC GT SCH ×2 (12:45→16:21)
[2021-06-28] MEDS: ONDANSETRON HCL 4MG/2ML INJ IV PRN ×2 (14:54→23:53)
[2021-06-28 16:00] VITALS: BP 115/77
[2021-06-28] MEDS ORDERED: COR3 PO (16:42)
[2021-06-28] MEDS: MORPHINE SULFATE 2 MG/ML CPJ (NOT FOR IM USE) IV PRN ×2 (16:43→23:23)
[2021-06-28 20:00] VITALS: BP 103/36
[2021-06-28] MEDS: ATORVASTATIN CALCIUM 20MG TABLET PO SCH (21:18)
[2021-06-29] VITALS: BP 126/37
[2021-06-29 04:00] VITALS: BP 102/53
[2021-06-29 08:00] VITALS: BP 91/58
[2021-06-29] MEDS: DOCUSATE SODIUM SUGAR FREE 100MG/10ML UDC GT SCH ×2 (08:46→18:01)
[2021-06-29] MEDS: FOLIC ACID/VITAMIN B COMP W-C TABLET PO SCH (08:46)
[2021-06-29] MEDS: HEPARIN 5000 UNITS/ML VIAL SUBCUT SCH ×2 (08:47→20:51)
[2021-06-29] MEDS: CARVEDILOL 3.125 MG TABLET PO SCH ×3 (08:47→20:51)
[2021-06-29] MEDS: CHOLECALCIFEROL (D3) 1000 UNIT TABLET PO SCH (08:47)
[2021-06-29] MEDS: ONDANSETRON HCL 4MG/2ML INJ IV PRN ×2 (08:48→20:51)
[2021-06-29] MEDS: CINACALCET HCL 60MG TABLET PO SCH (08:48)
[2021-06-29] MEDS: POLYETHYLENE GLYCOL 3350 (17GM) 1 DOSE PACK GT SCH (08:50)
[2021-06-29 08:59] LABS: BASOPHILS % 0.4 % (0.0-2.0); EOSINOPHILS % 2.1 % (0.0-5.0); HEMATOCRIT. 37.7 % (42.0-52.0); HEMOGLOBIN. 12.4 g/dL (14.0-18.0); LYMPHOCYTES % 15.9 % (20.0-50.0); MEAN CORPUSCULAR HEMOGLOBIN 30.7 pg (28.0-32.0); MEAN CORPUSCULAR VOLUME 93.5 fL (80.0-94.0); MEAN PLATELET VOLUME 8.6 fl (7.4-10.4); MONOCYTES % 12.9 % (2.0-8.0); NEUTROPHILS % 68.7 % (40.0-76.0); PLATELET 279 x1000/uL (130-400); RED BLOOD CELL COUNT 4.03 mill/uL (4.7-6.1); RED CELL DISTRIBUTION WIDTH 17.1 % (11.6-14.6)
[2021-06-29] MEDS ORDERED: FENTANYL CITRATE/PF 50MCG/ML 2ML VIAL ONE (10:49)
[2021-06-29 12:00] VITALS: BP 90/52
[2021-06-29] MEDS ORDERED: LACTULOSE 20G/30ML UDC PO SCH (12:45)
[2021-06-29] MEDS: ACETAMINOPHEN 325MG TABLET PO PRN (14:45)
[2021-06-29 16:00] VITALS: BP 101/49
[2021-06-29 20:00] VITALS: BP 154/60
[2021-06-29] MEDS: TEMAZEPAM 15MG CAPSULE PO PRN (20:50)
[2021-06-29] MEDS: ATORVASTATIN CALCIUM 20MG TABLET PO SCH (20:51)
[2021-06-30] VITALS: BP 117/57
[2021-06-30] MEDS: MORPHINE SULFATE 2 MG/ML CPJ (NOT FOR IM USE) IV PRN ×2 (00:02→08:32)
[2021-06-30] MEDS: HYDROCODONE/ACETAMINOPHEN 5/325MG TABLET PO PRN (02:26)
[2021-06-30 04:00] VITALS: BP 132/64
[2021-06-30 07:38] LABS: BASOPHILS % 0.6 % (0.0-2.0); EOSINOPHILS % 1.4 % (0.0-5.0); HEMATOCRIT. 35.3 % (42.0-52.0); HEMOGLOBIN. 11.8 g/dL (14.0-18.0); LYMPHOCYTES % 9.5 % (20.0-50.0); MEAN PLATELET VOLUME 8.8 fl (7.4-10.4); MONOCYTES % 13.3 % (2.0-8.0); NEUTROPHILS % 75.2 % (40.0-76.0); PLATELET 271 x1000/uL (130-400); RED BLOOD CELL COUNT 3.79 mill/uL (4.7-6.1); RED CELL DISTRIBUTION WIDTH 16.5 % (11.6-14.6)
[2021-06-30 08:00] VITALS: BP 105/23
[2021-06-30] MEDS: ONDANSETRON HCL 4MG/2ML INJ IV PRN ×2 (08:18→14:33)
[2021-06-30] MEDS: DOCUSATE SODIUM SUGAR FREE 100MG/10ML UDC GT SCH ×2 (08:20→17:13)
[2021-06-30] MEDS: FOLIC ACID/VITAMIN B COMP W-C TABLET PO SCH (08:21)
[2021-06-30] MEDS: HEPARIN 5000 UNITS/ML VIAL SUBCUT SCH ×2 (08:21→22:03)
[2021-06-30] MEDS: CINACALCET HCL 60MG TABLET PO SCH (08:21)
[2021-06-30] MEDS: CHOLECALCIFEROL (D3) 1000 UNIT TABLET PO SCH (08:21)
[2021-06-30] MEDS: CARVEDILOL 3.125 MG TABLET PO SCH ×2 (09:00→22:02)
[2021-06-30] MEDS: POLYETHYLENE GLYCOL 3350 (17GM) 1 DOSE PACK GT SCH (09:34)
[2021-06-30 12:00] VITALS: BP 115/66
[2021-06-30] MEDS: PANTOPRAZOLE SODIUM 40 MG/VIAL IV SCH ×2 (14:40→22:03)
[2021-06-30 16:00] VITALS: BP 108/63
[2021-06-30] MEDS ORDERED: DIATR MEGLU/DIATRIZOATE SOLN 30ML ONE (16:19)
[2021-06-30 20:00] VITALS: BP 106/50
[2021-06-30] MEDS: ACETAMINOPHEN 325MG TABLET PO PRN (22:01)
[2021-06-30] MEDS: ATORVASTATIN CALCIUM 20MG TABLET PO SCH (22:01)
[2021-06-30] MEDS: TEMAZEPAM 15MG CAPSULE PO PRN (22:22)
[2021-07-01] VITALS: BP 115/70
[2021-07-01] MEDS: ACETAMINOPHEN 325MG TABLET PO PRN (02:58)
[2021-07-01 04:00] VITALS: BP 140/66
[2021-07-01 08:00] VITALS: BP 104/66
[2021-07-01] MEDS ORDERED: NALOXONE HCL 0.4 MG/ML 1ML VIAL IV PRN (09:45)
[2021-07-01] MEDS: HEPARIN 5000 UNITS/ML VIAL SUBCUT SCH ×2 (09:52→21:32)
[2021-07-01] MEDS: PANTOPRAZOLE SODIUM 40 MG/VIAL IV SCH ×2 (09:52→21:32)
[2021-07-01] MEDS: FOLIC ACID/VITAMIN B COMP W-C TABLET PO SCH (09:52)
[2021-07-01] MEDS: CHOLECALCIFEROL (D3) 1000 UNIT TABLET PO SCH (09:52)
[2021-07-01] MEDS: POLYETHYLENE GLYCOL 3350 (17GM) 1 DOSE PACK GT SCH (09:52)
[2021-07-01] MEDS: HYDROCODONE/ACETAMINOPHEN 5/325MG TABLET PO PRN (09:56)
[2021-07-01] MEDS: CINACALCET HCL 60MG TABLET PO SCH (09:56)
[2021-07-01] MEDS: CARVEDILOL 3.125 MG TABLET PO SCH ×2 (10:01→21:00)
[2021-07-01] MEDS: DOCUSATE SODIUM SUGAR FREE 100MG/10ML UDC GT SCH ×2 (10:01→16:51)
[2021-07-01 12:00] VITALS: BP 108/51
[2021-07-01] MEDS ORDERED: ONDANSETRON HCL 4MG/2ML INJ IM NR (14:00)
[2021-07-01 16:00] VITALS: BP 93/52
[2021-07-01 20:00] VITALS: BP 81/40
[2021-07-01] MEDS: ATORVASTATIN CALCIUM 20MG TABLET PO SCH (21:32)
[2021-07-01 21:41] LABS: BASOPHILS % 0.3 % (0.0-2.0); EOSINOPHILS % 0.9 % (0.0-5.0); HEMATOCRIT. 36.8 % (42.0-52.0); HEMOGLOBIN. 12.1 g/dL (14.0-18.0); LYMPHOCYTES % 11.9 % (20.0-50.0); MEAN CORPUSCULAR HEMOGLOBIN 30.5 pg (28.0-32.0); MEAN CORPUSCULAR VOLUME 92.8 fL (80.0-94.0); MEAN PLATELET VOLUME 8.7 fl (7.4-10.4); MONOCYTES % 13.7 % (2.0-8.0); NEUTROPHILS % 73.2 % (40.0-76.0); PLATELET 277 x1000/uL (130-400); RED BLOOD CELL COUNT 3.97 mill/uL (4.7-6.1); RED CELL DISTRIBUTION WIDTH 17.1 % (11.6-14.6)
[2021-07-01 21:51] LABS: INR 1.1; PROTHROMBIN TIME 11.4 sec (9.6-11.0)
[2021-07-02] VITALS: BP 97/33
[2021-07-02] MEDS: ACETAMINOPHEN 325MG TABLET PO PRN (03:23)
[2021-07-02 04:00] VITALS: BP 94/48
[2021-07-02] MEDS: MORPHINE SULFATE 2 MG/ML CPJ (NOT FOR IM USE) IV PRN ×2 (04:26→16:57)
[2021-07-02 06:48] LABS: HEPATITIS B SURFACE ANTIGEN NEGATIVE
[2021-07-02 06:51] LABS: BASOPHILS % 0.4 % (0.0-2.0); EOSINOPHILS % 1.3 % (0.0-5.0); HEMATOCRIT. 33.2 % (42.0-52.0); HEMOGLOBIN. 11.3 g/dL (14.0-18.0); LYMPHOCYTES % 8.8 % (20.0-50.0); MEAN CORPUSCULAR HEMOGLOBIN 31.6 pg (28.0-32.0); MEAN CORPUSCULAR VOLUME 93.3 fL (80.0-94.0); MEAN PLATELET VOLUME 9.3 fl (7.4-10.4); MONOCYTES % 13.1 % (2.0-8.0); NEUTROPHILS % 76.4 % (40.0-76.0); PLATELET 251 x1000/uL (130-400); RED BLOOD CELL COUNT 3.56 mill/uL (4.7-6.1)
[2021-07-02 08:00] VITALS: BP 92/49
[2021-07-02] MEDS: CHOLECALCIFEROL (D3) 1000 UNIT TABLET PO SCH (08:55)
[2021-07-02] MEDS: HEPARIN 5000 UNITS/ML VIAL SUBCUT SCH ×2 (08:56→21:05)
[2021-07-02] MEDS: DOCUSATE SODIUM SUGAR FREE 100MG/10ML UDC GT SCH ×2 (08:56→16:57)
[2021-07-02] MEDS: FOLIC ACID/VITAMIN B COMP W-C TABLET PO SCH (08:56)
[2021-07-02] MEDS: CINACALCET HCL 60MG TABLET PO SCH (08:56)
[2021-07-02] MEDS: CARVEDILOL 3.125 MG TABLET PO SCH ×2 (08:56→21:06)
[2021-07-02] MEDS: PANTOPRAZOLE SODIUM 40 MG/VIAL IV SCH ×2 (08:56→21:05)
[2021-07-02] MEDS: POLYETHYLENE GLYCOL 3350 (17GM) 1 DOSE PACK GT SCH (08:57)
[2021-07-02 12:07] VITALS: BP 112/57
[2021-07-02] MEDS: ONDANSETRON HCL 4MG/2ML INJ IV PRN (15:55)
[2021-07-02 16:03] VITALS: BP 147/73
[2021-07-02] MEDS ORDERED: DEXT 5%/0.45% NACL 500ML 500 ML IV ONE (19:00)
[2021-07-02 20:00] VITALS: BP 127/47
[2021-07-02] MEDS: ATORVASTATIN CALCIUM 20MG TABLET PO SCH (21:05)
[2021-07-03] VITALS: BP 92/42
[2021-07-03] MEDS: ONDANSETRON HCL 4MG/2ML INJ IV PRN ×3 (02:57→22:45)
[2021-07-03 04:00] VITALS: BP 123/75
[2021-07-03 07:21] LABS: HEMATOCRIT. 36.5 % (42.0-52.0); HEMOGLOBIN. 11.8 g/dL (14.0-18.0); MEAN PLATELET VOLUME 8.9 fl (7.4-10.4); PLATELET 318 x1000/uL (130-400); RED BLOOD CELL COUNT 3.93 mill/uL (4.7-6.1); RED CELL DISTRIBUTION WIDTH 16.9 % (11.6-14.6)
[2021-07-03 07:56] VITALS: BP 94/44
[2021-07-03] MEDS: CARVEDILOL 3.125 MG TABLET PO SCH ×2 (09:00→20:22)
[2021-07-03] MEDS: DOCUSATE SODIUM SUGAR FREE 100MG/10ML UDC GT SCH ×2 (09:15→16:25)
[2021-07-03] MEDS: CHOLECALCIFEROL (D3) 1000 UNIT TABLET PO SCH (09:15)
[2021-07-03] MEDS: CINACALCET HCL 60MG TABLET PO SCH (09:15)
[2021-07-03] MEDS: ACETAMINOPHEN 325MG TABLET PO PRN (09:15)
[2021-07-03] MEDS: HEPARIN 5000 UNITS/ML VIAL SUBCUT SCH ×2 (09:15→20:21)
[2021-07-03] MEDS: FOLIC ACID/VITAMIN B COMP W-C TABLET PO SCH (09:15)
[2021-07-03] MEDS: POLYETHYLENE GLYCOL 3350 (17GM) 1 DOSE PACK GT SCH (09:16)
[2021-07-03] MEDS: PANTOPRAZOLE SODIUM 40 MG/VIAL IV SCH ×2 (10:46→20:21)
[2021-07-03 10:55] LABS: PLATELET ESTIMATE NORMAL
[2021-07-03 11:51] VITALS: BP 98/37
[2021-07-03] MEDS ORDERED: SORBITOL 70% SOLN 30ML PEG NR (13:45)
[2021-07-03 16:12] VITALS: BP 93/56
[2021-07-03] MEDS: DEXT 5%/0.45% NACL 1000ML 1,000 ML IV SCH (17:45)
[2021-07-03 20:00] VITALS: BP 109/59
[2021-07-03] MEDS: ATORVASTATIN CALCIUM 20MG TABLET PO SCH (20:22)
[2021-07-04] VITALS: BP 104/52
[2021-07-04 04:00] VITALS: BP 104/54
[2021-07-04 06:31] LABS: HEMATOCRIT. 34.5 % (42.0-52.0); MEAN CORPUSCULAR HEMOGLOBIN 29.7 pg (28.0-32.0); MEAN CORPUSCULAR VOLUME 92.9 fL (80.0-94.0); PLATELET 341 x1000/uL (130-400); RED BLOOD CELL COUNT 3.71 mill/uL (4.7-6.1); RED CELL DISTRIBUTION WIDTH 17.1 % (11.6-14.6)
[2021-07-04] MEDS: POLYETHYLENE GLYCOL 3350 (17GM) 1 DOSE PACK GT SCH (09:00)
[2021-07-04] MEDS: CARVEDILOL 3.125 MG TABLET PO SCH ×2 (09:00→20:49)
[2021-07-04] MEDS: PANTOPRAZOLE SODIUM 40 MG/VIAL IV SCH ×2 (09:47→20:48)
[2021-07-04] MEDS: DOCUSATE SODIUM SUGAR FREE 100MG/10ML UDC GT SCH ×2 (09:47→17:00)
[2021-07-04] MEDS: FOLIC ACID/VITAMIN B COMP W-C TABLET PO SCH (09:47)
[2021-07-04] MEDS: CHOLECALCIFEROL (D3) 1000 UNIT TABLET PO SCH (09:47)
[2021-07-04] MEDS: HEPARIN 5000 UNITS/ML VIAL SUBCUT SCH ×2 (09:51→20:48)
[2021-07-04] MEDS: CINACALCET HCL 60MG TABLET PO SCH (10:03)
[2021-07-04 14:33] LABS: NUCLEATED RED BLOOD CELLS 1 /100 WBC
[2021-07-04 14:34] LABS: PLATELET ESTIMATE NORMAL
[2021-07-04] MEDS: DEXT 5%/0.45% NACL 1000ML 1,000 ML IV SCH (15:05)
[2021-07-04 15:09] VITALS: BP 92/53
[2021-07-04] MEDS ORDERED: VANCOMYCIN 1250MG in DEXTROSE 5% WATER 250ML IV NR (15:30)
[2021-07-04 16:00] VITALS: BP 101/59
[2021-07-04 20:00] VITALS: BP 124/89
[2021-07-04] MEDS: ATORVASTATIN CALCIUM 20MG TABLET PO SCH (20:48)
[2021-07-05] VITALS: BP 130/80
[2021-07-05 04:00] VITALS: BP 110/66
[2021-07-05 07:05] LABS: HEMATOCRIT. 31.9 % (42.0-52.0); HEMOGLOBIN. 10.5 g/dL (14.0-18.0); MEAN CORPUSCULAR HEMOGLOBIN 30.6 pg (28.0-32.0); MEAN CORPUSCULAR VOLUME 92.7 fL (80.0-94.0); MEAN PLATELET VOLUME 9.5 fl (7.4-10.4); PLATELET 299 x1000/uL (130-400); RED BLOOD CELL COUNT 3.44 mill/uL (4.7-6.1)
[2021-07-05 08:00] VITALS: BP 95/45
[2021-07-05] MEDS: DOCUSATE SODIUM SUGAR FREE 100MG/10ML UDC GT SCH ×2 (09:00→17:00)
[2021-07-05] MEDS: CARVEDILOL 3.125 MG TABLET PO SCH ×2 (09:00→21:00)
[2021-07-05] MEDS: CHOLECALCIFEROL (D3) 1000 UNIT TABLET PO SCH (10:39)
[2021-07-05] MEDS: PANTOPRAZOLE SODIUM 40 MG/VIAL IV SCH ×2 (10:39→10:46)
[2021-07-05] MEDS: FOLIC ACID/VITAMIN B COMP W-C TABLET PO SCH (10:39)
[2021-07-05] MEDS: HEPARIN 5000 UNITS/ML VIAL SUBCUT SCH ×2 (10:39→20:02)
[2021-07-05] MEDS: CINACALCET HCL 60MG TABLET PO SCH (10:39)
[2021-07-05] MEDS: POLYETHYLENE GLYCOL 3350 (17GM) 1 DOSE PACK GT SCH (10:48)
[2021-07-05] MEDS: DEXT 5%/0.45% NACL 1000ML 1,000 ML IV SCH (10:52)
[2021-07-05 12:00] VITALS: BP 92/49
[2021-07-05 14:01] LABS: PLATELET ESTIMATE NORMAL
[2021-07-05 16:00] VITALS: BP 105/27
[2021-07-05] MEDS ORDERED: VANCOMYCIN 500 MG PREMIX 100 ML IV NR ×3 (17:00→21:00)
[2021-07-05] MEDS ORDERED: HEPARIN SODIUM 1,000 UNIT/1ML VIAL IV NR (19:00)
[2021-07-05 20:00] VITALS: BP 108/40
[2021-07-05] MEDS: ATORVASTATIN CALCIUM 20MG TABLET PO SCH (21:08)
[2021-07-05] MEDS: ACETAMINOPHEN 325MG TABLET PO PRN (21:09)
[2021-07-06] VITALS (15 sets, daily range): BP systolic 90–124; BP diastolic 39–72
[2021-07-06] MEDS: HYDROCODONE/ACETAMINOPHEN 5/325MG TABLET PO PRN (02:15)
[2021-07-06] MEDS: DEXT 5%/0.45% NACL 1000ML 1,000 ML IV SCH (06:43)
[2021-07-06 07:13] LABS: HEMATOCRIT. 27.6 % (42.0-52.0); HEMOGLOBIN. 9.1 g/dL (14.0-18.0); MEAN CORPUSCULAR HEMOGLOBIN 30.6 pg (28.0-32.0); MEAN CORPUSCULAR VOLUME 92.7 fL (80.0-94.0); MEAN PLATELET VOLUME 8.7 fl (7.4-10.4); PLATELET 266 x1000/uL (130-400); RED BLOOD CELL COUNT 2.98 mill/uL (4.7-6.1); RED CELL DISTRIBUTION WIDTH 17.1 % (11.6-14.6)
[2021-07-06] MEDS: CARVEDILOL 3.125 MG TABLET PO SCH ×2 (09:00→20:28)
[2021-07-06] MEDS: PANTOPRAZOLE SODIUM 40 MG/VIAL IV SCH ×2 (10:04→20:28)
[2021-07-06] MEDS: DOCUSATE SODIUM SUGAR FREE 100MG/10ML UDC GT SCH ×2 (10:05→17:00)
[2021-07-06] MEDS: POLYETHYLENE GLYCOL 3350 (17GM) 1 DOSE PACK GT SCH (10:05)
[2021-07-06] MEDS: HEPARIN 5000 UNITS/ML VIAL SUBCUT SCH ×2 (10:06→21:00)
[2021-07-06] MEDS: FOLIC ACID/VITAMIN B COMP W-C TABLET PO SCH (10:07)
[2021-07-06] MEDS: CHOLECALCIFEROL (D3) 1000 UNIT TABLET PO SCH (10:07)
[2021-07-06] MEDS: CINACALCET HCL 60MG TABLET PO SCH (10:07)
[2021-07-06] MEDS ORDERED: LIDOCAINE HCL 1% 20ML VIAL (Pyxis) INJ ONE (14:55)
[2021-07-06 16:01] LABS: PLATELET ESTIMATE NORMAL
[2021-07-06] MEDS: TRAMADOL 50MG TABLET PO PRN (20:27)
[2021-07-06] MEDS: ATORVASTATIN CALCIUM 20MG TABLET PO SCH (20:28)
[2021-07-07] VITALS: BP 98/36
[2021-07-07] MEDS: DEXT 5%/0.45% NACL 1000ML 1,000 ML IV SCH (01:04)
[2021-07-07 04:00] VITALS: BP 92/36
[2021-07-07 07:08] LABS: HEMATOCRIT. 30.8 % (42.0-52.0); MEAN CORPUSCULAR HEMOGLOBIN 30.1 pg (28.0-32.0); MEAN CORPUSCULAR VOLUME 92.6 fL (80.0-94.0); MEAN PLATELET VOLUME 8.5 fl (7.4-10.4); PLATELET 287 x1000/uL (130-400); RED BLOOD CELL COUNT 3.33 mill/uL (4.7-6.1); RED CELL DISTRIBUTION WIDTH 17.3 % (11.6-14.6)
[2021-07-07 07:20] LABS: PROTHROMBIN TIME 10.9 sec (9.6-11.0)
[2021-07-07 08:00] VITALS: BP 115/54
[2021-07-07] MEDS: POLYETHYLENE GLYCOL 3350 (17GM) 1 DOSE PACK GT SCH (08:34)
[2021-07-07] MEDS: DOCUSATE SODIUM SUGAR FREE 100MG/10ML UDC GT SCH ×2 (08:34→17:11)
[2021-07-07] MEDS: CINACALCET HCL 60MG TABLET PO SCH (08:35)
[2021-07-07] MEDS: FOLIC ACID/VITAMIN B COMP W-C TABLET PO SCH (08:35)
[2021-07-07] MEDS: CARVEDILOL 3.125 MG TABLET PO SCH ×2 (08:35→20:25)
[2021-07-07] MEDS: HEPARIN 5000 UNITS/ML VIAL SUBCUT SCH ×2 (08:35→20:25)
[2021-07-07] MEDS: CHOLECALCIFEROL (D3) 1000 UNIT TABLET PO SCH (08:35)
[2021-07-07] MEDS: PANTOPRAZOLE SODIUM 40 MG/VIAL IV SCH ×2 (08:35→20:23)
[2021-07-07] MEDS ORDERED: MORPHINE SULFATE 2 MG/ML CPJ (NOT FOR IM USE) IV NR (11:00)
[2021-07-07 11:16] LABS: PLATELET ESTIMATE NORMAL
[2021-07-07 12:00] VITALS: BP 123/64
[2021-07-07] MEDS ORDERED: SIMETHICONE 40 MG/0.6 ML 30ML ONE (13:33)
[2021-07-07] MEDS ORDERED: MIDAZOLAM HCL 5 MG/5 ML VIAL IV PRN (13:49)
[2021-07-07] MEDS ORDERED: FENTANYL CITRATE/PF 50MCG/ML 2ML VIAL ONE (13:52)
[2021-07-07] MEDS ORDERED: MIDAZOLAM HCL 5 MG/5 ML VIAL ONE (13:52)
[2021-07-07] MEDS: TRAMADOL 50MG TABLET PO PRN (15:55)
[2021-07-07 16:00] VITALS: BP 123/63
[2021-07-07 20:00] VITALS: BP 116/59
[2021-07-07] MEDS: ACETAMINOPHEN 325MG TABLET PO PRN (20:25)
[2021-07-07] MEDS: ATORVASTATIN CALCIUM 20MG TABLET PO SCH (20:25)
[2021-07-07] MEDS ORDERED: VANCOMYCIN 500 MG PREMIX 100 ML IV SCH (21:00)
[2021-07-08] VITALS: BP 101/35
[2021-07-08] MEDS: DEXT 5%/0.45% NACL 1000ML 1,000 ML IV SCH ×2 (00:23→18:57)
[2021-07-08 04:00] VITALS: BP 92/42
[2021-07-08] MEDS: ACETAMINOPHEN 325MG TABLET PO PRN (04:27)
[2021-07-08 08:00] VITALS: BP 99/63
[2021-07-08 08:08] LABS: HEMATOCRIT. 29.7 % (42.0-52.0); HEMOGLOBIN. 9.7 g/dL (14.0-18.0); MEAN CORPUSCULAR HEMOGLOBIN 30.6 pg (28.0-32.0); MEAN PLATELET VOLUME 8.5 fl (7.4-10.4); PLATELET 247 x1000/uL (130-400); RED BLOOD CELL COUNT 3.16 mill/uL (4.7-6.1); RED CELL DISTRIBUTION WIDTH 16.5 % (11.6-14.6)
[2021-07-08] MEDS: HEPARIN 5000 UNITS/ML VIAL SUBCUT SCH (09:00)
[2021-07-08] MEDS: DOCUSATE SODIUM SUGAR FREE 100MG/10ML UDC GT SCH ×2 (09:00→17:00)
[2021-07-08] MEDS: CARVEDILOL 3.125 MG TABLET PO SCH ×2 (09:00→21:00)
[2021-07-08] MEDS: CHOLECALCIFEROL (D3) 1000 UNIT TABLET PO SCH (09:00)
[2021-07-08 10:38] LABS: PLATELET ESTIMATE NORMAL
[2021-07-08] MEDS: CINACALCET HCL 60MG TABLET PO SCH (10:57)
[2021-07-08] MEDS: POLYETHYLENE GLYCOL 3350 (17GM) 1 DOSE PACK GT SCH (10:57)
[2021-07-08] MEDS: PANTOPRAZOLE SODIUM 40 MG/VIAL IV SCH (10:57)
[2021-07-08] MEDS: FOLIC ACID/VITAMIN B COMP W-C TABLET PO SCH (10:57)
[2021-07-08 12:00] VITALS: BP 106/63
[2021-07-08] MEDS: TRAMADOL 50MG TABLET PO PRN (13:13)
[2021-07-08 16:00] VITALS: BP 115/57
[2021-07-08 20:00] VITALS: BP 149/66
[2021-07-08 21:29] LABS: HEPATITIS B SURFACE ANTIGEN NEGATIVE
[2021-07-09] VITALS (7 sets, daily range): BP systolic 102–142; BP diastolic 36–92
[2021-07-09] MEDS: HEPARIN 5000 UNITS/ML VIAL SUBCUT SCH ×2 (00:32→09:00)
[2021-07-09] MEDS: ATORVASTATIN CALCIUM 20MG TABLET PO SCH (00:32)
[2021-07-09] MEDS: PANTOPRAZOLE SODIUM 40 MG/VIAL IV SCH ×2 (00:32→09:36)
[2021-07-09] MEDS: TRAMADOL 50MG TABLET PO PRN ×3 (00:42→16:05)
[2021-07-09 07:19] LABS: HEMATOCRIT. 26.4 % (42.0-52.0); HEMOGLOBIN. 8.8 g/dL (14.0-18.0); MEAN CORPUSCULAR HEMOGLOBIN 30.4 pg (28.0-32.0); MEAN CORPUSCULAR VOLUME 91.5 fL (80.0-94.0); MEAN PLATELET VOLUME 8.2 fl (7.4-10.4); PLATELET 255 x1000/uL (130-400); RED BLOOD CELL COUNT 2.89 mill/uL (4.7-6.1); RED CELL DISTRIBUTION WIDTH 16.5 % (11.6-14.6)
[2021-07-09] MEDS: CARVEDILOL 3.125 MG TABLET PO SCH (09:00)
[2021-07-09] MEDS: POLYETHYLENE GLYCOL 3350 (17GM) 1 DOSE PACK GT SCH (09:35)
[2021-07-09] MEDS: CHOLECALCIFEROL (D3) 1000 UNIT TABLET PO SCH (09:38)
[2021-07-09] MEDS: FOLIC ACID/VITAMIN B COMP W-C TABLET PO SCH (09:38)
[2021-07-09] MEDS: CINACALCET HCL 60MG TABLET PO SCH (09:38)
[2021-07-09] MEDS: DOCUSATE SODIUM SUGAR FREE 100MG/10ML UDC GT SCH ×2 (09:40→17:12)
[2021-07-09] MEDS: DEXT 5%/0.45% NACL 1000ML 1,000 ML IV SCH (13:12)
[2021-07-09 15:53] LABS: PLATELET ESTIMATE NORMAL
[2021-07-09] MEDS ORDERED: VANCOMYCIN 500 MG PREMIX 100 ML IV NR (18:00)
== END 2021-07-09 20:53 | DRG 207 ==
LOC: ER 11:49 → 8WST 13:28 → ENRESERV 19:54
PROVIDERS: ADMIT Internal Medicine; ATTEND Internal Medicine
PROC: 02HV33Z Insertion of Infusion Device into Superior Vena Cava, Percutaneous Approach (ICD-10-PCS; 2021-06-26)
PROC: B548ZZA Ultrasonography of Superior Vena Cava, Guidance (ICD-10-PCS; 2021-06-26)
PROC: B5181ZA Fluoroscopy of Superior Vena Cava using Low Osmolar Contrast, Guidance (ICD-10-PCS; 2021-06-26)
PROC: 5A1D70Z Performance of Urinary Filtration, Intermittent, Less than 6 Hours Per Day (ICD-10-PCS; 2021-06-28)
PROC: 5A1D70Z Performance of Urinary Filtration, Intermittent, Less than 6 Hours Per Day (ICD-10-PCS; 2021-06-30)
PROC: 5A1D70Z Performance of Urinary Filtration, Intermittent, Less than 6 Hours Per Day (ICD-10-PCS; 2021-07-02)
PROC: 5A1D70Z Performance of Urinary Filtration, Intermittent, Less than 6 Hours Per Day (ICD-10-PCS; 2021-07-04)
PROC: 5A1D70Z Performance of Urinary Filtration, Intermittent, Less than 6 Hours Per Day (ICD-10-PCS; 2021-07-05)
PROC: 02PYX3Z Removal of Infusion Device from Great Vessel, External Approach (ICD-10-PCS; 2021-07-06)
PROC: 0JH63XZ Insertion of Tunneled Vascular Access Device into Chest Subcutaneous Tissue and Fascia, Percutaneous Approach (ICD-10-PCS; 2021-07-06)
PROC: 06H033Z Insertion of Infusion Device into Inferior Vena Cava, Percutaneous Approach (ICD-10-PCS; 2021-07-06)
PROC: B5191ZA Fluoroscopy of Inferior Vena Cava using Low Osmolar Contrast, Guidance (ICD-10-PCS; 2021-07-06)
PROC: 0DH63UZ Insertion of Feeding Device into Stomach, Percutaneous Approach (ICD-10-PCS; principal; 2021-07-07)
PROC: 0DB68ZX Excision of Stomach, Via Natural or Artificial Opening Endoscopic, Diagnostic (ICD-10-PCS; 2021-07-07)
PROC: 5A1D70Z Performance of Urinary Filtration, Intermittent, Less than 6 Hours Per Day (ICD-10-PCS; 2021-07-07)
PROC: 5A1D70Z Performance of Urinary Filtration, Intermittent, Less than 6 Hours Per Day (ICD-10-PCS; 2021-07-09)
DX: I95.9 Hypotension, unspecified (principal); A41.1 Sepsis due to other specified staphylococcus; I13.2 Hypertensive heart and chronic kidney disease with heart failure and with stage 5 chronic kidney disease, or end stage renal disease; K29.71 Gastritis, unspecified, with bleeding; I69.354 Hemiplegia and hemiparesis following cerebral infarction affecting left non-dominant side; I42.9 Cardiomyopathy, unspecified; D63.8 Anemia in other chronic diseases classified elsewhere; I48.92 Unspecified atrial flutter; I47.1 Supraventricular tachycardia; T80.211A Bloodstream infection due to central venous catheter, initial encounter; N18.6 End stage renal disease; K56.7 Ileus, unspecified; K94.23 Gastrostomy malfunction; D64.9 Anemia, unspecified; D72.821 Monocytosis (symptomatic); E78.5 Hyperlipidemia, unspecified; G89.4 Chronic pain syndrome; J44.9 Chronic obstructive pulmonary disease, unspecified; B19.20 Unspecified viral hepatitis C without hepatic coma; E78.00 Pure hypercholesterolemia, unspecified; G47.00 Insomnia, unspecified; K44.9 Diaphragmatic hernia without obstruction or gangrene; R13.12 Dysphagia, oropharyngeal phase; R32 Unspecified urinary incontinence; E83.52 Hypercalcemia; I44.0 Atrioventricular block, first degree; K57.30 Diverticulosis of large intestine without perforation or abscess without bleeding; B18.2 Chronic viral hepatitis C; Y83.8 Other surgical procedures as the cause of abnormal reaction of the patient, or of later complication, without mention of misadventure at the time of the procedure; Y92.238 Other place in hospital as the place of occurrence of the external cause; R53.1 Weakness; R51.9 Headache, unspecified; I44.7 Left bundle-branch block, unspecified; K21.00 Gastro-esophageal reflux disease with esophagitis, without bleeding; R07.89 Other chest pain; R74.8 Abnormal levels of other serum enzymes; I50.9 Heart failure, unspecified; Z20.822 Contact with and (suspected) exposure to COVID-19; Z92.3 Personal history of irradiation; Z93.1 Gastrostomy status; Z99.2 Dependence on renal dialysis; Z88.6 Allergy status to analgesic agent; Z87.891 Personal history of nicotine dependence; Z79.899 Other long term (current) drug therapy; I69.391 Dysphagia following cerebral infarction; I69.322 Dysarthria following cerebral infarction; Z87.81 Personal history of (healed) traumatic fracture
CPT/HCPCS: 36415; 36558; 36573; 70551; 71045; 71275; 74018; 76700; 77001; 80048; 80053; 80076; 80202; 82140; 82270; 82550; 82553; 82962; 83735; 84145; 84443; 84484; 85025; 86705; 86709; 86803; 87077; 87186; 87340; 87426; 88305; 88312; 88313; 93005; 93306; 97162; 99285; C1725; C1750; C1769; C1893; C9113; J1642; J1644; J2250; J2270; J2405; J3010; J3370; J3490; J7040; J7060; J7070; L8514; Q9963; Q9967

== ENCOUNTER 2021-07-12 17:10 | Inpatient (IN) | payer MEDICARE, MEDICAID ==
[~2021-07-12] VITALS: Ht 180.3 cm; Wt 59.9 kg
[~2021-07-12 17:10] MED LIST changes: -AMLO10TA80 PO; -CLON0.1T PO; +COR3 PO; -HYDR-4134 PO; -LOSA100T3 PO
[2021-07-12 22:14] LABS: BASOPHILS % 0.5 % (0.0-2.0); EOSINOPHILS % 1.2 % (0.0-5.0); HEMATOCRIT. 25.2 % (42.0-52.0); HEMOGLOBIN. 8.1 g/dL (14.0-18.0); LYMPHOCYTES % 7.4 % (20.0-50.0); MEAN CORPUSCULAR HEMOGLOBIN 30.1 pg (28.0-32.0); MEAN CORPUSCULAR VOLUME 93.5 fL (80.0-94.0); MONOCYTES % 9.7 % (2.0-8.0); NEUTROPHILS % 81.2 % (40.0-76.0); RED CELL DISTRIBUTION WIDTH 16.7 % (11.6-14.6)
[2021-07-12 22:16] LABS: CHLORIDE 103 mEq/L (98-107)
[2021-07-12 22:44] LABS: MEAN PLATELET VOLUME 8.3 fl (7.4-10.4); PLATELET 274 x1000/uL (130-400)
[2021-07-12] MEDS ORDERED: NACL IV SCH (23:30)
[2021-07-12] MEDS ORDERED: CALCIUM GLUCONATE 1GM PREMIX 50 ML IV SCH (23:30)
[2021-07-12] MEDS ORDERED: CALCIUM GLUCONATE IV SCH (23:30)
[2021-07-12] MEDS ORDERED: ACETAMINOPHEN 325MG TABLET PO PRN (23:45)
[2021-07-12] MEDS ORDERED: ONDANSETRON HCL 4MG/2ML INJ IV PRN (23:45)
[2021-07-13] VITALS (15 sets, daily range): BP systolic 93–140; BP diastolic 49–82
[2021-07-13] MEDS ORDERED: NALOXONE HCL 0.4 MG/ML 1ML VIAL IV PRN (00:30)
[2021-07-13] MEDS: HYDROCODONE/ACETAMINOPHEN 5/325MG TABLET PO PRN ×2 (03:05→22:02)
[2021-07-13 13:19] LABS: BASOPHILS % 0.9 % (0.0-2.0); EOSINOPHILS % 1.9 % (0.0-5.0); HEMATOCRIT. 28.8 % (42.0-52.0); HEMOGLOBIN. 8.5 g/dL (14.0-18.0); LYMPHOCYTES % 8.8 % (20.0-50.0); MEAN CORPUSCULAR HEMOGLOBIN 29.6 pg (28.0-32.0); MEAN CORPUSCULAR VOLUME 99.8 fL (80.0-94.0); MEAN PLATELET VOLUME 8.4 fl (7.4-10.4); MONOCYTES % 8.4 % (2.0-8.0); PLATELET 211 x1000/uL (130-400); RED BLOOD CELL COUNT 2.88 mill/uL (4.7-6.1); RED CELL DISTRIBUTION WIDTH 17.4 % (11.6-14.6)
[2021-07-13 13:52] LABS: HEPATITIS B SURFACE ANTIGEN NEGATIVE
[2021-07-13] MEDS: HEPARIN 5000 UNITS/ML VIAL SUBCUT SCH ×2 (14:00→22:00)
[2021-07-13] MEDS ORDERED: SODIUM BICARBONATE 8.4% 1 MEQ/ML 50ML SYR IV NR (14:15)
[2021-07-13] MEDS ORDERED: DEXTROSE 50% WATER 50ML SYRINGE IV PRN (14:15)
[2021-07-13] MEDS ORDERED: ALBUTEROL (0.083%) 2.5MG/3ML NEB HHN NR (14:15)
[2021-07-13 14:34] LABS: PROTHROMBIN TIME 11.1 sec (9.6-11.0)
[2021-07-13] MEDS ORDERED: HEPARIN 1000 UNITS/ML 10ML ONE (14:43)
[2021-07-13] MEDS ORDERED: LIDOCAINE HCL 1% 20ML VIAL (Pyxis) INJ ONE (14:43)
[2021-07-13] MEDS ORDERED: FENTANYL CITRATE/PF 50MCG/ML 2ML VIAL IV NR (16:00)
[2021-07-13] MEDS ORDERED: SODIUM POLYSTYRENE SULFONATE 15 G/60 ML BOT PO NR (16:00)
[2021-07-13] MEDS ORDERED: CEFAZOLIN 1000MG PREMIX 50 ML IV NR (17:00)
[2021-07-13] MEDS: BLOOD SUGAR DIAGNOSTIC STRIP TEST SCH ×2 (17:42→21:00)
[2021-07-13] MEDS ORDERED: TEMAZEPAM 15MG CAPSULE PO PRN (18:00)
[2021-07-13] MEDS: CARVEDILOL 3.125 MG TABLET PO SCH (21:00)
[2021-07-13] MEDS ORDERED: EPOETIN ALFA-EPBX 10,000 UNIT/ML VIAL SUBCUT SCH (21:00)
[2021-07-13] MEDS: ATORVASTATIN CALCIUM 10MG TABLET PO SCH (22:03)
[2021-07-14] VITALS: BP 100/52
[2021-07-14 04:00] VITALS: BP 90/46
[2021-07-14] MEDS: HEPARIN 5000 UNITS/ML VIAL SUBCUT SCH (06:00)
[2021-07-14] MEDS: BLOOD SUGAR DIAGNOSTIC STRIP TEST SCH ×4 (06:44→21:47)
[2021-07-14 07:08] LABS: HEMATOCRIT. 24.4 % (42.0-52.0); HEMOGLOBIN. 8.1 g/dL (14.0-18.0); MEAN CORPUSCULAR HEMOGLOBIN 30.5 pg (28.0-32.0); MEAN CORPUSCULAR VOLUME 91.4 fL (80.0-94.0); MEAN PLATELET VOLUME 8.2 fl (7.4-10.4); PLATELET 328 x1000/uL (130-400); RED BLOOD CELL COUNT 2.67 mill/uL (4.7-6.1); RED CELL DISTRIBUTION WIDTH 16.5 % (11.6-14.6)
[2021-07-14 08:00] VITALS: BP 104/59
[2021-07-14] MEDS: CARVEDILOL 3.125 MG TABLET PO SCH ×2 (09:00→21:00)
[2021-07-14 12:00] VITALS: BP 112/81
[2021-07-14] MEDS: HYDROCODONE/ACETAMINOPHEN 5/325MG TABLET PO PRN ×2 (14:18→20:27)
[2021-07-14 14:22] LABS: PLATELET ESTIMATE NORMAL
[2021-07-14 16:07] VITALS: BP 99/53
[2021-07-14 20:00] VITALS: BP 105/58
[2021-07-14] MEDS: ATORVASTATIN CALCIUM 10MG TABLET PO SCH (20:26)
[2021-07-15] VITALS: BP 93/71
[2021-07-15 04:00] VITALS: BP 120/64
[2021-07-15 05:56] LABS: HEMATOCRIT 23.2 % (42.0-52.0); HEMOGLOBIN 7.6 g/dL (14.0-18.0); MEAN CORPUSCULAR HEMOGLOBIN 30.5 pg (28.0-32.0); MEAN CORPUSCULAR VOLUME 92.7 fL (80.0-94.0); PLATELET 300 x1000/uL (130-400); RED BLOOD CELL COUNT 2.51 mill/uL (4.7-6.1); RED CELL DISTRIBUTION WIDTH 16.7 % (11.6-14.6)
[2021-07-15] MEDS: BLOOD SUGAR DIAGNOSTIC STRIP TEST SCH ×3 (06:47→17:20)
[2021-07-15 08:00] VITALS: BP 113/89
[2021-07-15] MEDS: CARVEDILOL 3.125 MG TABLET PO SCH (09:40)
[2021-07-15] MEDS: HYDROCODONE/ACETAMINOPHEN 5/325MG TABLET PO PRN (09:41)
[2021-07-15 12:00] VITALS: BP 133/88
[2021-07-15 18:51] VITALS: BP 133/88
[2021-07-15 19:34] VITALS: BP 98/46
== END 2021-07-15 21:35 | DRG 206 ==
LOC: ER 17:10 → 6WST 23:34 → ENRESERV 07-13 02:48
PROVIDERS: ADMIT Family Medicine Adult Medicine; ATTEND Family Medicine Adult Medicine
PROC: 0JH63XZ Insertion of Tunneled Vascular Access Device into Chest Subcutaneous Tissue and Fascia, Percutaneous Approach (ICD-10-PCS; principal; 2021-07-13)
PROC: 06HY33Z Insertion of Infusion Device into Lower Vein, Percutaneous Approach (ICD-10-PCS; 2021-07-13)
PROC: B54BZZA Ultrasonography of Right Lower Extremity Veins, Guidance (ICD-10-PCS; 2021-07-13)
PROC: 5A1D70Z Performance of Urinary Filtration, Intermittent, Less than 6 Hours Per Day (ICD-10-PCS; 2021-07-13)
PROC: 5A1D70Z Performance of Urinary Filtration, Intermittent, Less than 6 Hours Per Day (ICD-10-PCS; 2021-07-15)
DX: T82.838A Hemorrhage due to vascular prosthetic devices, implants and grafts, initial encounter (principal); E43 Unspecified severe protein-calorie malnutrition; I13.2 Hypertensive heart and chronic kidney disease with heart failure and with stage 5 chronic kidney disease, or end stage renal disease; N18.6 End stage renal disease; D63.8 Anemia in other chronic diseases classified elsewhere; I69.354 Hemiplegia and hemiparesis following cerebral infarction affecting left non-dominant side; E78.5 Hyperlipidemia, unspecified; E87.5 Hyperkalemia; J44.9 Chronic obstructive pulmonary disease, unspecified; R13.10 Dysphagia, unspecified; K21.9 Gastro-esophageal reflux disease without esophagitis; G89.4 Chronic pain syndrome; Y84.1 Kidney dialysis as the cause of abnormal reaction of the patient, or of later complication, without mention of misadventure at the time of the procedure; Z20.822 Contact with and (suspected) exposure to COVID-19; E78.00 Pure hypercholesterolemia, unspecified; Z93.1 Gastrostomy status; Z99.2 Dependence on renal dialysis; Z87.891 Personal history of nicotine dependence; Y92.89 Other specified places as the place of occurrence of the external cause; Z68.1 Body mass index [BMI] 19.9 or less, adult; Z79.82 Long term (current) use of aspirin; R91.8 Other nonspecific abnormal finding of lung field; F14.11 Cocaine abuse, in remission; I50.9 Heart failure, unspecified
CPT/HCPCS: 36415; 36558; 71045; 77001; 80048; 80053; 82962; 85025; 85027; 86705; 86709; 86803; 86850; 86900; 87340; 87426; 92610; 93005; 93971; 99152; 99153; 99285; C1750; C1769; J0610; J0690; J0885; J1644; J3010; J3490; G0500

== ENCOUNTER 2022-01-17 10:44 | Emergency (ER) | payer MEDICARE, MEDICAID ==
[~2022-01-17] VITALS: Ht 175.3 cm; Wt 91.0 kg
[~2022-01-17 10:44] MED LIST changes: +ACET-3163 PO; -ACET650T37 PO
[2022-01-17 11:43] LABS: BASOPHILS % 0.5 % (0.0-2.0); EOSINOPHILS % 4.7 % (0.0-5.0); HEMATOCRIT. 39.7 % (42.0-52.0); HEMOGLOBIN. 13.1 g/dL (14.0-18.0); LYMPHOCYTES % 13.4 % (20.0-50.0); MEAN CORPUSCULAR HEMOGLOBIN 26.4 pg (28.0-32.0); MEAN CORPUSCULAR VOLUME 79.9 fL (80.0-94.0); MEAN PLATELET VOLUME 7.4 fl (7.4-10.4); MONOCYTES % 4.3 % (2.0-8.0); NEUTROPHILS % 77.1 % (40.0-76.0); PLATELET 209 x1000/uL (130-400); RED BLOOD CELL COUNT 4.97 mill/uL (4.7-6.1); RED CELL DISTRIBUTION WIDTH 20.8 % (11.6-14.6)
[2022-01-17 11:56] LABS: CHLORIDE 91 mEq/L (98-107)
[2022-01-17] MEDS ORDERED: ACETAMINOPHEN 650MG/20.3ML UDC PO NR (13:45)
[2022-01-17] MEDS ORDERED: GABAPENTIN 100MG CAPSULE GT NR (13:45)
[2022-01-17 17:50] VITALS: BP 153/68
[2022-01-17] MEDS ORDERED: CLONIDINE 0.1MG TABLET PO ONE (18:15)
== END 2022-01-17 17:58 ==
LOC: ER 10:44
DX: R25.2 Cramp and spasm (principal); I12.0 Hypertensive chronic kidney disease with stage 5 chronic kidney disease or end stage renal disease; N18.6 End stage renal disease; J44.1 Chronic obstructive pulmonary disease with (acute) exacerbation; E78.00 Pure hypercholesterolemia, unspecified; Z20.822 Contact with and (suspected) exposure to COVID-19; Z98.890 Other specified postprocedural states; Z79.899 Other long term (current) drug therapy; Z86.73 Personal history of transient ischemic attack (TIA), and cerebral infarction without residual deficits
CPT/HCPCS: 36415; 71045; 80053; 84484; 85025; 87426; 93005; 99285

== ENCOUNTER 2022-02-04 10:36 | Inpatient (IN) | payer MEDICARE, MEDICAID ==
[~2022-02-04] VITALS: Ht 175.3 cm; Wt 66.4 kg
[2022-02-04] MEDS ORDERED: ONDANSETRON HCL 4MG/2ML INJ IV STA (11:02)
[2022-02-04 11:40] LABS: CHLORIDE 92 mEq/L (98-107)
[2022-02-04 11:42] LABS: BASOPHILS % 0.6 % (0.0-2.0); HEMATOCRIT. 34.5 % (42.0-52.0); HEMOGLOBIN. 11.5 g/dL (14.0-18.0); LYMPHOCYTES % 10.1 % (20.0-50.0); MEAN PLATELET VOLUME 7.9 fl (7.4-10.4); MONOCYTES % 11.9 % (2.0-8.0); NEUTROPHILS % 75.4 % (40.0-76.0); PLATELET 246 x1000/uL (130-400); RED BLOOD CELL COUNT 4.26 mill/uL (4.7-6.1); RED CELL DISTRIBUTION WIDTH 23.3 % (11.6-14.6)
[2022-02-04 12:37] LABS: PLATELET ESTIMATE NORMAL
[2022-02-04] MEDS ORDERED: ACETAMINOPHEN 325MG TABLET PO NR (16:00)
[2022-02-04] MEDS ORDERED: ACETAMINOPHEN 325MG TABLET PO PRN ×2 (18:45)
[2022-02-04] MEDS ORDERED: DOCUSATE SODIUM 100MG CAPSULE PO PRN (18:45)
[2022-02-04] MEDS ORDERED: ONDANSETRON HCL 4MG/2ML INJ IV PRN (18:45)
[2022-02-04] MEDS ORDERED: IPRATROPIUM/ALBUTEROL 0.5-3(2.5)MG/3ML NEB HHN PRN (18:45)
[2022-02-04] MEDS ORDERED: NALOXONE HCL 0.4MG/ML VIAL IV PRN (19:00)
[2022-02-04 19:05] VITALS: BP 148/83
[2022-02-04 19:41] LABS: AMYLASE 136 IU/L (25-115)
[2022-02-04 20:00] VITALS: BP 129/72
[2022-02-04 20:31] LABS: HEPATITIS B SURFACE ANTIGEN NEGATIVE
[2022-02-04] MEDS: HYDROCODONE/ACETAMINOPHEN 5/325MG TABLET PO PRN (22:49)
[2022-02-04] MEDS: LORAZEPAM 0.5MG TABLET PO PRN (22:49)
[2022-02-05] VITALS: BP 129/72
[2022-02-05 04:00] VITALS: BP 127/59
[2022-02-05 08:06] LABS: BASOPHILS % 0.7 % (0.0-2.0); EOSINOPHILS % 3.3 % (0.0-5.0); HEMATOCRIT. 33.1 % (42.0-52.0); HEMOGLOBIN. 11.1 g/dL (14.0-18.0); LYMPHOCYTES % 13.9 % (20.0-50.0); MEAN CORPUSCULAR HEMOGLOBIN 26.8 pg (28.0-32.0); MEAN CORPUSCULAR VOLUME 79.7 fL (80.0-94.0); MEAN PLATELET VOLUME 7.5 fl (7.4-10.4); MONOCYTES % 9.3 % (2.0-8.0); NEUTROPHILS % 72.8 % (40.0-76.0); PLATELET 219 x1000/uL (130-400); RED BLOOD CELL COUNT 4.16 mill/uL (4.7-6.1); RED CELL DISTRIBUTION WIDTH 22.5 % (11.6-14.6)
[2022-02-05 12:00] VITALS: BP 172/85
[2022-02-05] MEDS ORDERED: BISACODYL 5MG TABLET PO NR (15:00)
[2022-02-05] MEDS: CLONIDINE 0.1MG TABLET PO PRN (15:49)
[2022-02-05] MEDS: HYDROCODONE/ACETAMINOPHEN 5/325MG TABLET PO PRN ×2 (15:49→22:23)
[2022-02-05 16:00] VITALS: BP 161/82
[2022-02-05] MEDS: HYDRALAZINE 20MG/ML VIAL IV PRN (17:52)
[2022-02-05 20:00] VITALS: BP 119/59
[2022-02-05] MEDS: CARVEDILOL 3.125 MG TABLET PO SCH (22:22)
[2022-02-05] MEDS: LORAZEPAM 0.5MG TABLET PO PRN (22:23)
[2022-02-06] VITALS: BP_SYST 125; BP_SYST 175; BP_DIAS 66
[2022-02-06 04:00] VITALS: BP 160/80
[2022-02-06] MEDS: CLONIDINE 0.1MG TABLET PO PRN ×2 (05:17→12:48)
[2022-02-06 08:00] VITALS: BP 150/69
[2022-02-06 08:17] LABS: BASOPHILS % 0.6 % (0.0-2.0); EOSINOPHILS % 4.5 % (0.0-5.0); HEMATOCRIT. 28.2 % (42.0-52.0); HEMOGLOBIN. 9.3 g/dL (14.0-18.0); LYMPHOCYTES % 10.6 % (20.0-50.0); MEAN CORPUSCULAR HEMOGLOBIN 26.8 pg (28.0-32.0); MEAN CORPUSCULAR VOLUME 81.6 fL (80.0-94.0); MEAN PLATELET VOLUME 7.4 fl (7.4-10.4); MONOCYTES % 9.5 % (2.0-8.0); NEUTROPHILS % 74.8 % (40.0-76.0); PLATELET 222 x1000/uL (130-400); RED BLOOD CELL COUNT 3.46 mill/uL (4.7-6.1); RED CELL DISTRIBUTION WIDTH 22.6 % (11.6-14.6)
[2022-02-06] MEDS: CHOLECALCIFEROL (D3) 1000 UNIT TABLET PO SCH (08:40)
[2022-02-06] MEDS: CARVEDILOL 3.125 MG TABLET PO SCH ×2 (08:41→21:53)
[2022-02-06] MEDS ORDERED: POLYETHYLENE GLYCOL 3350 (17GM) 1 DOSE PACK PO SCH (09:15)
[2022-02-06 12:00] VITALS: BP 165/73
[2022-02-06] MEDS ORDERED: BISACODYL 5MG TABLET PO NR (15:15)
[2022-02-06 16:00] VITALS: BP 137/83
[2022-02-06 20:00] VITALS: BP 156/66
[2022-02-06] MEDS: HYDROCODONE/ACETAMINOPHEN 5/325MG TABLET PO PRN (21:54)
[2022-02-06] MEDS: TEMAZEPAM 15MG CAPSULE PO PRN (21:54)
[2022-02-07] VITALS (9 sets, daily range): BP systolic 139–182; BP diastolic 73–88
[2022-02-07] MEDS: CARVEDILOL 3.125 MG TABLET PO SCH ×2 (08:55→20:53)
[2022-02-07] MEDS: CHOLECALCIFEROL (D3) 1000 UNIT TABLET PO SCH (08:55)
[2022-02-07] MEDS ORDERED: LACTULOSE 20G/30ML UDC PO SCH (09:00)
[2022-02-07] MEDS: CLONIDINE 0.1MG TABLET PO PRN (15:34)
[2022-02-07] MEDS: TEMAZEPAM 15MG CAPSULE PO PRN (20:59)
[2022-02-07] MEDS: HYDRALAZINE 20MG/ML VIAL IV PRN (21:58)
[2022-02-08 03:38] VITALS: BP 165/88
[2022-02-08 04:03] VITALS: BP 160/71
[2022-02-08] MEDS: CLONIDINE 0.1MG TABLET PO PRN (04:05)
[2022-02-08 05:50] VITALS: BP 150/59
== END 2022-02-08 07:25 | DRG 282 ==
LOC: ER 10:52 → 8WST 16:02 → EDBEDREQ 16:06 → EDBEDREQTM 16:06 → ENRESERV 16:25
PROVIDERS: ADMIT Internal Medicine; ATTEND Internal Medicine
PROC: 5A1D70Z Performance of Urinary Filtration, Intermittent, Less than 6 Hours Per Day (ICD-10-PCS; principal; 2022-02-04)
PROC: 5A1D70Z Performance of Urinary Filtration, Intermittent, Less than 6 Hours Per Day (ICD-10-PCS; 2022-02-07)
DX: K85.90 Acute pancreatitis without necrosis or infection, unspecified (principal); I13.2 Hypertensive heart and chronic kidney disease with heart failure and with stage 5 chronic kidney disease, or end stage renal disease; I31.3 Pericardial effusion (noninflammatory); E46 Unspecified protein-calorie malnutrition; I48.92 Unspecified atrial flutter; D63.8 Anemia in other chronic diseases classified elsewhere; N18.6 End stage renal disease; I69.354 Hemiplegia and hemiparesis following cerebral infarction affecting left non-dominant side; J98.11 Atelectasis; E78.00 Pure hypercholesterolemia, unspecified; I50.40 Unspecified combined systolic (congestive) and diastolic (congestive) heart failure; K21.9 Gastro-esophageal reflux disease without esophagitis; B19.20 Unspecified viral hepatitis C without hepatic coma; J44.9 Chronic obstructive pulmonary disease, unspecified; K44.9 Diaphragmatic hernia without obstruction or gangrene; E78.5 Hyperlipidemia, unspecified; F14.90 Cocaine use, unspecified, uncomplicated; N28.1 Cyst of kidney, acquired; G89.4 Chronic pain syndrome; E87.1 Hypo-osmolality and hyponatremia; R32 Unspecified urinary incontinence; Z88.6 Allergy status to analgesic agent; Z79.899 Other long term (current) drug therapy; Z79.1 Long term (current) use of non-steroidal anti-inflammatories (NSAID); Z93.1 Gastrostomy status; Z68.21 Body mass index [BMI] 21.0-21.9, adult; Z95.828 Presence of other vascular implants and grafts; Z99.2 Dependence on renal dialysis
CPT/HCPCS: 36415; 71045; 74176; 80048; 80053; 82150; 84145; 85025; 86705; 86709; 86803; 87340; 93005; 99291; J0360; J2405; J7030

== ENCOUNTER 2022-03-28 12:47 | Inpatient (IN) | payer MEDICARE, MEDICAID ==
[~2022-03-28] VITALS: Ht 177.8 cm; Wt 67.8 kg
[2022-03-28] MEDS ORDERED: ONDANSETRON HCL 4MG/2ML INJ IV STA (13:24)
[2022-03-28] MEDS ORDERED: FAMOTIDINE 20MG/2ML VIAL IV ONE (13:30)
[2022-03-28 14:19] LABS: BASOPHILS % 0.7 % (0.0-2.0); EOSINOPHILS % 4.4 % (0.0-5.0); HEMATOCRIT. 37.2 % (42.0-52.0); HEMOGLOBIN. 12.5 g/dL (14.0-18.0); LYMPHOCYTES % 12.4 % (20.0-50.0); MEAN CORPUSCULAR HEMOGLOBIN 28.5 pg (28.0-32.0); MEAN CORPUSCULAR VOLUME 84.9 fL (80.0-94.0); MEAN PLATELET VOLUME 7.8 fl (7.4-10.4); MONOCYTES % 6.9 % (2.0-8.0); NEUTROPHILS % 75.6 % (40.0-76.0); PLATELET 250 x1000/uL (130-400); RED BLOOD CELL COUNT 4.38 mill/uL (4.7-6.1); RED CELL DISTRIBUTION WIDTH 20.8 % (11.6-14.6)
[2022-03-28 15:57] LABS: CHLORIDE 95 mEq/L (98-107)
[2022-03-28 15:59] LABS: INR 1.1; PROTHROMBIN TIME 11.4 sec (9.6-11.0)
[2022-03-28] MEDS ORDERED: MORPHINE SULFATE 4 MG/ML CPJ (NOT FOR IM USE) IV ONE (18:15)
[2022-03-29] MEDS ORDERED: MORPHINE SULFATE 4 MG/ML CPJ (NOT FOR IM USE) IV ONE (00:15)
[2022-03-29] MEDS ORDERED: MORPHINE SULFATE 4 MG/ML CPJ (NOT FOR IM USE) IV NR (02:45)
[2022-03-29] MEDS ORDERED: ACETAMINOPHEN 325MG TABLET PO PRN ×2 (04:30)
[2022-03-29] MEDS ORDERED: ONDANSETRON HCL 4MG/2ML INJ IV PRN (04:30)
[2022-03-29] MEDS ORDERED: HYDROMORPHONE HCL/PF 2MG/ML CPJ IV PRN (04:30)
[2022-03-29] MEDS ORDERED: TRAMADOL 50MG TABLET PO PRN (04:30)
[2022-03-29] MEDS ORDERED: DOCUSATE SODIUM 100MG CAPSULE PO PRN (04:30)
[2022-03-29 06:00] VITALS: BP 161/85
[2022-03-29] MEDS ORDERED: LACTULOSE 20G/30ML UDC PO NR (09:15)
[2022-03-29] MEDS ORDERED: NA PHOS,M-B/NA PHOS,DI-BA ENEMA 118ML PR NR (09:15)
[2022-03-29] MEDS ORDERED: NALOXONE HCL 0.4MG/ML VIAL IV PRN (09:30)
[2022-03-29] MEDS: AMLODIPINE 10MG TABLET PO SCH (09:55)
[2022-03-29] MEDS: ENOXAPARIN 30MG/0.3ML SYR SUBCUT SCH (09:55)
[2022-03-29] MEDS ORDERED: POTASSIUM CHLORIDE 20MEQ TABLET SR PO NR (10:00)
[2022-03-29] MEDS: CHOLECALCIFEROL (D3) 1000 UNIT TABLET PO SCH (10:58)
[2022-03-29] MEDS: CINACALCET HCL 60MG TABLET PO SCH (10:58)
[2022-03-29] MEDS: CARVEDILOL 3.125 MG TABLET PO SCH ×2 (10:59→20:56)
[2022-03-29 16:30] VITALS: BP 164/92
[2022-03-29 17:10] LABS: HEPATITIS B SURFACE ANTIGEN NEGATIVE
[2022-03-29] MEDS: ATORVASTATIN CALCIUM 20MG TABLET PO SCH (20:55)
[2022-03-29] MEDS: HYDROCODONE/ACETAMINOPHEN 5/325MG TABLET PO PRN (20:57)
[2022-03-29] MEDS: GUAIFENESIN 200MG/10ML SUGAR FREE UDC PO PRN (20:58)
[2022-03-30] VITALS: BP 147/77
[2022-03-30] MEDS: GUAIFENESIN 200MG/10ML SUGAR FREE UDC PO PRN (03:31)
[2022-03-30 04:00] VITALS: BP 158/82
[2022-03-30 06:56] LABS: BASOPHILS % 0.7 % (0.0-2.0); EOSINOPHILS % 6.8 % (0.0-5.0); HEMATOCRIT. 37.3 % (42.0-52.0); HEMOGLOBIN. 12.3 g/dL (14.0-18.0); LYMPHOCYTES % 15.4 % (20.0-50.0); MEAN CORPUSCULAR HEMOGLOBIN 28.4 pg (28.0-32.0); MEAN PLATELET VOLUME 7.5 fl (7.4-10.4); MONOCYTES % 7.5 % (2.0-8.0); NEUTROPHILS % 69.6 % (40.0-76.0); PLATELET 198 x1000/uL (130-400); RED BLOOD CELL COUNT 4.33 mill/uL (4.7-6.1); RED CELL DISTRIBUTION WIDTH 20.4 % (11.6-14.6)
[2022-03-30 07:44] LABS: CHLORIDE 95 mEq/L (98-107)
[2022-03-30 07:54] LABS: HDL CHOLESTEROL 46 mg/dL (40-59); LDL CHOLESTEROL 36 mg/dL (5-100)
[2022-03-30 08:00] VITALS: BP 155/79
[2022-03-30] MEDS: CHOLECALCIFEROL (D3) 1000 UNIT TABLET PO SCH (10:22)
[2022-03-30] MEDS: CINACALCET HCL 60MG TABLET PO SCH (10:23)
[2022-03-30] MEDS: CARVEDILOL 3.125 MG TABLET PO SCH ×2 (10:23→20:44)
[2022-03-30] MEDS: AMLODIPINE 10MG TABLET PO SCH (10:23)
[2022-03-30] MEDS: ENOXAPARIN 30MG/0.3ML SYR SUBCUT SCH (10:24)
[2022-03-30 12:00] VITALS: BP 174/86
[2022-03-30 16:00] VITALS: BP 146/75
[2022-03-30 20:00] VITALS: BP 140/85
[2022-03-30] MEDS: HYDROCODONE/ACETAMINOPHEN 5/325MG TABLET PO PRN (20:43)
[2022-03-30] MEDS: ATORVASTATIN CALCIUM 20MG TABLET PO SCH (20:44)
[2022-03-30] MEDS ORDERED: ZOLPIDEM TARTRATE 5MG TABLET PO PRN (21:00)
[2022-03-31] VITALS: BP 144/75
[2022-03-31 04:00] VITALS: BP 142/81
[2022-03-31 08:00] VITALS: BP 172/86
[2022-03-31] MEDS: CHOLECALCIFEROL (D3) 1000 UNIT TABLET PO SCH (09:40)
[2022-03-31] MEDS: CINACALCET HCL 60MG TABLET PO SCH (09:41)
[2022-03-31] MEDS: AMLODIPINE 10MG TABLET PO SCH (09:41)
[2022-03-31] MEDS: ENOXAPARIN 30MG/0.3ML SYR SUBCUT SCH (09:41)
[2022-03-31] MEDS: CARVEDILOL 3.125 MG TABLET PO SCH ×2 (09:41→21:06)
[2022-03-31 12:00] VITALS: BP 143/73
[2022-03-31 16:00] VITALS: BP 147/79
[2022-03-31 20:00] VITALS: BP 150/82
[2022-03-31] MEDS: ATORVASTATIN CALCIUM 20MG TABLET PO SCH (21:06)
[2022-03-31] MEDS: HYDROCODONE/ACETAMINOPHEN 5/325MG TABLET PO PRN (21:07)
[2022-04-01] VITALS: BP 155/77
[2022-04-01 04:00] VITALS: BP 149/98
[2022-04-01 05:24] VITALS: BP 149/98
[2022-04-01 08:00] VITALS: BP 154/93
[2022-04-01] MEDS: CHOLECALCIFEROL (D3) 1000 UNIT TABLET PO SCH (09:46)
[2022-04-01] MEDS: CINACALCET HCL 60MG TABLET PO SCH (09:47)
[2022-04-01] MEDS: ENOXAPARIN 30MG/0.3ML SYR SUBCUT SCH (09:47)
[2022-04-01 12:00] VITALS: BP 105/75
== END 2022-04-01 16:45 | DRG 254 ==
LOC: ER 13:00 → MICUSO 23:41 → 7WST 03-29 05:43 → 7EST 03-30 09:16
PROVIDERS: ADMIT Hospitalist; ATTEND Hospitalist
PROC: 5A1D70Z Performance of Urinary Filtration, Intermittent, Less than 6 Hours Per Day (ICD-10-PCS; principal; 2022-03-30)
DX: K59.00 Constipation, unspecified (principal); I50.33 Acute on chronic diastolic (congestive) heart failure; I31.3 Pericardial effusion (noninflammatory); I42.9 Cardiomyopathy, unspecified; E46 Unspecified protein-calorie malnutrition; I48.92 Unspecified atrial flutter; D63.8 Anemia in other chronic diseases classified elsewhere; N18.6 End stage renal disease; J44.9 Chronic obstructive pulmonary disease, unspecified; K86.1 Other chronic pancreatitis; I13.2 Hypertensive heart and chronic kidney disease with heart failure and with stage 5 chronic kidney disease, or end stage renal disease; G89.4 Chronic pain syndrome; E87.6 Hypokalemia; E78.00 Pure hypercholesterolemia, unspecified; R77.8 Other specified abnormalities of plasma proteins; K21.9 Gastro-esophageal reflux disease without esophagitis; E78.5 Hyperlipidemia, unspecified; I69.354 Hemiplegia and hemiparesis following cerebral infarction affecting left non-dominant side; I69.322 Dysarthria following cerebral infarction; I69.391 Dysphagia following cerebral infarction; Z68.21 Body mass index [BMI] 21.0-21.9, adult; Z88.6 Allergy status to analgesic agent; Z93.1 Gastrostomy status; Z99.2 Dependence on renal dialysis; Z92.3 Personal history of irradiation; Z86.19 Personal history of other infectious and parasitic diseases
CPT/HCPCS: 36415; 71045; 74176; 80048; 80053; 80061; 83735; 84484; 85025; 86705; 86709; 86803; 86850; 86900; 87340; 93005; 93306; 93970; 99285; J1170; J1650; J2270; J2405; J3490